=== PATIENT | female | born 1940 | race Caucasian/White ===

== ENCOUNTER 2020-08-07 14:30 | Emergency (ER) | payer MEDICARE, SELFPAY ==
[2020-08-07 15:12] VITALS: BP 194/73; PULSE 105; RESP 18; TEMP 36.6; O2SAT 95; BMI 21.6
[2020-08-07 16:31] LABS: Basophils Absolute Auto 0.1 X10*3/uL (0.0-0.2); Basophils Percent Auto 0.4 % (0-2); Eosinophils Percent Auto 0.1 % (0-4); Hematocrit 49.6 % (37-47); Hemoglobin 15.8 g/dl (12.0-16.0); Imm Gran Abs Auto 0.07 X10*3/uL (0.00-0.03); Imm Gran Pct Auto 0.5 % (0.0-0.4); Lymphocytes Absolute Auto 0.9 X10*3/uL (1.2-4.9); MANUAL DIFF FLAG NO; Mean Corpuscular HGB Conc 31.9 g/dl (31.0-35.0); Mean Corpuscular Hemoglobin 30.5 pg (27.0-33.0); Mean Corpuscular Volume 95.8 fL (80-98); Mean Platelet Volume 9.6 fL (9.4-12.3); Monocytes Absolute Auto 0.6 X10*3/uL (0.1-1.2); Monocytes Percent Auto 4.3 % (2-11); Neutrophils Absolute Auto 11.9 X10*3/uL (2.0-8.3); Neutrophils Percent Auto 87.7 % (45-73); OBS Int Ctl Valid YES; OBS1 NEG (NEG); Platelet Count 797 X10*3/uL (160-400); Red Blood Count 5.18 X10*6/uL (4.20-5.50); Red Cell Distribution Width 15.7 % (11.0-16.0); White Blood Count 13.5 X10*3/uL (4.8-10.8)
[2020-08-07] MEDS: 0.9 % Sodium Chloride 1,000 ML 999 ML IVCONT (16:33)
--- NOTE | 2020-08-07 16:41 | ED.GIBLEED ---
HPI - GI Bleed General Chief complaint: GI Bleed Stated complaint: Vaginal bleeding Time Seen by Provider: 08/07/20 15:59 Source: patient Mode of arrival: ambulatory History of Present Illness HPI Narrative: 79-year-old female with a past medical history of GI bleed, bleeding hemorrhoids, presenting to ED complaining of abdominal cramping, diarrhea and bright red blood per rectum x4 days. Also reports nausea and vomiting on Thursday which is resolved at present. Admits to similar symptoms in the past with her hemorrhoids. Denies taking anticoagulation. Denies fever, chills, dysuria, hematuria, lightheadedness/dizziness, rectal pain. Denies suspicious food intake or recent travel Related Data Previous Rx's Medication Instructions Recorded lisinopril 5 mg tablet 5 mg PO DAILY #30 tab 06/06/20 Allergies Allergy/AdvReac Type Severity Reaction Status Date / Time No Known Allergies Allergy Unknown Unverified 05/17/20 16:21 tetanus and diphtheria Allergy Unknown severe rash Verified 08/07/20 12:52 toxoids pineapple Allergy Unknown rash Uncoded 08/07/20 12:52 Review of Systems Review of Systems: Constitutional: No Weight loss, No Fever, No Chills, No Night Sweats, No Fatigue, No Malaise Cardiovascular: No Chest Pain, No SOB, No Edema Respiratory: No Cough, No Sputum, No Wheezing, No Smoke Exposure, No Dyspnea Gastrointestinal: + Nausea (resolved), + Vomiting (resolved), +Diarrhea, No Constipation, +Abdominal cramping, No Hematochezia, No Melena, +brbpr Genitourinary:No Dysuria, No Urinary Frequency, No Hematuria,No Flank Pain Musculoskeletal: No joint pain, No Myalgias, No Joint Swelling Skin: No Skin Lesions, No rash Neuro: No Weakness, No Numbness, No Paresthesias, No Loss of Consciousness, No Dizziness, No Headache Yes all other systems are reviewed and are negative PMFSH Past Medical History Attestation statement: The following information was validated with the patient. Medical History (Updated 08/07/20 @ 17:12 by AD Calderon) Bleeding hemorrhoids Social History Social History Alcohol intake: never Smoking Status: Never smoker Use of substances other than those prescribed or required for medical reasons: No Advance Directives: No Advance Directives Information Provided: No Physical Exam Vital Signs: Vital Signs: Last Vital Signs Temp 97.9 F 08/07/20 15:12 Pulse 105 H 08/07/20 15:12 Resp 18 08/07/20 15:12 BP 194/73 H 08/07/20 15:12 Pulse Ox 95 08/07/20 15:12 Body Mass Index 21.6 Const: General: cooperative and healthy appearing Orientation/consciousness: patient oriented x3 Limitations: no limitations HENMT: Head: Yes normal to inspection Ears: hearing grossly normal bilaterally General nose exam: Normal external nose present Face and sinus: Yes normal facial exam Eyes: General: appearance normal, both eyes and all related structures EOM: EOMs intact bilaterally Neck: Neck: Yes normal visual inspection and Yes no meningeal signs Resp: Effort & Inspection: normal respiratory effort Cardio: Rate: regular rate GI: Inspection: Yes normal to inspection Palpation (GI): Soft to palpation, nontender, no guarding and not rigid : Other: Non thrombosed or inflamed hemorrhoid noted on rectal General: Yes no CVA tenderness Back/Spine/Pelvis: Back: no CVA tenderness Skin: Rashes: no rashes Wounds: no wounds Neuro: General: patient oriented x3 and no meningeal signs Extrem: General: Yes normal to inspection Course Course Course Narrative: -1647--mild leukocytosis of 13.5, occult stool negative > likely hemorrhoidal bleeding --1700-potassium slightly elevated 5.2, BUN at baseline, AST slightly elevated, labs otherwise unremarkable Lab results discussed with patient including worrisome signs and symptoms and strict return precautions. Patient is to follow up with GI outpatient. She verbalized understanding and feels safe for discharge home MDM - GI Bleed MDM Narrative Medical decision making narrative: 79-year-old female with a past medical history of GI bleed, bleeding hemorrhoids, presenting to ED complaining of abdominal cramping, diarrhea and bright red blood per rectum x4 days. On exam mildly tachycardic, NAD/nontoxic appearing, abdomen soft and nontender, no rebound or guarding, no CVAT. Hemorrhoids noted on rectal. Concern for hemorrhoidal bleeding vs rectal bleed/occult bleed vs anemia vs gastroenteritis. Plan: Labs, UA, occult stool, reassess Differential Diagnosis Differential diagnosis: Likely hemorrhoids, infectious diarrhea, gastritis, Lower gastrointestinal hemorrhage, hematochezia and melena Lab Data Result diagrams: 08/07/20 16:20 08/07/20 16:20 Labs: Lab Results 08/07/20 08/07/20 08/07/20 Range/Units 16:20 16:20 16:20 WBC 13.5 H (4.8-10.8) X10*3/uL RBC 5.18 (4.20-5.50) X10*6/uL Hgb 15.8 (12.0-16.0) g/dl Hct 49.6 H (37-47) % MCV 95.8 (80-98) fL MCH 30.5 (27.0-33.0) pg MCHC 31.9 (31.0-35.0) g/dl RDW 15.7 (11.0-16.0) % Plt Count 797 H (160-400) X10*3/uL MPV 9.6 (9.4-12.3) fL Immature Gran % (Auto) 0.5 H (0.0-0.4) % Neut % (Auto) 87.7 H (45-73) % Lymph % (Auto) 7.0 L (20-40) % [place] % (Auto) 4.3 (2-11) % Eos % (Auto) 0.1 (0-4) % Baso % (Auto) 0.4 (0-2) % Lymph # (Auto) 0.9 L (1.2-4.9) X10*3/uL [place] # (Auto) 0.6 (0.1-1.2) X10*3/uL Eos # (Auto) 0.0 (0.0-0.4) X10*3/uL Baso # (Auto) 0.1 (0.0-0.2) X10*3/uL Abs Immat Gran (auto) 0.07 H (0.00-0.03) X10*3/uL Absolute Neuts (auto) 11.9 H (2.0-8.3) X10*3/uL Absolute Nucleated RBC 0.000 (0.0-0.012) X10*3/uL Nucleated RBC % (auto) 0.0 (0.0-0.2) /100WBC PT 11.8 (10.8-13.0) SEC INR 1.0 (0.9-1.1) APTT 37.7 (24.1-38.0) SEC Sodium 139 (135-145) mmol/L Potassium 5.2 H (3.3-5.1) mmol/l Chloride 102 (96-108) mmol/L Carbon Dioxide 24 (22-29) mmol/L Anion Gap 18 (12-20) BUN 18 H (9-16) mg/dL Creatinine 0.86 (0.5-1.4) mg/dL Estim Creat Clear Calc 45.3 Estimated GFR > 60 Random Glucose 100 (60-115) mg/dL Calcium 9.7 (8.4-10.2) mg/dL Magnesium 2.3 (1.6-2.6) mg/dL Total Bilirubin 0.5 (0.0-1.0) mg/dL Direct Bilirubin 0.2 (0.0-0.5) mg/dL AST 34 H (5-31) U/L ALT 24 (0-31) U/L Alkaline Phosphatase 64 (39-117) U/L Total Protein 7.6 (6.5-8.0) g/dL Albumin 5.0 (3.5-5.0) g/dL Lipase 37 (8-78) U/L Stool Occult Blood (NEG) 08/07/20 Range/Units 16:20 WBC (4.8-10.8) X10*3/uL RBC (4.20-5.50) X10*6/uL Hgb (12.0-16.0) g/dl Hct (37-47) % MCV (80-98) fL MCH (27.0-33.0) pg MCHC (31.0-35.0) g/dl RDW (11.0-16.0) % Plt Count (160-400) X10*3/uL MPV (9.4-12.3) fL Immature Gran % (Auto) (0.0-0.4) % Neut % (Auto) (45-73) % Lymph % (Auto) (20-40) % [place] % (Auto) (2-11) % Eos % (Auto) (0-4) % Baso % (Auto) (0-2) % Lymph # (Auto) (1.2-4.9) X10*3/uL [place] # (Auto) (0.1-1.2) X10*3/uL Eos # (Auto) (0.0-0.4) X10*3/uL Baso # (Auto) (0.0-0.2) X10*3/uL Abs Immat Gran (auto) (0.00-0.03) X10*3/uL Absolute Neuts (auto) (2.0-8.3) X10*3/uL Absolute Nucleated RBC (0.0-0.012) X10*3/uL Nucleated RBC % (auto) (0.0-0.2) /100WBC PT (10.8-13.0) SEC INR (0.9-1.1) APTT (24.1-38.0) SEC Sodium (135-145) mmol/L Potassium (3.3-5.1) mmol/l Chloride (96-108) mmol/L Carbon Dioxide (22-29) mmol/L Anion Gap (12-20) BUN (9-16) mg/dL Creatinine (0.5-1.4) mg/dL Estim Creat Clear Calc Estimated GFR Random Glucose (60-115) mg/dL Calcium (8.4-10.2) mg/dL Magnesium (1.6-2.6) mg/dL Total Bilirubin (0.0-1.0) mg/dL Direct Bilirubin (0.0-0.5) mg/dL AST (5-31) U/L ALT (0-31) U/L Alkaline Phosphatase (39-117) U/L Total Protein (6.5-8.0) g/dL Albumin (3.5-5.0) g/dL Lipase (8-78) U/L Stool Occult Blood NEG (NEG) Discharge Plan Discharge Clinical Impression: Bleeding hemorrhoid Patient Disposition: Home, Self-Care Instructions: Hemorrhoids (ED) Additional Instructions: Your blood work was reassuring/unremarkable today in the ED Your stool was negative for blood You bleeding is likely from hemorrhoids You need to follow-up with GI If bleeding persists or worsens, you develop constant worsening abdominal pain, nausea/vomiting, or unable to eat or drink, have fever, or lightheadedness/dizziness return to the ED immediately Prescriptions: No Action lisinopril 5 mg tablet 5 mg PO DAILY Qty: 30 RF: 3 Referrals: Andrea Doran MD [Physician] - 5 days
[2020-08-07 16:43] LABS: Prothrombin Time 11.8 SEC (10.8-13.0)
[2020-08-07 16:45] LABS: Partial Thromboplastin Time 37.7 SEC (24.1-38.0)
[2020-08-07 17:08] LABS: Alanine Aminotransferase 24 U/L (0-31); Alkaline Phosphatase 64 U/L (39-117); Anion Gap 18 (12-20); Aspartate Amino Transferase 34 U/L (5-31); Bilirubin Direct 0.2 mg/dL (0.0-0.5); Bilirubin Total 0.5 mg/dL (0.0-1.0); Blood Urea Nitrogen 18 mg/dL (9-16); Calcium 9.7 mg/dL (8.4-10.2); Carbon Dioxide 24 mmol/L (22-29); Chloride 102 mmol/L (96-108); Creatinine Clr Calc Pharmacy 45.3; Estimated Glomerular Filt Rate > 60; Glucose Random 100 mg/dL (60-115); Lipase 37 U/L (8-78); Magnesium 2.3 mg/dL (1.6-2.6); Potassium 5.2 mmol/l (3.3-5.1); Sodium 139 mmol/L (135-145); Total Protein 7.6 g/dL (6.5-8.0)
[2020-08-07 17:23] VITALS: BP 165/57; PULSE 93; TEMP 36.7; O2SAT 98
[2020-08-07 17:25] LABS: Glucose Urine UA NEG (NEG); Leukocyte Esterase Urine NEG (NEG); Nitrite Urine NEG (NEG); PH 5.5 (5.0-8.0); Specific Gravity - Urine >= 1.030 (1.005-1.025); Urine Blood 1+ (NEG); Urine Ketones 40 MG/DL (NEG); Urine Protein NEG (NEG-TRACE)
[2020-08-07 17:31] LABS: Appearance Urine CLEAR; Color Urine YELLOW
[2020-08-07 17:35] LABS: Bacteria Urine 1+ /LPF; Squamous Epithelial Cell Urine 1+ /LPF
== END 2020-08-07 19:11 | disposition home or self-care (01) ==
PROVIDERS: Physician Assistant; Emergency Provider Emergency Medicine; PCP Internal Medicine
DX: K64.9 Unspecified hemorrhoids (principal); K62.5 Hemorrhage of anus and rectum; R11.2 Nausea with vomiting, unspecified
CPT/HCPCS: 36415; 80048; 80076; 81001; 82272; 83690; 83735; 85025; 85610; 85730; 96360; 99284

== ENCOUNTER 2020-09-04 08:51 | Outpatient (REF) | payer MEDICARE, SELFPAY ==
[2020-09-04 11:15] LABS: MANUAL DIFF FLAG NO
[2020-09-04 11:33] LABS: Basophils Absolute Auto 0.1 X10*3/uL (0.0-0.2); Eosinophils Absolute Auto 0.2 X10*3/uL (0.0-0.4); Eosinophils Percent Auto 2.1 % (0-4); Hematocrit 47.8 % (37-47); Hemoglobin 15.1 g/dl (12.0-16.0); Imm Gran Abs Auto 0.02 X10*3/uL (0.00-0.03); Imm Gran Pct Auto 0.2 % (0.0-0.4); Lymphocytes Absolute Auto 1.8 X10*3/uL (1.2-4.9); Lymphocytes Percent Auto 20.8 % (20-40); Mean Corpuscular HGB Conc 31.6 g/dl (31.0-35.0); Mean Corpuscular Hemoglobin 30.9 pg (27.0-33.0); Monocytes Absolute Auto 0.5 X10*3/uL (0.1-1.2); Monocytes Percent Auto 6.4 % (2-11); Neutrophils Absolute Auto 5.8 X10*3/uL (2.0-8.3); Neutrophils Percent Auto 69.5 % (45-73); Platelet Count 793 X10*3/uL (160-400); Red Blood Count 4.88 X10*6/uL (4.20-5.50); Red Cell Distribution Width 15.8 % (11.0-16.0); White Blood Count 8.4 X10*3/uL (4.8-10.8)
[2020-09-04 11:52] LABS: Alanine Aminotransferase 21 U/L (0-31); Albumin Level 4.7 g/dL (3.5-5.0); Alkaline Phosphatase 55 U/L (39-117); Anion Gap 15 (12-20); Aspartate Amino Transferase 25 U/L (5-31); Bilirubin Total 0.4 mg/dL (0.0-1.0); Blood Urea Nitrogen 20 mg/dL (9-16); Calcium 9.4 mg/dL (8.4-10.2); Carbon Dioxide 27 mmol/L (22-29); Chloride 102 mmol/L (96-108); Estimated Glomerular Filt Rate > 60; Glucose Random 90 mg/dL (60-115); Potassium 5.2 mmol/l (3.3-5.1); Sodium 139 mmol/L (135-145); Total Protein 7.1 g/dL (6.5-8.0)
[2020-09-04 12:00] LABS: TSH reflex Free T4 2.39 mIU/mL (0.32-4.0)
== END 2020-09-04 08:52 | disposition home or self-care (01) ==
LOC: HO.HMGCLDS 08:51
PROVIDERS: PCP Internal Medicine; Visit Provider Internal Medicine
DX: I10 Essential (primary) hypertension (principal); E03.9 Hypothyroidism, unspecified; D47.3 Essential (hemorrhagic) thrombocythemia
CPT/HCPCS: 36415; 80053; 84443; 85025

== ENCOUNTER 2020-10-03 | Outpatient (REF) | payer MEDICARE, SELFPAY | END 2020-10-03 00:01 | disposition home or self-care (01) | LOC: HO.VC | PROVIDERS: Visit Provider Internal Medicine | DX: Z23 Encounter for immunization (principal) | CPT/HCPCS: 0011A ==

== ENCOUNTER 2020-10-30 | Outpatient (REF) | payer MEDICARE, SELFPAY | END 2020-10-30 00:01 | disposition home or self-care (01) | LOC: HO.VC | PROVIDERS: Visit Provider Internal Medicine | DX: Z23 Encounter for immunization (principal) | CPT/HCPCS: 0012A ==

== ENCOUNTER → 2020-11-29 12:59 | Outpatient (BNV) | payer MEDICARE, SELFPAY | PROVIDERS: PCP Internal Medicine; Visit Provider Internal Medicine Medical Oncology | DX: D47.3 Essential (hemorrhagic) thrombocythemia (principal) | CPT/HCPCS: 99213; 99214 ==

== ENCOUNTER 2021-03-26 13:05 | Outpatient (REF) | payer MEDICARE, SELFPAY ==
[2021-03-26 13:56] LABS: MANUAL DIFF FLAG NO
[2021-03-26 14:03] LABS: Basophils Absolute Auto 0.1 X10*3/uL (0.0-0.2); Basophils Percent Auto 0.8 % (0-2); Eosinophils Absolute Auto 0.1 X10*3/uL (0.0-0.4); Eosinophils Percent Auto 0.6 % (0-4); Hematocrit 48.6 % (37-47); Hemoglobin 15.5 g/dl (12.0-16.0); Imm Gran Abs Auto 0.04 X10*3/uL (0.00-0.03); Imm Gran Pct Auto 0.4 % (0.0-0.4); Lymphocytes Absolute Auto 1.5 X10*3/uL (1.2-4.9); Lymphocytes Percent Auto 15.3 % (20-40); Mean Corpuscular HGB Conc 31.9 g/dl (31.0-35.0); Mean Corpuscular Hemoglobin 30.7 pg (27.0-33.0); Mean Corpuscular Volume 96.2 fL (80-98); Mean Platelet Volume 9.7 fL (9.4-12.3); Monocytes Absolute Auto 0.6 X10*3/uL (0.1-1.2); Monocytes Percent Auto 5.9 % (2-11); Neutrophils Absolute Auto 7.6 X10*3/uL (2.0-8.3); Platelet Count 877 X10*3/uL (160-400); Red Blood Count 5.05 X10*6/uL (4.20-5.50); Red Cell Distribution Width 16.2 % (11.0-16.0); White Blood Count 9.9 X10*3/uL (4.8-10.8)
[2021-03-26 14:16] LABS: Anion Gap 14 (12-20); Blood Urea Nitrogen 14 mg/dL (9-16); Calcium 10.4 mg/dL (8.4-10.2); Carbon Dioxide 28 mmol/L (22-29); Chloride 103 mmol/L (96-108); Estimated Glomerular Filt Rate 60; Glucose Random 99 mg/dL (60-115); Potassium 5.4 mmol/L (3.3-5.1); Sodium 140 mmol/L (135-145)
[2021-03-26 14:40] LABS: TSH reflex Free T4 1.79 uIU/mL (0.32-4.0)
== END 2021-03-26 13:06 | disposition home or self-care (01) ==
LOC: HO.HMGCLDS 13:05
PROVIDERS: PCP Internal Medicine; Visit Provider Internal Medicine
DX: D47.3 Essential (hemorrhagic) thrombocythemia (principal); E03.8 Other specified hypothyroidism; I10 Essential (primary) hypertension; M81.0 Age-related osteoporosis without current pathological fracture
CPT/HCPCS: 36415; 80048; 84443; 85025

== ENCOUNTER 2021-05-20 14:10 | Outpatient (REF) | payer MEDICARE, SELFPAY ==
--- NOTE | ~2021-05-20 | XR_ITS ---
EXAMINATION: XR FOREARM, RIGHT CLINICAL INFORMATION: Hemorrhage COMPARISON: None TECHNIQUE: AP and lateral views of the right forearm were obtained. FINDINGS: The bones and soft tissues are normal. No fracture. Imaged portions of the elbow and wrist are unremarkable. XR/XR forearm RT 2V IMPRESSION: Normal right forearm.
== END 2021-05-20 14:11 | disposition home or self-care (01) ==
LOC: HO.HMGCX 14:10
PROVIDERS: PCP Internal Medicine; Visit Provider Internal Medicine
DX: Z13.89 Encounter for screening for other disorder (principal)
CPT/HCPCS: 73090

== ENCOUNTER 2021-05-30 09:09 | Outpatient (REF) | payer MEDICARE, SELFPAY ==
--- NOTE | ~2021-05-30 | XR_ITS ---
EXAMINATION: XR SACRUM AND COCCYX CLINICAL INFORMATION: Sacral pain. COMPARISON: None TECHNIQUE: 2 views of the sacrum and 2 views of the coccyx were obtained. FINDINGS: There are no fractures. No bone, joint or soft tissue abnormality is demonstrated. XR/XR sacrum coccyx min 2V IMPRESSION: Unremarkable SI joints and sacrum. The soft tissues are unremarkable.
== END 2021-05-30 09:10 | disposition home or self-care (01) ==
LOC: HO.HMGCX 09:09
PROVIDERS: PCP Internal Medicine; Visit Provider Internal Medicine
DX: Z13.89 Encounter for screening for other disorder (principal)
CPT/HCPCS: 72220

== ENCOUNTER 2021-07-24 15:05 | Outpatient (REF) | payer MEDICARE, SELFPAY ==
[2021-07-24 15:50] LABS: Influenza A PCR NEGATIVE (Negative); Influenza B PCR NEGATIVE (Negative); Resp Syncy Virus RNA Qual PCR NEGATIVE (Negative); SARS COV2 PCR INHOUSE NEGATIVE (Negative)
== END 2021-07-24 15:06 | disposition home or self-care (01) ==
LOC: HO.LNP 15:05
PROVIDERS: Visit Provider Physician Assistant Medical
DX: J06.9 Acute upper respiratory infection, unspecified (principal); B34.9 Viral infection, unspecified; Z20.822 Contact with and (suspected) exposure to COVID-19
CPT/HCPCS: 0241U; 87071

== ENCOUNTER 2021-09-24 12:01 | Outpatient (REF) | payer MEDICARE, SELFPAY ==
[2021-09-24 13:49] LABS: MANUAL DIFF FLAG NO
[2021-09-24 13:54] LABS: Basophils Absolute Auto 0.1 X10*3/uL (0.0-0.2); Basophils Percent Auto 0.8 % (0-2); Eosinophils Absolute Auto 0.2 X10*3/uL (0.0-0.4); Eosinophils Percent Auto 1.6 % (0-4); Hematocrit 48.2 % (37.0-47.0); Hemoglobin 15.4 g/dl (12.0-16.0); Imm Gran Abs Auto 0.03 X10*3/uL (0.00-0.03); Imm Gran Pct Auto 0.3 % (0.0-0.4); Lymphocytes Absolute Auto 1.8 X10*3/uL (1.2-4.9); Lymphocytes Percent Auto 18.7 % (20-40); Mean Corpuscular Volume 97.2 fL (80.0-98.0); Mean Platelet Volume 9.7 fL (9.4-12.3); Monocytes Absolute Auto 0.8 X10*3/uL (0.1-1.2); Monocytes Percent Auto 7.8 % (2-11); Neutrophils Absolute Auto 6.9 x10*3/uL (2.0-8.3); Neutrophils Percent Auto 70.8 % (45-73); Platelet Count 846 X10*3/uL (160-400); Red Blood Count 4.96 X10*6/uL (4.20-5.50); Red Cell Distribution Width 16.2 % (11.0-16.0); White Blood Count 9.8 X10*3/uL (4.8-10.8)
[2021-09-24 14:10] LABS: Alanine Aminotransferase 18 U/L (0-31); Albumin Level 4.5 g/dL (3.5-5.0); Alkaline Phosphatase 63 U/L (39-117); Anion Gap 13 (12-20); Aspartate Amino Transferase 25 U/L (5-31); Bilirubin Total 0.4 mg/dL (0.0-1.0); Blood Urea Nitrogen 19 mg/dL (9-16); Calcium 10.5 mg/dL (8.4-10.2); Carbon Dioxide 30 mmol/L (22-29); Chloride 102 mmol/L (96-108); Estimated Glomerular Filt Rate > 60; Glucose Random 95 mg/dL (60-115); Potassium 5.3 mmol/L (3.3-5.1); Sodium 140 mmol/L (135-145); Total Protein 7.1 g/dL (6.5-8.0)
[2021-09-24 14:31] LABS: TSH reflex Free T4 1.82 uIU/mL (0.32-4.0)
== END 2021-09-24 12:02 | disposition home or self-care (01) ==
LOC: HO.HMGCLDS 12:01
PROVIDERS: PCP Internal Medicine; Visit Provider Internal Medicine
DX: E03.8 Other specified hypothyroidism (principal); E87.5 Hyperkalemia; I10 Essential (primary) hypertension; D47.3 Essential (hemorrhagic) thrombocythemia
CPT/HCPCS: 36415; 80053; 84443; 85025

== ENCOUNTER 2022-03-25 11:46 | Outpatient (REF) | payer MEDICARE, SELFPAY ==
[2022-03-25 13:45] LABS: MANUAL DIFF FLAG NO
[2022-03-25 13:52] LABS: Basophils Absolute Auto 0.1 X10*3/uL (0.0-0.2); Basophils Percent Auto 0.9 % (0-2); Eosinophils Absolute Auto 0.1 X10*3/uL (0.0-0.4); Eosinophils Percent Auto 1.1 % (0-4); Hematocrit 48.8 % (37.0-47.0); Hemoglobin 15.8 g/dl (12.0-16.0); Imm Gran Abs Auto 0.02 X10*3/uL (0.00-0.03); Imm Gran Pct Auto 0.2 % (0.0-0.4); Lymphocytes Absolute Auto 1.5 X10*3/uL (1.2-4.9); Lymphocytes Percent Auto 17.2 % (20-40); Mean Corpuscular HGB Conc 32.4 g/dl (31.0-35.0); Mean Corpuscular Hemoglobin 31.5 pg (27.0-33.0); Mean Corpuscular Volume 97.4 fL (80.0-98.0); Mean Platelet Volume 9.5 fL (9.4-12.3); Monocytes Absolute Auto 0.5 X10*3/uL (0.1-1.2); Neutrophils Absolute Auto 6.5 x10*3/uL (2.0-8.3); Neutrophils Percent Auto 74.6 % (45-73); Platelet Count 816 X10*3/uL (160-400); Red Blood Count 5.01 X10*6/uL (4.20-5.50); Red Cell Distribution Width 16.4 % (11.0-16.0); White Blood Count 8.7 X10*3/uL (4.8-10.8)
[2022-03-25 16:20] LABS: Alanine Aminotransferase 21 U/L (0-31); Albumin Level 4.7 g/dL (3.5-5.0); Alkaline Phosphatase 63 U/L (39-117); Anion Gap 15 (12-20); Aspartate Amino Transferase 26 U/L (5-31); Bilirubin Total 0.5 mg/dL (0.0-1.0); Blood Urea Nitrogen 15 mg/dL (9-16); Calcium 9.9 mg/dL (8.4-10.2); Carbon Dioxide 28 mmol/L (22-29); Chloride 103 mmol/L (96-108); Cholesterol 238 mg/dL; Estimated Glomerular Filt Rate > 60; Glucose Random 76 mg/dL (60-115); HDL Cholesterol 86 mg/dL; LDL Cholesterol Calculated 126 mg/dl; Potassium 5.6 mmol/L (3.3-5.1); Sodium 140 mmol/L (135-145); Total Protein 7.1 g/dL (6.5-8.0); Triglycerides 130 mg/dL
[2022-03-25 16:33] LABS: TSH reflex Free T4 1.23 uIU/mL (0.32-4.0)
== END 2022-03-25 11:47 | disposition home or self-care (01) ==
LOC: HO.HMGCLDS 11:46
PROVIDERS: PCP Internal Medicine; Visit Provider Internal Medicine
DX: D47.3 Essential (hemorrhagic) thrombocythemia (principal); E03.8 Other specified hypothyroidism; I10 Essential (primary) hypertension; M81.0 Age-related osteoporosis without current pathological fracture
CPT/HCPCS: 36415; 80053; 80061; 84443; 85025

== ENCOUNTER 2022-07-30 10:22 | Outpatient (REF) | payer MEDICARE, SELFPAY ==
[2022-07-30 11:02] LABS: MANUAL DIFF FLAG NO
[2022-07-30 11:13] LABS: Basophils Absolute Auto 0.1 X10*3/uL (0.0-0.2); Basophils Percent Auto 1.2 % (0-2); Eosinophils Absolute Auto 0.1 X10*3/uL (0.0-0.4); Hematocrit 49.9 % (37.0-47.0); Hemoglobin 16.1 g/dl (12.0-16.0); Imm Gran Abs Auto 0.04 X10*3/uL (0.00-0.03); Imm Gran Pct Auto 0.4 % (0.0-0.4); Lymphocytes Absolute Auto 1.4 X10*3/uL (1.2-4.9); Lymphocytes Percent Auto 15.1 % (20-40); Mean Corpuscular HGB Conc 32.3 g/dl (31.0-35.0); Mean Corpuscular Volume 99.2 fL (80.0-98.0); Mean Platelet Volume 9.6 fL (9.4-12.3); Monocytes Absolute Auto 0.7 X10*3/uL (0.1-1.2); Monocytes Percent Auto 7.1 % (2-11); Neutrophils Absolute Auto 7.1 x10*3/uL (2.0-8.3); Neutrophils Percent Auto 75.2 % (45-73); Platelet Count 861 X10*3/uL (160-400); Red Blood Count 5.03 X10*6/uL (4.20-5.50); Red Cell Distribution Width 16.8 % (11.0-16.0); White Blood Count 9.4 X10*3/uL (4.8-10.8)
[2022-07-30 12:03] LABS: TSH reflex Free T4 1.79 uIU/mL (0.32-4.0)
[2022-07-30 12:11] LABS: Alanine Aminotransferase 24 U/L (0-31); Albumin Level 4.5 g/dL (3.5-5.0); Alkaline Phosphatase 65 U/L (39-117); Anion Gap 15 (12-20); Aspartate Amino Transferase 25 U/L (5-31); Bilirubin Total 0.3 mg/dL (0.0-1.0); Blood Urea Nitrogen 18 mg/dL (9-16); Calcium 10.2 mg/dL (8.4-10.2); Carbon Dioxide 29 mmol/L (22-29); Chloride 101 mmol/L (96-108); Estimated Glomerular Filt Rate > 60; Glucose Random 95 mg/dL (60-115); Potassium 5.7 mmol/L (3.3-5.1); Sodium 139 mmol/L (135-145); Total Protein 6.9 g/dL (6.5-8.0)
== END 2022-07-30 10:23 | disposition home or self-care (01) ==
LOC: HO.HMGCLDS 10:22
PROVIDERS: PCP Internal Medicine; Visit Provider Internal Medicine
DX: D47.3 Essential (hemorrhagic) thrombocythemia (principal); E03.8 Other specified hypothyroidism; I10 Essential (primary) hypertension; M81.0 Age-related osteoporosis without current pathological fracture; E87.5 Hyperkalemia; R00.0 Tachycardia, unspecified; F41.1 Generalized anxiety disorder
CPT/HCPCS: 36415; 80053; 84443; 85025

== ENCOUNTER 2022-08-04 08:07 | Outpatient (REF) | payer MEDICARE, SELFPAY ==
[2022-08-04 11:48] LABS: Anion Gap 13 (12-20); Blood Urea Nitrogen 18 mg/dL (9-16); Carbon Dioxide 29 mmol/L (22-29); Chloride 103 mmol/L (96-108); Estimated Glomerular Filt Rate > 60; Glucose Random 77 mg/dL (60-115); Potassium 5.5 mmol/L (3.3-5.1); Sodium 139 mmol/L (135-145)
== END 2022-08-04 08:08 | disposition home or self-care (01) ==
LOC: HO.HMGCLDS 08:07
PROVIDERS: PCP Internal Medicine; Visit Provider Internal Medicine
DX: E87.5 Hyperkalemia (principal)
CPT/HCPCS: 36415; 80048

== ENCOUNTER 2022-09-02 13:47 | Outpatient (REF) | payer MEDICARE, SELFPAY ==
--- NOTE | ~2022-09-02 | MM_ITS ---
EXAMINATION: MM SCREENING DIGITAL BREAST TOMOSYNTHESIS, BILATERAL CLINICAL INFORMATION: Screening. Asymptomatic. The lifetime risk of breast cancer based on the Tyrer-Cuzick Model is 2%. COMPARISON: Outside mammography: 06/13/2021, 04/05/2020, 12/27/2018 ([facility]) TECHNIQUE: Digital breast tomosynthesis is performed in both the craniocaudal and mediolateral oblique views along with computer-aided detection (CAD). Synthesized 2D images are generated from the tomosynthesis. Additional bilateral exaggerated CC views are provided. FINDINGS: The breasts are heterogeneously dense, which may obscure small masses (ACR BI-RADS breast composition Category c). There are no significant masses, abnormal calcifications, or other abnormalities. Parenchymal pattern is similar to prior outside studies. There is no developing density or architectural abnormality. Incidental low right axillary tail node is stable. The axilla and skin contours are unremarkable. No significant changes. MM/MM tomosynthesis screening BI IMPRESSION: No mammographic evidence of malignancy. ASSESSMENT: BI-RADS 2: Benign RECOMMENDATION: Routine annual mammography screening. This patient's information was entered into a reminder system with a target due date for their next mammogram.
--- NOTE | ~2022-09-02 | MM_ITS ---
EXAMINATION: BONE DENSITOMETRY CLINICAL INDICATION: Osteoporosis. COMPARISON: Previous BD dated 02/16/2018 and baseline BD dated 05/23/2008. TECHNIQUE: Using a [employer] DXA System (software version: 13.1) manufactured by [employer], dual-energy x-ray absorptiometry was performed of the lumbar spine and left hip. The images are of good technical quality. Summary results are attached. FINDINGS: AP SPINE L1-L4: Current: BMD 0.928 g/cm2, Z-score 0.1, T-score -2.1, osteopenia, 3.9% decrease from previous, 0.2% decrease from baseline (<5% change is not significant). Prior: BMD 0.966 g/cm2. Baseline: BMD 0.930 g/cm2. LEFT FEMUR, NECK: Current: BMD 0.756 g/cm2, Z-score 0.3, T-score -2.0, osteopenia. Prior: BMD 0.782 g/cm2. Baseline: BMD 0.784 g/cm2. LEFT FEMUR, TOTAL: Current: BMD 0.687 g/cm2, Z-score -0.3, T-score -2.5, osteoporosis, 3.8% decrease from previous, 7.2% decrease from baseline (<5% change is not significant). Prior: BMD 0.714 g/cm2. Baseline: BMD 0.740 g/cm2. IDENTIFIED RISK FACTORS: Early menopause, hysterectomy, alcohol (3 or more units per day), bilateral oophorectomy. HISTORY OF FRACTURE: None listed. MEDICATIONS: Calcium or multivitamin. Vitamin D, bisphosphonate. MM/XR DEXA axial skeleton IMPRESSION: 1. DIAGNOSIS: Osteoporosis based on the lowest T-score value of -2.5 in the total femur applying World Health Organization criteria. 2. 10-YEAR FRACTURE RISK PREDICTION, FRAX: According to the guidelines, FRAX calculation should only be performed on patients in the osteopenia bone density category. Therefore, FRAX was not performed on this patient. 3. Treatment Recommendations: NOF guidelines recommend consideration for treatment in postmenopausal women and men age 50 and older presenting with the following: -A hip or vertebral (clinical or morphometric) fracture. -T-score less than or equal to -2.5 at the femoral neck or spine after appropriate evaluation to exclude secondary causes. -Low bone mass at the hip or spine and a 10-year fracture probability by FRAX of greater than or equal to 3% for hip fracture or greater than or equal to 20% for major osteoporotic fracture based on the [place] adapted WHO algorithm. 4. Other Recommendations: All treatment decisions require clinical judgment and consideration of individual patient factors, including patient preferences, comorbidities, previous drug use, risk factors not captured in the FRAX model (e.g. frailty, falls, vitamin D deficiency, increased bone turnover, interval significant decline in bone density) and possible under or overestimation of fracture risk by FRAX. Additional medical evaluation for secondary cause of low bone mineral density may be appropriate. FUTURE SCAN RECOMMENDATION: People with diagnosed cases of osteoporosis or at high risk for fracture should have regular bone mineral density tests. For patients eligible for Medicare, routine testing is allowed once every 2 years. The testing frequency can be increased to one year for patients who have rapidly progressing disease, those who are receiving or discontinuing medical therapy to restore bone mass, or have additional risk factors.
== END 2022-09-02 13:48 | disposition home or self-care (01) ==
LOC: HO.MAMMO 13:47
PROVIDERS: PCP Internal Medicine; Visit Provider Internal Medicine
DX: Z12.31 Encounter for screening mammogram for malignant neoplasm of breast (principal); M81.0 Age-related osteoporosis without current pathological fracture
CPT/HCPCS: 77063; 77067; 77080

== ENCOUNTER 2022-11-04 15:22 | Outpatient (REF) | payer MEDICARE, SELFPAY ==
[2022-11-04 17:01] LABS: Anion Gap 16 (12-20); Blood Urea Nitrogen 18 mg/dL (9-16); Calcium 9.8 mg/dL (8.4-10.2); Carbon Dioxide 25 mmol/L (22-29); Chloride 103 mmol/L (96-108); Estimated Glomerular Filt Rate > 60; Potassium 5.2 mmol/L (3.3-5.1); Sodium 139 mmol/L (135-145)
[2022-11-04 19:08] LABS: Potassium Urine Random 73.8 mmol/L
[2022-11-04 19:36] LABS: Osmolality Urine 625 mosm/kg (373-1093)
== END 2022-11-04 15:23 | disposition home or self-care (01) ==
LOC: HO.LAB 15:22
PROVIDERS: PCP Internal Medicine; Visit Provider Internal Medicine Nephrology
DX: E87.5 Hyperkalemia (principal); I10 Essential (primary) hypertension
CPT/HCPCS: 36415; 80051; 82310; 82565; 83935; 84133; 84300; 84520

== ENCOUNTER 2023-01-10 09:30 | Emergency (ER) | payer MEDICARE, SELFPAY ==
[2023-01-10 09:35] VITALS: BP 157/72; BP 178/86; PULSE 69; PULSE 78; RESP 16; TEMP 36.9; O2SAT 98; O2SAT 99; BMI 21.0
[2023-01-10 09:43] VITALS: BP 157/72; PULSE 69; RESP 16; TEMP 36.9; O2SAT 99
--- NOTE | 2023-01-10 09:51 | ED_ITS ---
HPI - Extremity Injury (Lower) General Chief Complaint: Extremity Injury, Lower Stated Complaint: lower extremity pain per EMS Time Seen by Provider: 01/10/23 09:39 Source: patient Mode of arrival: ambulatory Limitations: no limitations History of Present Illness HPI Narrative: 82-year-old female came in for patient bilateral lower extremity weakness. Patient described her as a weakness from mid thigh to both knees, usually more in the morning than improved as the day wear on, with no trauma, no recent fall, patient confirmed the symptoms to her both lower extremities, no headache, no CP, no SOB, no fever, no chills. Related Data Home Medications Medication Instructions Recorded Confirmed aspirin 81 mg tablet,delayed 81 mg PO DAILY 09/25/20 01/06/23 release (Adult Low Dose Aspirin) Previous Rx's Medication Instructions Recorded levothyroxine 50 mcg tablet 50 mcg PO DAILY 90 days #90 tabs 05/22/22 atenolol 25 mg tablet 25 mg PO DAILY 90 days #90 tabs 08/27/22 alendronate 70 mg tablet (Fosamax) 70 mg PO QWEEK 90 days #13 tabs 09/15/22 Allergies Allergy/AdvReac Type Severity Reaction Status Date / Time No Known Allergies Allergy Unknown Verified 01/06/23 15:22 Review of Systems Review of Systems: All other systems are reviewed and are negative Constitutional: Reports as per HPI and Reports no additional constitutional complaints Eyes: Reports as per HPI and Reports no additional eye complaints Reports system reviewed and no additional complaints, except as documented Cardiovascular: Reports as per HPI and Reports no additional cardiovascular complaints Respiratory: Reports as per HPI and Reports no additional respiratory complaints Gastrointestinal: Reports as per HPI and Reports no additional gastrointestinal complaints Genitourinary: Reports no additional female genitourinary complaints Musculoskeletal: Reports no additional musculoskeletal complaints Skin/Breast: Reports system reviewed and no additional complaints, except as docu Psychiatric: Reports no additional psychiatric complaints Endocrine: Reports no additional endocrine complaints Hematologic/Lymphatic: Reports no additional hematologic/lymphatic complaints Allergic/Immunologic: Reports no additional allergic/immunologic complaints Reports system reviewed and no additional complaints, except as documented and Reports Abnormal speech present [facility] Past Medical History Medical History Bleeding hemorrhoids Family History Family History Father Family hx of colon cancer Social History Social History Household Members: Spouse Housing: [facility] Are you a primary health care / medical job titles to a significant other at home: No Do you presently have visiting nurse or other home services: No Alcohol intake: current Alcohol intake frequency: 0-2 drinks per day Alcohol type: hard liquor Patient Tobacco Use Status: Never used Tobacco Smoked in Last 30 Days: No e-Cigarette/Vaping Use: Never Used Second Hand Smoke Exposure: No Use of substances other than those prescribed or required for medical reasons: No Advance Directives: Yes Advance Directives Information Provided: No Advance Directives on File: No service: No Current occupational status: retired Cognitive needs: No Hearing needs: No Vision needs: Yes Physical Exam Vital Signs: Vital Signs: Last Vital Signs Temp 98.4 F 01/10/23 09:43 Pulse 69 01/10/23 09:43 Resp 16 01/10/23 09:43 BP 157/72 H 01/10/23 09:43 Pulse Ox 99 01/10/23 09:43 O2 Del Method Room Air 01/10/23 09:43 BMI result Body Mass Index 21.0 Vital signs have been reviewed as appeared to be correct. Blood pressure normal. Heart rate normal. Respiration rate normal. Temperature normal. Oxygen saturation normal. Appearance: Alert. Oriented X3. No acute distress. Head: Normal external exam. Normocephalic. Atraumatic. No Alexandra signs noted. No raccoon eyes noted Eyes: PERRLA. EOMI. Conjunctiva and sclera normal. Eyelids normal. ENT: TM's Normal. Pharynx normal. Uvula midline. Moist mucous membranes. No trismus noted. No drooling noted. No muffled voice noted. Neck: Normal inspection. Neck supple. FROM. No adenopathy. Thyroid Normal. No meningeal signs. No neck mass noted. CVS: Normal heart rate and rhythm. Heart sound normal. No murmurs noted. Pulses normal throughout. Respiratory: No respiratory distress. Painless inspiration. Breath sounds normal. No wheezes/rales/rhonchi noted. Chest nontender. No accessory muscle usage noted or decreased air movement noted. Abdomen: Soft and nontender. Bowel sounds normal in all 4 quadrants. No distention noted. No organomegaly noted. No visible injury noted. Back: No CVA tenderness. Full range of motion noted. Skin: Skin warm and dry. Normal skin color. Normal skin turgor. No rashes/lesions/lacerations noted. Extremities: No lower extremity edema. Extremities exhibit normal range of motion. Extremities nontender. Neuro: Oriented X 3. Cranial nerve exam: II-XII are grossly intact No motor deficit. No sensory deficit. Reflexes normal. Course Course Course Narrative: Nonspecific bilateral lower extremities weakness, unremarkable labs, patient is able to ambulate unsteady gait in the emergency department without concern. Medications Administered Discontinued Medications Generic Name Dose Route Start Last Admin Trade Name Freq PRN Reason Stop Dose Admin Sodium Chloride 1,000 mls @ 999 mls/hr 01/10/23 09:50 01/10/23 12:09 Ns IV 01/10/23 10:50 Infused .[id number] ONE Infusion Medical Decision Making Differential Diagnosis Differential Diagnoses: The differential diagnosis associated with the presentation includes (Rhabdomyolysis, electrolyte abnormalities, severe anemia.) Admission/Observation Consideration of admission/observation: Escalation of care including admission/observation considered Lab Data MDM Lab Attestation statement: I reviewed the patient's lab results. 01/10/23 10:14 01/10/23 10:14 Labs: Lab Results 01/10/23 01/10/23 01/10/23 Range/Units 10:14 10:14 10:14 WBC 8.8 (4.8-10.8) X10*3/uL RBC 5.12 (4.20-5.50) X10*6/uL Hgb 16.2 H (12.0-16.0) g/dl Hct 49.2 H (37.0-47.0) % MCV 96.1 (80.0-98.0) fL MCH 31.6 (27.0-33.0) pg MCHC 32.9 (31.0-35.0) g/dl RDW 17.6 H (11.0-16.0) % Plt Count 776 H (160-400) X10*3/uL MPV 9.2 L (9.4-12.3) fL Immature Gran % (Auto) 0.3 (0.0-0.4) % Neut % (Auto) 79.9 H (45-73) % Lymph % (Auto) 13.7 L (20-40) % [place] % (Auto) 4.0 (2-11) % Eos % (Auto) 1.0 (0-4) % Baso % (Auto) 1.1 (0-2) % Lymph # (Auto) 1.2 (1.2-4.9) X10*3/uL [place] # (Auto) 0.4 (0.1-1.2) X10*3/uL Eos # (Auto) 0.1 (0.0-0.4) X10*3/uL Baso # (Auto) 0.1 (0.0-0.2) X10*3/uL Abs Immat Gran (auto) 0.03 (0.00-0.03) X10*3/uL Absolute Neuts (auto) 7.0 (2.0-8.3) x10*3/uL Absolute Nucleated RBC 0.000 (0.0-0.012) X10*3/uL Nucleated RBC % (auto) 0.0 (0.0-0.2) /100WBC Sodium 143 (135-145) mmol/L Potassium 4.5 (3.3-5.1) mmol/L Chloride 107 (96-108) mmol/L Carbon Dioxide 27 (22-29) mmol/L Anion Gap 14 (12-20) BUN 13 (9-16) mg/dL Creatinine 0.84 (0.5-1.4) mg/dL Estim Creat Clear Calc 44.1 Estimated GFR > 60 Random Glucose 90 (60-115) mg/dL Calcium 9.7 (8.4-10.2) mg/dL Total Bilirubin 0.4 (0.0-1.0) mg/dL Direct Bilirubin 0.1 (0.0-0.5) mg/dL AST 21 (5-31) U/L ALT 18 (0-31) U/L Alkaline Phosphatase 59 (39-117) U/L Total Creatine Kinase 37 (26-140) U/L Troponin I High Sens < 2.7 (<3.5-17.0) ng/L Total Protein 6.6 (6.5-8.0) g/dL Albumin 4.3 (3.5-5.0) g/dL Lipase 57 (8-78) U/L Urine Color Urine Appearance Urine pH (5.0-9.0) Ur Specific [place] (1.005-1.025) Urine Protein (Neg-Trace) mg/dL Urine Glucose (UA) (Negative) mg/dL Urine Ketones (Negative) mg/dL Urine Blood (Negative) Urine Nitrite (Negative) Ur Leukocyte Esterase (Negative) 01/10/23 Range/Units 12:00 WBC (4.8-10.8) X10*3/uL RBC (4.20-5.50) X10*6/uL Hgb (12.0-16.0) g/dl Hct (37.0-47.0) % MCV (80.0-98.0) fL MCH (27.0-33.0) pg MCHC (31.0-35.0) g/dl RDW (11.0-16.0) % Plt Count (160-400) X10*3/uL MPV (9.4-12.3) fL Immature Gran % (Auto) (0.0-0.4) % Neut % (Auto) (45-73) % Lymph % (Auto) (20-40) % [place] % (Auto) (2-11) % Eos % (Auto) (0-4) % Baso % (Auto) (0-2) % Lymph # (Auto) (1.2-4.9) X10*3/uL [place] # (Auto) (0.1-1.2) X10*3/uL Eos # (Auto) (0.0-0.4) X10*3/uL Baso # (Auto) (0.0-0.2) X10*3/uL Abs Immat Gran (auto) (0.00-0.03) X10*3/uL Absolute Neuts (auto) (2.0-8.3) x10*3/uL Absolute Nucleated RBC (0.0-0.012) X10*3/uL Nucleated RBC % (auto) (0.0-0.2) /100WBC Sodium (135-145) mmol/L Potassium (3.3-5.1) mmol/L Chloride (96-108) mmol/L Carbon Dioxide (22-29) mmol/L Anion Gap (12-20) BUN (9-16) mg/dL Creatinine (0.5-1.4) mg/dL Estim Creat Clear Calc Estimated GFR Random Glucose (60-115) mg/dL Calcium (8.4-10.2) mg/dL Total Bilirubin (0.0-1.0) mg/dL Direct Bilirubin (0.0-0.5) mg/dL AST (5-31) U/L ALT (0-31) U/L Alkaline Phosphatase (39-117) U/L Total Creatine Kinase (26-140) U/L Troponin I High Sens (<3.5-17.0) ng/L Total Protein (6.5-8.0) g/dL Albumin (3.5-5.0) g/dL Lipase (8-78) U/L Urine Color Yellow Urine Appearance Clear Urine pH 6.0 (5.0-9.0) Ur Specific [place] <= 1.005 (1.005-1.025) Urine Protein Negative (Neg-Trace) mg/dL Urine Glucose (UA) Negative (Negative) mg/dL Urine Ketones Negative (Negative) mg/dL Urine Blood Negative (Negative) Urine Nitrite Negative (Negative) Ur Leukocyte Esterase Negative (Negative) Discharge Plan Discharge Clinical Impression: Weakness of both legs Patient Disposition: Home, Self-Care Instructions: Weakness (ED) Prescriptions: No Action levothyroxine 50 mcg tablet 50 mcg PO DAILY 90 Days Qty: 90 3RF atenolol 25 mg tablet 25 mg PO DAILY 90 Days Qty: 90 1RF alendronate [Fosamax] 70 mg tablet 70 mg PO QWEEK 90 Days Qty: 13 1RF aspirin [Adult Low Dose Aspirin] 81 mg tablet,delayed release (DR/EC) 81 mg PO DAILY Referrals: Chuck Morris MD [Primary Care Provider] -
[2023-01-10] MEDS: 0.9 % Sodium Chloride 1,000 ML 999 ML IV (10:18)
[2023-01-10 10:19] LABS: MANUAL DIFF FLAG NO
[2023-01-10 10:20] LABS: Basophils Absolute Auto 0.1 X10*3/uL (0.0-0.2); Basophils Percent Auto 1.1 % (0-2); Eosinophils Absolute Auto 0.1 X10*3/uL (0.0-0.4); Hematocrit 49.2 % (37.0-47.0); Hemoglobin 16.2 g/dl (12.0-16.0); Imm Gran Abs Auto 0.03 X10*3/uL (0.00-0.03); Imm Gran Pct Auto 0.3 % (0.0-0.4); Lymphocytes Absolute Auto 1.2 X10*3/uL (1.2-4.9); Lymphocytes Percent Auto 13.7 % (20-40); Mean Corpuscular HGB Conc 32.9 g/dl (31.0-35.0); Mean Corpuscular Hemoglobin 31.6 pg (27.0-33.0); Mean Corpuscular Volume 96.1 fL (80.0-98.0); Mean Platelet Volume 9.2 fL (9.4-12.3); Monocytes Absolute Auto 0.4 X10*3/uL (0.1-1.2); Neutrophils Percent Auto 79.9 % (45-73); Platelet Count 776 X10*3/uL (160-400); Red Blood Count 5.12 X10*6/uL (4.20-5.50); Red Cell Distribution Width 17.6 % (11.0-16.0); White Blood Count 8.8 X10*3/uL (4.8-10.8)
[2023-01-10 10:38] LABS: Alanine Aminotransferase 18 U/L (0-31); Albumin Level 4.3 g/dL (3.5-5.0); Alkaline Phosphatase 59 U/L (39-117); Anion Gap 14 (12-20); Aspartate Amino Transferase 21 U/L (5-31); Bilirubin Direct 0.1 mg/dL (0.0-0.5); Bilirubin Total 0.4 mg/dL (0.0-1.0); Blood Urea Nitrogen 13 mg/dL (9-16); Calcium 9.7 mg/dL (8.4-10.2); Carbon Dioxide 27 mmol/L (22-29); Chloride 107 mmol/L (96-108); Creatinine Clr Calc Pharmacy 44.1; Estimated Glomerular Filt Rate > 60; Glucose Random 90 mg/dL (60-115); Lipase 57 U/L (8-78); Potassium 4.5 mmol/L (3.3-5.1); Sodium 143 mmol/L (135-145); Total Protein 6.6 g/dL (6.5-8.0)
[2023-01-10 10:45] LABS: Troponin-I High Sensitivity < 2.7 ng/L (<3.5-17.0)
[2023-01-10 12:22] LABS: Appearance Urine Clear; Color Urine Yellow; Glucose Urine UA Negative (Negative); Leukocyte Esterase Urine Negative (Negative); Nitrite Urine Negative (Negative); Specific Gravity - Urine <= 1.005 (1.005-1.025); Urine Blood Negative (Negative); Urine Ketones Negative (Negative); Urine Protein Negative (Neg-Trace)
--- NOTE | 2023-01-10 14:38 | PC.NURSE ---
PT UP AND AMBULATORY IN ED, SHE WAS PROVIDED A SANDWICH AND KD JUICE, STILL ATTEMPTING TO OBTAIN TRANSPORTATION HOME.
== END 2023-01-10 15:12 | disposition home or self-care (01) ==
PROVIDERS: Emergency Provider Emergency Medicine; PCP Internal Medicine
DX: R53.1 Weakness (principal)
CPT/HCPCS: 36415; 80048; 80076; 81003; 82550; 83690; 84484; 85025; 96360; 99284

== ENCOUNTER 2023-01-14 07:01 | Outpatient (REF) | payer MEDICARE, SELFPAY ==
[2023-01-14 11:47] LABS: MANUAL DIFF FLAG NO
[2023-01-14 11:54] LABS: Basophils Absolute Auto 0.1 X10*3/uL (0.0-0.2); Basophils Percent Auto 1.1 % (0-2); Eosinophils Absolute Auto 0.2 X10*3/uL (0.0-0.4); Eosinophils Percent Auto 2.3 % (0-4); Hemoglobin 15.8 g/dl (12.0-16.0); Imm Gran Abs Auto 0.06 X10*3/uL (0.00-0.03); Imm Gran Pct Auto 0.6 % (0.0-0.4); Lymphocytes Absolute Auto 1.7 X10*3/uL (1.2-4.9); Lymphocytes Percent Auto 16.6 % (20-40); Mean Corpuscular HGB Conc 32.2 g/dl (31.0-35.0); Mean Corpuscular Hemoglobin 31.8 pg (27.0-33.0); Mean Corpuscular Volume 98.6 fL (80.0-98.0); Mean Platelet Volume 9.5 fL (9.4-12.3); Monocytes Absolute Auto 0.7 X10*3/uL (0.1-1.2); Monocytes Percent Auto 6.6 % (2-11); Neutrophils Absolute Auto 7.6 x10*3/uL (2.0-8.3); Neutrophils Percent Auto 72.8 % (45-73); Platelet Count 806 X10*3/uL (160-400); Red Blood Count 4.97 X10*6/uL (4.20-5.50); Red Cell Distribution Width 17.6 % (11.0-16.0); White Blood Count 10.5 X10*3/uL (4.8-10.8)
[2023-01-14 12:51] LABS: Alanine Aminotransferase 14 U/L (0-31); Albumin Level 4.2 g/dL (3.5-5.0); Alkaline Phosphatase 59 U/L (39-117); Anion Gap 11 (12-20); Aspartate Amino Transferase 18 U/L (5-31); Bilirubin Total 0.4 mg/dL (0.0-1.0); Blood Urea Nitrogen 16 mg/dL (9-16); Carbon Dioxide 28 mmol/L (22-29); Chloride 105 mmol/L (96-108); Estimated Glomerular Filt Rate > 60; Glucose Random 77 mg/dL (60-115); Potassium 5.3 mmol/L (3.3-5.1); Sodium 139 mmol/L (135-145); Total Protein 6.5 g/dL (6.5-8.0)
[2023-01-14 13:20] LABS: TSH reflex Free T4 2.32 uIU/mL (0.32-4.0)
== END 2023-01-14 07:02 | disposition home or self-care (01) ==
LOC: HO.HMGCLDS 07:01
PROVIDERS: PCP Internal Medicine; Visit Provider Internal Medicine
DX: E03.8 Other specified hypothyroidism (principal); D47.3 Essential (hemorrhagic) thrombocythemia; I10 Essential (primary) hypertension
CPT/HCPCS: 36415; 80053; 84443; 85025

== ENCOUNTER 2023-03-09 11:56 | Outpatient (REF) | payer MEDICARE, SELFPAY | END 2023-03-09 11:57 | disposition home or self-care (01) | LOC: HO.LAB 11:56 | PROVIDERS: PCP Internal Medicine; Visit Provider Internal Medicine | DX: R29.898 Other symptoms and signs involving the musculoskeletal system (principal) | CPT/HCPCS: 36415; 82085; 82550; 85652 ==

== ENCOUNTER 2023-04-07 09:42 | Outpatient (AMB) | payer MEDICARE, SELFPAY ==
[2023-04-07 09:44] VITALS: BP 138/72; PULSE 84; O2SAT 95; BMI 21.5
--- NOTE | 2023-04-07 09:44 | A.OFFPC_ITS ---
Vital Signs 04/07/23 09:44 Height 5 ft 3 in Weight 121 lb 2 oz BMI 21.5 BP 138/72 Blood Pressure Location Rt brachial Position Sitting Pulse 84 Pulse Source Pulse Oximeter Pulse Oximetry (%) 95 Oxygen Delivery Method Room Air Intake Visit Reasons: Knee Pain Allergies No Known Allergies Allergy (Unknown, Verified 04/07/23 09:45) Medication List - Last Reconciled 04/07/23 by Chuck Morris MD alendronate (Fosamax) 70 mg PO QWEEK 90 days aspirin (Adult Low Dose Aspirin) 81 mg PO DAILY atenolol 25 mg PO DAILY 90 days levothyroxine 50 mcg PO DAILY 90 days Tobacco use date assessed: 04/07/23 Fall risk assessment: No Falls in past year Last assessed Fall Risk: 04/07/23 Dental Screening Dental Screen Date: 04/07/23 Did you have a dental visit in the last 12 months?: No Did you have a dental problem in the last 6 months where you did not have access to dental care?: No Was dental information given to patient?: No HPI Knee Pain HPI Details Patient is 82-year-old female came in today with a chief complaint of knee stiffness and soreness mostly in the morning but also during the day Patient has not taken any medication except aspirin. On examination there is no swelling of knee range of motion is intact I am ordering x-rays of her knee Patient is to start taking Aleve [id number] b.i.d. with food as needed. [facility] Medical History Bleeding hemorrhoids Family History Father Family hx of colon cancer Social History Household Members: Spouse Housing: Condominium Are you a primary memory care program resident to a significant other at home: No Do you presently have visiting nurse or other home services: No Alcohol intake: current Alcohol intake frequency: 0-2 drinks per day Alcohol type: hard liquor Patient Tobacco Use Status: Never used Tobacco e-Cigarette/Vaping Use: Never Used Second Hand Smoke Exposure: No service: No Current occupational status: retired Cognitive needs: No Hearing needs: No Vision needs: Yes Questionnaire PHQ-9 Over the last 2 weeks, how often have you been bothered by any of the following problems? 1. Little interest or pleasure in doing things: not at all 2. Feeling down, depressed, or hopeless: not at all 3. Trouble falling or staying asleep, or sleeping too much: several days 4. Feeling tired or having little energy: not at all 5. Poor appetite or overeating: not at all 6. Feeling bad about yourself - or that you are a failure or have let yourself or your family down: not at all 7. Trouble concentrating on things, such as reading the newspaper or watching television: not at all 8. Moving or speaking so slowly that other people could have noticed. Or the opposite - being so fidgety or restless that you have been moving around a lot more than usual: not at all 9. Thoughts that you would be better off or of hurting yourself in some way: not at all Total score: 1 Depression Screening Interpretation: Negative 41593 - PHQ-9 Billing: Yes Source: Developed by Drs. Saleem Stein, Paola Pool, Meek Bocanegra and colleagues, with an educational madhavi from [employer]. Thrive Questionnaire Date Thrive assessed: 04/07/23 I am a: Patient What is your living situation today?: I have a steady place to live Within the past 12 months, did the food you bought not last and you didn't have the money to get more?: Never true Within the past 12 months, did you worry whether your food would run out before you got money to buy more?: Never true Do you have trouble paying for medicines?: No Do you have trouble getting transportation to medical appointments?: No Do you have trouble paying your heating and electricity bill?: No Do you have trouble taking care of your child, family member or friend?: No Do you have trouble with day-to-day activities such as bathing, preparing meals, shopping, managing finances, etc.?: No Are you currently unemployed and looking for a job?: No Are you interested in more education?: No AUDIT C Alcohol Use Questionnaire (AUDIT-C) 1. How often do you have a drink containing alcohol?: Never 3. How often do you have six or more drinks on one occasion?: Never Total Score: 0 Score Reviewed/Action Taken: Yes OMI-7 AMB Questionnaire OMI-7 Date OMI - 7 assessed: 04/07/23 Feeling nervous, anxious, or on edge: 1 = Several days Not being able to stop or control worryin = Several days Worrying too much about different things: 1 = Several days Trouble relaxin = Not at all Being so restless that it is hard to sit still: 0 = Not at all Becoming easily annoyed or irritable: 0 = Not at all Feeling afraid as if something awful might happen: 0 = Not at all Total OMI-7 score (0-4 normal; 5-9 mild; 10-14 moderate; 15-21 severe): 3 Source: Developed by Drs. Saleem Stein, Paola Pool, Meek Bocanegra and colleagues, with an educational madhavi from [employer]. OMI-7 Assessment Billing OMI-7 Assessment Tool: OMI-7 Assessment 33583 Review of Systems Const All systems reviewed & are unremarkable except as noted in HPI and below Physical exam (Primary Care) Vital Signs: Last Vital Signs Pulse 84 04/07/23 09:44 BP 138/72 04/07/23 09:44 Pulse Ox 95 04/07/23 09:44 Oxygen Delivery Method Room Air 04/07/23 09:44 BMI result Body Mass Index 21.5 Tobacco/Smoking Status: Tobacco use Status Tobacco use date assessed 04/07/23 04/07/23 09:45 Patient Tobacco Use Status Never used Tobacco 04/07/23 09:45 e-Cigarette/Vaping Use Never Used 04/07/23 09:45 PHQ-9: PHQ-9 Score PHQ-9: Total score 1 04/07/23 10:04 Depression Screening Interpretation: Negative Thrive Assessment: Date of Thrive Assessment Date Thrive assessed 04/07/23 04/07/23 10:04 Const General: no acute distress Orientation/consciousness: patient oriented x3 Eyes General: appearance normal, both eyes and all related structures Resp Effort & Inspection: normal respiratory effort and able to speak in complete sentences Auscultation: clear to auscultation bilaterally Neuro General: patient oriented x3 Extrem Other: Range of motion knee intact no swelling no pain with examination Psych Mental Status: mental status grossly normal Assessment and Plan Assessment & Plan (1) Knee joint stiffness, bilateral: Code(s): M25.661 - Stiffness of right knee, not elsewhere classified; M25.662 - Stiffness of left knee, not elsewhere classified (2) Bilateral knee pain: Code(s): M25.561 - Pain in right knee; M25.562 - Pain in left knee Plan Patient is 82-year-old female came in today with a chief complaint of knee stiffness and soreness mostly in the morning but also during the day Patient has not taken any medication except aspirin. Having difficulty climbing stairs now On examination there is no swelling of knee range of motion is intact I am ordering x-rays of her knee Patient is to start taking Aleve qojo-itt-zawgzwy b.i.d. with food as needed. Does not want to see orthopedic at this time Orders: Orders XR knee LT 2V Today M25.561 - Pain in right knee, M25.562 - Pain in left knee, M25.661 - Stiffness of right knee, not elsewhere classified, M25.662 - Stiffness of left knee, not elsewhere classified XR knee RT 2V Today M25.561 - Pain in right knee, M25.562 - Pain in left knee, M25.661 - Stiffness of right knee, not elsewhere classified, M25.662 - Stiffness of left knee, not elsewhere classified Coding Level of Care Code Est Pt Level 3 (17848) Diagnoses Knee joint stiffness, bilateral M25.661; M25.662 Bilateral knee pain M25.561; M25.562 Additional Codes OMI-7 Assessment Billing - OMI-7 Assessment Tool: OMI-7 Assessment [id number] ([id number])
== END 2023-04-07 11:03 | disposition home or self-care (01) ==
PROVIDERS: PCP Internal Medicine; Visit Provider Internal Medicine
DX: M25.661 Stiffness of right knee, not elsewhere classified (principal); M25.662 Stiffness of left knee, not elsewhere classified; M25.561 Pain in right knee; M25.562 Pain in left knee
CPT/HCPCS: 99213

== ENCOUNTER 2023-04-07 10:04 | Outpatient (REF) | payer MEDICARE, SELFPAY ==
--- NOTE | ~2023-04-07 | XR_ITS ---
EXAMINATION: XR KNEE, RIGHT CLINICAL INFORMATION: Pain. COMPARISON: None TECHNIQUE: AP and lateral views of the right knee. FINDINGS: Bones and soft tissues are normal. No fracture or joint effusion. Alignment is anatomic. Joint spaces are well maintained. No abnormal soft tissue calcification. XR/XR knee RT 2V IMPRESSION: Normal knee. EXAMINATION: XR KNEE, LEFT CLINICAL INFORMATION: Pain. COMPARISON: None TECHNIQUE: AP and lateral views of the left knee. FINDINGS: Bones and soft tissues are normal. No fracture or joint effusion. Alignment is anatomic. Joint spaces are well maintained. No abnormal soft tissue calcification. IMPRESSION: Normal knee.
--- NOTE | ~2023-04-07 | XR_ITS ---
EXAMINATION: XR KNEE, RIGHT CLINICAL INFORMATION: Pain. COMPARISON: None TECHNIQUE: AP and lateral views of the right knee. FINDINGS: Bones and soft tissues are normal. No fracture or joint effusion. Alignment is anatomic. Joint spaces are well maintained. No abnormal soft tissue calcification. XR/XR knee LT 2V IMPRESSION: Normal knee. EXAMINATION: XR KNEE, LEFT CLINICAL INFORMATION: Pain. COMPARISON: None TECHNIQUE: AP and lateral views of the left knee. FINDINGS: Bones and soft tissues are normal. No fracture or joint effusion. Alignment is anatomic. Joint spaces are well maintained. No abnormal soft tissue calcification. IMPRESSION: Normal knee.
== END 2023-04-07 10:05 | disposition home or self-care (01) ==
LOC: HO.HMGCX 10:04
PROVIDERS: PCP Internal Medicine; Visit Provider Internal Medicine
DX: M25.561 Pain in right knee (principal); M25.562 Pain in left knee; M25.661 Stiffness of right knee, not elsewhere classified; M25.662 Stiffness of left knee, not elsewhere classified
CPT/HCPCS: 73560

== ENCOUNTER 2023-05-19 09:56 | Outpatient (REF) | payer MEDICARE, SELFPAY ==
[2023-05-19 10:17] LABS: MANUAL DIFF FLAG NO
[2023-05-19 10:18] LABS: Basophils Absolute Auto 0.1 X10*3/uL (0.0-0.2); Eosinophils Absolute Auto 0.2 X10*3/uL (0.0-0.4); Eosinophils Percent Auto 1.7 % (0-4); Hematocrit 50.3 % (37.0-47.0); Hemoglobin 16.4 g/dl (12.0-16.0); Imm Gran Abs Auto 0.04 X10*3/uL (0.00-0.03); Imm Gran Pct Auto 0.4 % (0.0-0.4); Lymphocytes Absolute Auto 1.5 X10*3/uL (1.2-4.9); Lymphocytes Percent Auto 15.4 % (20-40); Mean Corpuscular HGB Conc 32.6 g/dl (31.0-35.0); Mean Corpuscular Hemoglobin 32.7 pg (27.0-33.0); Mean Corpuscular Volume 100.4 fL (80.0-98.0); Mean Platelet Volume 9.3 fL (9.4-12.3); Monocytes Absolute Auto 0.5 X10*3/uL (0.1-1.2); Monocytes Percent Auto 5.4 % (2-11); Neutrophils Absolute Auto 7.3 x10*3/uL (2.0-8.3); Neutrophils Percent Auto 76.1 % (45-73); Platelet Count 747 X10*3/uL (160-400); Red Blood Count 5.01 X10*6/uL (4.20-5.50); White Blood Count 9.6 X10*3/uL (4.8-10.8)
[2023-05-19 10:37] LABS: Alanine Aminotransferase 21 U/L (0-31); Albumin Level 4.4 g/dL (3.5-5.0); Alkaline Phosphatase 60 U/L (39-117); Anion Gap 13 (12-20); Aspartate Amino Transferase 27 U/L (5-31); Bilirubin Total 0.4 mg/dL (0.0-1.0); Blood Urea Nitrogen 11 mg/dL (9-16); Calcium 9.9 mg/dL (8.4-10.2); Carbon Dioxide 26 mmol/L (22-29); Chloride 106 mmol/L (96-108); Estimated Glomerular Filt Rate > 60; Glucose Random 96 mg/dL (60-115); Potassium 4.5 mmol/L (3.3-5.1); Sodium 140 mmol/L (135-145)
== END 2023-05-19 09:57 | disposition home or self-care (01) ==
LOC: HO.BBR 09:56
PROVIDERS: PCP Internal Medicine; Visit Provider Internal Medicine Medical Oncology
DX: D47.3 Essential (hemorrhagic) thrombocythemia (principal)
CPT/HCPCS: 36415; 80053; 85025

== ENCOUNTER 2023-08-05 13:17 | Outpatient (AMB) | payer MEDICARE, SELFPAY ==
--- NOTE | 2023-08-05 13:19 | MHC.PC.OV ---
Vital Signs 08/05/23 13:20 Height 5 ft 3 in Weight 120 lb BMI 21.3 BP 132/70 Blood Pressure Location Rt brachial Position Sitting Pulse 81 Pulse Source Pulse Oximeter Pulse Oximetry (%) 97 Oxygen Delivery Method Room Air Intake Visit Reasons: Follow up BP Allergies No Known Allergies Allergy (Unknown, Verified 08/05/23 13:19) Medication List - Last Reconciled 08/05/23 by Chuck Morris MD alendronate (Fosamax) 70 mg PO QWEEK 90 days aspirin (Adult Low Dose Aspirin) 81 mg PO DAILY atenolol 25 mg PO DAILY 90 days levothyroxine 50 mcg PO DAILY 90 days Tobacco use date assessed: 08/05/23 Fall risk assessment: No Falls in past year Last assessed Fall Risk: 08/05/23 HPI Follow up BP HPI Details Patient is a 82-year-old female came in today for blood pressure follow-up She is taking atenolol 50 mg patient is tolerating medication Osteoporosis: Patient is on Fosamax 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 Patient says that he is 89 years old and she does not want him to suffer anymore, by taking so many medications. She will return in 4 months for follow-up [facility] Medical History Bleeding hemorrhoids Family History Father Family hx of colon cancer Social History Household Members: Spouse Housing: Condominium Are you a primary customer care team coach to a significant other at home: No Do you presently have visiting nurse or other home services: No Alcohol intake: current Alcohol intake frequency: 0-2 drinks per day Alcohol type: hard liquor Patient Tobacco Use Status: Never used Tobacco e-Cigarette/Vaping Use: Never Used Second Hand Smoke Exposure: No service: No Current occupational status: retired Cognitive needs: No Hearing needs: No Vision needs: Yes Questionnaire Thrive Questionnaire Date Thrive assessed: 04/07/23 AUDIT C Alcohol Use Questionnaire (AUDIT-C) 1. How often do you have a drink containing alcohol?: 2-4 times a month 2. How many drinks containing alcohol do you have on a typical day when you are drinking?: 1 or 2 3. How often do you have six or more drinks on one occasion?: Never Total Score: 2 OMI-7 AMB Questionnaire OMI-7 Date OMI - 7 assessed: 04/07/23 Source: Developed by Drs. Saleem Stein, Paola Pool, Meek Bocanegra and colleagues, with an educational madhavi from [employer]. Review of Systems Const Denies chills and Denies fever(s) ENT Denies epistaxis and Denies nasal discharge Card Denies chest pain Resp Denies chest congestion, Denies cough and Denies hemoptysis GI Denies diarrhea and Denies nausea Skin/Breast Denies rash Neuro Reports no additional complaints Psych Reports no additional complaints Endo Reports no additional complaints Physical exam (Primary Care) Vital Signs: Last Vital Signs Pulse 81 08/05/23 13:20 BP 132/70 08/05/23 13:20 Pulse Ox 97 08/05/23 13:20 Oxygen Delivery Method Room Air 08/05/23 13:20 BMI result Body Mass Index 21.3 Tobacco/Smoking Status: Tobacco use Status Tobacco use date assessed 08/05/23 08/05/23 13:21 Patient Tobacco Use Status Never used Tobacco 08/05/23 13:21 e-Cigarette/Vaping Use Never Used 08/05/23 13:21 Thrive Assessment: Date of Thrive Assessment Date Thrive assessed 04/07/23 08/05/23 13:21 Const General: cooperative, comfortable and no acute distress Orientation/consciousness: patient oriented x3 HENMT Head: Yes normocephalic Eyes General: appearance normal, both eyes and all related structures Neck Neck: Yes supple Resp Effort & Inspection: normal respiratory effort, no cough and no stridor Cardio Rhythm: regular rhythm Heart sounds: S1 normal heart sound present and S2 normal heart sound present Skin General skin exam: turgor normal Neuro General: patient oriented x3, tone normal and moves all extremities Extrem Right lower extremity: no edema Left lower extremity: no edema Assessment and Plan Assessment & Plan (1) Hypertension, essential: Code(s): I10 - Essential (primary) hypertension (2) Other specified hypothyroidism: Code(s): E03.8 - Other specified hypothyroidism (3) Essential thrombocytosis: Code(s): D47.3 - Essential (hemorrhagic) thrombocythemia (4) Osteoporosis: Code(s): M81.0 - Age-related osteoporosis without current pathological fracture Qualifiers: Osteoporosis type: age-related Presence of current pathological fracture: without current pathological fracture Qualified Code(s): M81.0 - Age-related osteoporosis without current pathological fracture (5) Knee joint stiffness, bilateral: Code(s): M25.661 - Stiffness of right knee, not elsewhere classified; M25.662 - Stiffness of left knee, not elsewhere classified (6) Peripheral neuropathy: Code(s): G62.9 - Polyneuropathy, unspecified Qualifiers: Peripheral neuropathy type: idiopathic neuropathy, unspecified Qualified Code(s): G60.9 - Hereditary and idiopathic neuropathy, unspecified Plan Patient is a 82-year-old female came in today for blood pressure follow-up She is taking atenolol 50 mg patient is tolerating medication Osteoporosis: Patient is on Fosamax 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 Patient says that he is 89 years old and she does not want him to suffer anymore, by taking so many medications. She will return in 4 months for follow-up Orders: Orders Comprehensive Met. Panel Today D47.3 - Essential (hemorrhagic) thrombocythemia, E03.8 - Other specified hypothyroidism, I10 - Essential (primary) hypertension, M25.661 - Stiffness of right knee, not elsewhere classified, M25.662 - Stiffness of left knee, not elsewhere classified, M81.0 - Age-related osteoporosis without current pathological fracture TSH reflex Free T4 Today D47.3 - Essential (hemorrhagic) thrombocythemia, E03.8 - Other specified hypothyroidism, I10 - Essential (primary) hypertension, M25.661 - Stiffness of right knee, not elsewhere classified, M25.662 - Stiffness of left knee, not elsewhere classified, M81.0 - Age-related osteoporosis without current pathological fracture Complete Blood Count Auto Diff Today D47.3 - Essential (hemorrhagic) thrombocythemia, E03.8 - Other specified hypothyroidism, I10 - Essential (primary) hypertension, M25.661 - Stiffness of right knee, not elsewhere classified, M25.662 - Stiffness of left knee, not elsewhere classified, M81.0 - Age-related osteoporosis without current pathological fracture Coding Level of Care Code Est Pt Level 4 (52066) Diagnoses Hypertension, essential I10 Other specified hypothyroidism E03.8 Essential thrombocytosis D47.3 Age-related osteoporosis without current pathological fracture M81.0 Osteoporosis type: age-related Presence of current pathological fracture: without current pathological fracture Knee joint stiffness, bilateral M25.661; M25.662 Idiopathic peripheral neuropathy G60.9 Peripheral neuropathy type: idiopathic neuropathy, unspecified
[2023-08-05 13:20] VITALS: BP 132/70; PULSE 81; O2SAT 97; BMI 21.3
== END 2023-08-05 13:45 | disposition home or self-care (01) ==
PROVIDERS: PCP Internal Medicine; Visit Provider Internal Medicine
DX: I10 Essential (primary) hypertension (principal); E03.8 Other specified hypothyroidism; D47.3 Essential (hemorrhagic) thrombocythemia; M81.0 Age-related osteoporosis without current pathological fracture; M25.661 Stiffness of right knee, not elsewhere classified; M25.662 Stiffness of left knee, not elsewhere classified; G60.9 Hereditary and idiopathic neuropathy, unspecified
CPT/HCPCS: 99214

== ENCOUNTER 2023-08-05 13:45 | Outpatient (REF) | payer MEDICARE, SELFPAY ==
[2023-08-05 16:05] LABS: MANUAL DIFF FLAG NO
[2023-08-05 16:24] LABS: Basophils Absolute Auto 0.1 X10*3/uL (0.0-0.2); Basophils Percent Auto 1.4 % (0-2); Eosinophils Absolute Auto 0.2 X10*3/uL (0.0-0.4); Eosinophils Percent Auto 1.9 % (0-4); Hematocrit 50.3 % (37.0-47.0); Imm Gran Abs Auto 0.04 X10*3/uL (0.00-0.03); Imm Gran Pct Auto 0.4 % (0.0-0.4); Lymphocytes Absolute Auto 1.6 X10*3/uL (1.2-4.9); Lymphocytes Percent Auto 17.1 % (20-40); Mean Corpuscular HGB Conc 31.8 g/dl (31.0-35.0); Mean Corpuscular Hemoglobin 32.1 pg (27.0-33.0); Mean Corpuscular Volume 100.8 fL (80.0-98.0); Mean Platelet Volume 9.8 fL (9.4-12.3); Monocytes Absolute Auto 0.6 X10*3/uL (0.1-1.2); Monocytes Percent Auto 6.4 % (2-11); Neutrophils Absolute Auto 6.8 x10*3/uL (2.0-8.3); Neutrophils Percent Auto 72.8 % (45-73); Platelet Count 813 X10*3/uL (160-400); Red Blood Count 4.99 X10*6/uL (4.20-5.50); Red Cell Distribution Width 16.4 % (11.0-16.0); White Blood Count 9.4 X10*3/uL (4.8-10.8)
[2023-08-05 16:41] LABS: Alanine Aminotransferase 21 U/L (0-31); Albumin Level 4.3 g/dL (3.5-5.0); Alkaline Phosphatase 55 U/L (39-117); Anion Gap 12 (12-20); Aspartate Amino Transferase 28 U/L (5-31); Bilirubin Total 0.3 mg/dL (0.0-1.0); Blood Urea Nitrogen 19 mg/dL (9-16); Calcium 9.9 mg/dL (8.4-10.2); Carbon Dioxide 29 mmol/L (22-29); Chloride 103 mmol/L (96-108); Estimated Glomerular Filt Rate > 60; Glucose Random 103 mg/dL (60-115); Potassium 4.1 mmol/L (3.3-5.1); Sodium 140 mmol/L (135-145); Total Protein 6.8 g/dL (6.5-8.0)
== END 2023-08-05 13:46 | disposition home or self-care (01) ==
LOC: HO.HMGCLDS 13:45
PROVIDERS: PCP Internal Medicine; Visit Provider Internal Medicine
DX: I10 Essential (primary) hypertension (principal); E03.8 Other specified hypothyroidism; D47.3 Essential (hemorrhagic) thrombocythemia; M81.0 Age-related osteoporosis without current pathological fracture; M25.661 Stiffness of right knee, not elsewhere classified; M25.662 Stiffness of left knee, not elsewhere classified
CPT/HCPCS: 36415; 80053; 84443; 85025

== ENCOUNTER 2023-08-13 09:19 | Outpatient (AMB) | payer MEDICARE, SELFPAY ==
--- NOTE | 2023-08-13 09:24 | A.OFFPC_ITS ---
Intake Visit Reasons: Discuss Labs ~ Allergies No Known Allergies Allergy (Unknown, Verified 08/13/23 09:24) Medication List - Last Reconciled 08/13/23 by Chuck Morris MD alendronate (Fosamax) 70 mg PO QWEEK 90 days aspirin (Adult Low Dose Aspirin) 81 mg PO DAILY atenolol 25 mg PO DAILY 90 days levothyroxine 50 mcg PO DAILY 90 days Tobacco use date assessed: 08/13/23 Fall risk assessment: No Falls in past year Last assessed Fall Risk: 08/13/23 Dental Screening Dental Screen Date: 08/13/23 Did you have a dental visit in the last 12 months?: Yes Did you have a dental problem in the last 6 months where you did not have access to dental care?: No Was dental information given to patient?: Patient has dentist HPI Discuss Labs ~ HPI Details Patient is 82-year-old female this is a telemedicine conference Patient wanted to go over her lab reports Patient have a history of thrombocytosis, she is seeing him a tolerating as well Her platelets range between 700-800. She is taking baby aspirin daily Rest of her labs are stable, kidney function liver functions are within normal limit, sugar is within normal limit An TSH is within normal limit, patient is on levothyroxine 50 mcg PFSH Medical History Bleeding hemorrhoids Family History Father Family hx of colon cancer Social History Household Members: Spouse [facility] Are you a primary customer care manager to a significant other at home: No Do you presently have visiting nurse or other home services: No Alcohol intake: current Alcohol intake frequency: 0-2 drinks per day Alcohol ty pe: hard liquor Patient Tobacco Use Status: Never used Tobacco e-Cigarette/Vaping Use: Never Used Second Hand Smoke Exposure: No service: No Current occupational status: retired Cognitive needs: No Hearing needs: No Vision needs: Yes Questionnaire Thrive Questionnaire Date Thrive assessed: 04/07/23 AUDIT C Alcohol Use Questionnaire (AUDIT-C) 1. How often do you have a drink containing alcohol?: 2-4 times a month 2. How many drinks containing alcohol do you have on a typical day when you are drinking?: 1 or 2 3. How often do you have six or more drinks on one occasion?: Never Total Score: 2 Score Reviewed/Action Taken: Yes OMI-7 AMB Questionnaire OMI-7 Date OMI - 7 assessed: 04/07/23 Source: Developed by Drs. Saleem Stein, Paola Pool, Meek Bocanegra and colleagues, with an educational madhavi from [employer]. Review of Systems Const Denies chills and Denies fever(s) ENT Denies epistaxis and Denies nasal discharge Card Denies chest pain Resp Denies chest congestion, Denies cough and Denies hemoptysis GI Denies diarrhea and Denies nausea Skin/Breast Denies rash Neuro Reports no additional complaints Psych Reports no additional complaints Endo Reports no additional complaints Physical exam (Primary Care) Tobacco/Smoking Status: Tobacco use Status Tobacco use date assessed 08/13/23 08/13/23 09:25 Patient Tobacco Use Status Never used Tobacco 08/13/23 09:25 e-Cigarette/Vaping Use Never Used 08/13/23 09:25 Thrive Assessment: Date of Thrive Assessment Date Thrive assessed 04/07/23 08/13/23 09:25 Telehealth Telehealth Location of provider rendering services: practice address Location of patient: address on file Patient Identification confirmed using: Name, : Yes Telehealth method: voice only Patient verbally consented to treatment: Yes Patient verbally consented to billing insurance company: Yes Patient informed of any privacy concerns related to visit: Yes Assessment and Plan Assessment & Plan (1) Other specified hypothyroidism: Code(s): E03.8 - Other specified hypothyroidism (2) Essential thrombocytosis: Code(s): D47.3 - Essential (hemorrhagic) thrombocythemia Plan Patient is 82-year-old female this is a telemedicine conference Patient wanted to go over her lab reports Patient have a history of thrombocytosis, she is seeing him a tolerating as well Her platelets range between 700-800. She is taking baby aspirin daily Rest of her labs are stable, kidney function liver functions are within normal limit, sugar is within normal limit An TSH is within normal limit, patient is on levothyroxine 50 mcg Coding Level of Care Code Tele Est Pt Level 3 (60441) Diagnoses Other specified hypothyroidism E03.8 Essential thrombocytosis D47.3 Time Spent (min) 14 Comment 9 with patient and 5 charting
== END 2023-08-13 10:11 | disposition home or self-care (01) ==
LOC: HO.HMGC 09:19
PROVIDERS: PCP Internal Medicine; Visit Provider Internal Medicine
DX: E03.8 Other specified hypothyroidism (principal); D47.3 Essential (hemorrhagic) thrombocythemia
CPT/HCPCS: 99442

== ENCOUNTER 2023-09-08 10:56 | Outpatient (AMB) | payer MEDICARE, SELFPAY ==
[2023-09-08 11:05] VITALS: BP 146/92; PULSE 87; O2SAT 97; BMI 21.3
--- NOTE | 2023-09-08 11:05 | A.OFFPC_ITS ---
Vital Signs 3 09/08/23 11:05 Height 5 ft 3 in Weight 120 lb 2 oz BMI 21.3 BP 146/92 H Blood Pressure Location Lt brachial Position Sitting Pulse 87 Pulse Source Pulse Oximeter Pulse Oximetry (%) 97 Oxygen Delivery Method Room Air Intake Visit Reasons: Left breast rash Allergies No Known Allergies Allergy (Unknown, Verified 09/08/23 11:06) Medication List - Last Reconciled 09/08/23 by Chuck Morris MD alendronate (Fosamax) 70 mg PO QWEEK 90 days aspirin (Adult Low Dose Aspirin) 81 mg PO DAILY atenolol 25 mg PO DAILY 90 days levothyroxine 50 mcg PO DAILY 90 days Tobacco use date assessed: 09/08/23 Fall risk assessment: No Falls in past year Last assessed Fall Risk: 09/08/23 Dental Screening Dental Screen Date: 09/08/23 Did you have a dental visit in the last 12 months?: No Did you have a dental problem in the last 6 months where you did not have access to dental care?: No Was dental information given to patient?: Patient declined HPI Left breast rash 2 HPI0 Details Patient is 82-year-old female came in today to be evaluated for development of rash left breast nipple Patient says that she noticed it couple of days ago she used hydrocortisone cream last night and it seems to be getting better Patient got worried and booked mammogram for her which is coming up in October On examination she does not have any lumps there is no nipple discharge there is no pain She has small scab at the tip of nipple, there is no axillary l large lymph nodes Recommendations: Continue with hydrocortisone cream 2 times a day for a week or 10 days If it does not get better patient is to get back to me. [facility] Medical History Bleeding hemorrhoids Family History Father Family hx of colon cancer Social History Household Members: Spouse Housing: Condominium Are you a primary adult care manager to a significant other at home: No Do you presently have visiting nurse or other home services: No Alcohol intake: current Alcohol intake frequency: 0-2 drinks per day Alcohol type: hard liquor Patient Tobacco Use Status: Never used Tobacco e-Cigarette/Vaping Use: Never Used Second Hand Smoke Exposure: No service: No Current occupational status: retired Cognitive needs: No Hearing needs: No Vision needs: Yes Questionnaire PHQ-9 Over the last 2 weeks, how often have you been bothered by any of the following problems? 1. Little interest or pleasure in doing things: not at all 2. Feeling down, depressed, or hopeless: not at all 3. Trouble falling or staying asleep, or sleeping too much: several days 4. Feeling tired or having little energy: not at all 5. Poor appetite or overeating: not at all 6. Feeling bad about yourself - or that you are a failure or have let yourself or your family down: not at all 7. Trouble concentrating on things, such as reading the newspaper or watching television: not at all 8. Moving or speaking so slowly that other people could have noticed. Or the opposite - being so fidgety or restless that you have been moving around a lot more than usual: not at all 9. Thoughts that you would be better off or of hurting yourself in some way: not at all Total score: 1 Depression Screening Interpretation: Negative Depression Screening Done: Yes 11153 - PHQ-9 Billing: Yes Source: Developed by Drs. Saleem Stein, Paola Pool, Meek Bocanegra and colleagues, with an educational madhavi from [employer]. Thrive Questionnaire Date Thrive assessed: 09/08/23 I am a: Patient What is your living situation today?: I have a steady place to live Within the past 12 months, did the food you bought not last and you didn't have the money to get more?: Never true Within the past 12 months, did you worry whether your food would run out before you got money to buy more?: Never true Do you have trouble paying for medicines?: No Do you have trouble getting transportation to medical appointments?: No Do you have trouble paying your heating and electricity bill?: No Do you have trouble taking care of your child, family member or friend?: No Do you have trouble with day-to-day activities such as bathing, preparing meals, shopping, managing finances, etc.?: No Are you currently unemployed and looking for a job?: No Are you interested in more education?: No Please select the resources that you would like help with: None Currently or been in a relationship where the following occur: no concerns reported AUDIT C Alcohol Use Questionnaire (AUDIT-C) 1. How often do you have a drink containing alcohol?: 2-4 times a month 2. How many drinks containing alcohol do you have on a typical day when you are drinking?: 1 or 2 3. How often do you have six or more drinks on one occasion?: Never Total Score: 2 Score Reviewed/Action Taken: Yes OMI-7 AMB Questionnaire OMI-7 Date OMI - 7 assessed: 09/08/23 Feeling nervous, anxious, or on edge: 0 = Not at all Not being able to stop or control worryin = Not at all Worrying too much about different things: 0 = Not at all Trouble relaxin = Not at all Being so restless that it is hard to sit still: 0 = Not at all Becoming easily annoyed or irritable: 0 = Not at all Feeling afraid as if something awful might happen: 0 = Not at all Total OMI-7 score (0-4 normal; 5-9 mild; 10-14 moderate; 15-21 severe): 0 Source: Developed by Drs. Saleem Stein, Paola Pool, Meek Bocanegra and colleagues, with an educational madhavi from [employer]. OMI-7 Assessment Billing OMI-7 Assessment Tool: OMI-7 Assessment 96999 Review of Systems Const All systems reviewed & are unremarkable except as noted in HPI and below Physical exam (Primary Care) Vital Signs: Last Vital Signs Pulse 87 09/08/23 11:05 BP 146/92 H 09/08/23 11:05 Pulse Ox 97 09/08/23 11:05 Oxygen Delivery Method Room Air 09/08/23 11:05 BMI result Body Mass Index 21.3 Tobacco/Smoking Status: Tobacco use Status Tobacco use date assessed 09/08/23 09/08/23 11:09 Patient Tobacco Use Status Never used Tobacco 09/08/23 11:09 e-Cigarette/Vaping Use Never Used 09/08/23 11:09 PHQ-9: PHQ-9 Score PHQ-9: Total score 1 09/08/23 11:09 Depression Screening Interpretation: Negative Thrive Assessment: Date of Thrive Assessment Date Thrive assessed 09/08/23 09/08/23 11:09 Currently or been in a relationship where the following occur: no concerns reported Const General: no acute distress Orientation/consciousness: patient oriented x3 Eyes General: appearance normal, both eyes and all related structures Chest Chest/axillae images: 2 1. Small amount of scab at the tip of the nipple without any pain nipple discharge, there is no lymph nodes in axilla, no lumps on breast examination Resp Effort & Inspection: normal respiratory effort and able to speak in complete sentences Auscultation: clear to auscultation bilaterally Neuro General: patient oriented x3 Psych Mental Status: mental status grossly normal Assessment and Plan Assessment & Plan (1) Disorder of nipple of breast: Code(s): N64.9 - Disorder of breast, unspecified Plan Patient is 82-year-old female came in today to be evaluated for development of rash left breast nipple Patient says that she noticed it couple of days ago she used hydrocortisone cream last night and it seems to be getting better Patient got worried and booked mammogram for her which is coming up in October On examination she does not have any lumps there is no nipple discharge there is no pain She has small scab at the tip of nipple, there is no axillary l large lymph nodes Recommendations: Continue with hydrocortisone cream 2 times a day for a week or 10 days If it does not get better patient is to get back to me. Coding Level of Care Code Est Pt Level 3 (45351) Diagnoses Disorder of nipple of breast N64.9 Additional Codes OMI-7 Assessment Billing - OMI-7 Assessment Tool: OMI-7 Assessment 31323 ([id number])
== END 2023-09-08 12:50 | disposition home or self-care (01) ==
PROVIDERS: PCP Internal Medicine; Visit Provider Internal Medicine
DX: N64.9 Disorder of breast, unspecified (principal)
CPT/HCPCS: 99213

== ENCOUNTER 2023-09-22 13:38 | Outpatient (REF) | payer MEDICARE, SELFPAY | END 2023-09-22 13:39 | disposition home or self-care (01) | LOC: HO.BBR 13:38 | PROVIDERS: Visit Provider Internal Medicine Medical Oncology | DX: D75.1 Secondary polycythemia (principal) | CPT/HCPCS: 99195 ==

== ENCOUNTER 2023-12-09 10:52 | Outpatient (AMB) | payer MEDICARE, SELFPAY ==
[2023-12-09 10:54] VITALS: BP 136/80; PULSE 77; O2SAT 96; BMI 21.2
--- NOTE | 2023-12-09 10:54 | A.OFFVIS_ITS ---
Intake Vital Signs 12/09/23 10:54 Height 5 ft 3 in Weight 119 lb 8 oz BMI 21.2 BP 136/80 Blood Pressure Location Rt brachial Position Sitting Pulse 77 Pulse Source Pulse Oximeter Pulse Oximetry (%) 96 Oxygen Delivery Method Room Air Intake Visit Reasons: SWV [id number] Allergies No Known Allergies Allergy (Unknown, Verified 12/09/23 10:59) Medication List - Last Reconciled 12/09/23 by Chuck Morris MD alendronate (Fosamax) 70 mg PO QWEEK 90 days aspirin (Adult Low Dose Aspirin) 81 mg PO DAILY atenolol 25 mg PO DAILY 90 days levothyroxine 50 mcg PO DAILY 90 days HPI SWV G0439 HPI Details Patient is 83-year-old female who 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 It feels like burning She is requesting a script for gabapentin, I have sent 100 mg capsule patient is to start taking 1 at night She also have a thrombocytosis and is currently under treatment of Hematology Patient 22 did blood in August and is due to 28 it again I have ordered labs to follow-up on that She is also on thyroid medication and is due for TSH Blood pressure is stable patient is to continue atenolol 25 mg daily HPI Comments History of Present Illness Details AWV Medical/social history reviewed Past medical history reviewed [place]uma of care / care team list updated Surgical/ hospitalization history reviewed Current medications including OTC and supplements reviewed Family history reviewed Tobacco controlled form updated Alcohol use form updated Illicit drug use in social history reviewed Current diagnosis of depression ?screening updated Appropriate PHQ 2/PHQ-9 completed . Vital signs reviewed Alcohol tobacco drug use reviewed and discussed . MMSE completed . ? Fall risk: ?Assessed Fall history: ?None Have you had any falls with injury in the past year?? No Have you had 2 or more falls in the past year?? No Fall risk assessment completed Home safety discussed with the patient Functional ability assessed and discussed and documented Activities of daily living reviewed and appropriate actions taken . HRA filled out by the patient and reviewed by provider and scanned . Appropriate written screening schedule established . Any health advise needed provided . Advance care planning discussed with the patient , necessary paperwork filled Examination IPPE/AWE: Balance off Romberg failed Tandem walk failed walk-in turn intact rise from sit to stand intact . ?Hearing ?whisper test pass . Medication list reviewed, patient is stable on medications All other providers patient is seeing discussed and noted . [facility] Medical History Bleeding hemorrhoids Family History Father Family hx of colon cancer Social History Household Members: Spouse Housing: Condominium Are you a primary care transition coordinator to a significant other at home: No Do you presently have visiting nurse or other home services: No Alcohol intake: current Alcohol intake frequency: 0-2 drinks per day Alcohol type: hard liquor Patient Tobacco Use Status: Never used Tobacco e-Cigarette/Vaping Use: Never Used Second Hand Smoke Exposure: No service: No Current occupational status: retired Cognitive needs: No Hearing needs: No Vision needs: Yes Questionnaire Medicare Wellness Checkup What is your age?: 82 or older What gender do you identify with?: female During the past 4 weeks, how much have you been bothered by emotional problems such as feeling anxious, depressed, irritable, sad or downhearted, and blue?: moderately During the past 4 weeks, has your physical & emotional health limited your social activities with family, friends, neighbors, or groups?: slightly During the past 4 weeks, how much bodily pain have you generally had?: moderate pain During the past 4 weeks, was someone available to help you if you needed & wanted help?: yes, a little During the past 4 weeks, what was the hardest physical activity you could do for at least 2 minutes?: light Can you get to places out of walking distance without help? (For eg., can you travel alone on buses, taxis or drive your car?): Yes Can you go shopping for groceries or clothes without someone's help?: Yes Can you prepare your own meals?: Yes Can you do your housework without help?: Yes Because of any health problems, do you need the help of another person with your personal care needs such as eating, bathing, dressing or getting around the house?: Yes Can you handle your own money without help?: Yes During the past 4 weeks, how would you rate your health in general?: good During the past 4 weeks how have things been going for you?: pretty well Do you always fasten your seat belt when you are in a car?: yes, usually During past 4 weeks, have you been bothered by the following: never: Falling or dizzy when standing up, Sexual problems?, Trouble eating well?, Teeth or denture problems?, Problems using the telephone? and Tiredness or fatigue? Have you fallen 2 or more times in the past year?: No Are you afraid of falling?: No Are you a smoker?: no During the past 4 weeks, how many drinks of wine, beer, or other alcoholic beverages did you have?: no alcohol at all Do you exercise for about 20 minutes 3 or more times a week?: no, I usually do not exercise this much Have you been given information to help with the following?: yes: Keeping track of your medications? and no: Hazards in your house that might hurt you? How often do you have trouble taking medicines the way you have been told to take them?: I always take medicine as prescribed How confident are you that you can control & manage most of your health problems?: somewhat confident What is your race?: White Mini Mental State Exam (MMSE) Orientation What is the (year) (season) (date) (day) (month)?: year, season, date, day and month Where are we (state) (county) (town or city) (hospital) (floor)?: state, county, town or city, hospital/clinic and floor Score Score: 10 Activity of Daily Living Bathing - sponge bath, tub bath or shower: receives no assistance (gets in/out by self, if usual bathing means Dressing - getting clothes from closets & drawers, including inner/outer garments & fasteners.: gets clothes & gets completely dressed without help Toileting - going to the 'toilet room' for urine/bowel elimination & cleaning self/arranging clothes: goes to toilet room, cleans self, arranges clothes without help Transfer: moves in & out of bed and chair without help (may use support object) Continence: controls urination/bowel movements completely by self Feeding: feeds self without help Total Score: 0 Information obtained from: patient Using telephone: independent Traveling: independent Shopping: independent Preparing meals: independent Housework: independent Taking medicine: independent Managing money: independent PHQ-9 Over the last 2 weeks, how often have you been bothered by any of the following problems? 1. Little interest or pleasure in doing things: several days 2. Feeling down, depressed, or hopeless: not at all 3. Trouble falling or staying asleep, or sleeping too much: not at all 4. Feeling tired or having little energy: several days 5. Poor appetite or overeating: several days 6. Feeling bad about yourself - or that you are a failure or have let yourself or your family down: not at all 7. Trouble concentrating on things, such as reading the newspaper or watching television: not at all 8. Moving or speaking so slowly that other people could have noticed. Or the opposite - being so fidgety or restless that you have been moving around a lot more than usual: several days 9. Thoughts that you would be better off or of hurting yourself in some way: not at all Total score: 4 Depression Screening Interpretation: Negative Depression Screening Done: Yes 76461 - PHQ-9 Billing: Yes Source: Developed by Drs. Saleem Stein, Paola Pool, Meek Bocanegra and colleagues, with an educational madhavi from [employer]. Review of Systems Const Denies chills and Denies fever(s) ENT Denies epistaxis and Denies nasal discharge Card Denies chest pain Resp Denies chest congestion, Denies cough and Denies hemoptysis GI Denies diarrhea and Denies nausea Skin/Breast Denies rash Neuro Reports no additional complaints Psych Reports no additional complaints Endo Reports no additional complaints Physical Exam Vital Signs: Last Vital Signs Pulse 77 12/09/23 10:54 BP 136/80 12/09/23 10:54 Pulse Ox 96 12/09/23 10:54 Oxygen Delivery Method Room Air 12/09/23 10:54 BMI result Body Mass Index 21.2 Const General: cooperative, comfortable and no acute distress Orientation/consciousness: patient oriented x3 HEENT Head: Yes normocephalic Eyes General: appearance normal, both eyes and all related structures Neck Other: Supple Neck: Yes supple Resp Effort & Inspection: normal respiratory effort, no cough and no stridor Cardio Rhythm: regular rhythm Heart sounds: S1 normal heart sound present and S2 normal heart sound present Skin General skin exam: turgor normal Neuro Other: Motor sensory intact General: patient oriented x3, tone normal and moves all extremities Extrem Other: No lower extremity swelling. Right lower extremity: no edema Left lower extremity: no edema Psych Other: Normal effect, speech clear Assessment & Plan Assessment & Plan (1) Medicare annual wellness visit, subsequent: Code(s): Z00.00 - Encounter for general adult medical examination without abnormal findings (2) Hypertension, essential: Code(s): I10 - Essential (primary) hypertension (3) Other specified hypothyroidism: Code(s): E03.8 - Other specified hypothyroidism (4) Osteoporosis: Code(s): M81.0 - Age-related osteoporosis without current pathological fracture Qualifiers: Osteoporosis type: age-related Presence of current pathological fracture: without current pathological fracture Qualified Code(s): M81.0 - Age- related osteoporosis without current pathological fracture (5) Essential thrombocytosis: Code(s): D47.3 - Essential (hemorrhagic) thrombocythemia (6) Anxiety, generalized: Code(s): F41.1 - Generalized anxiety disorder (7) Neuropathy: Code(s): G62.9 - Polyneuropathy, unspecified Plan Patient is 83-year-old female who 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 It feels like burning She is requesting a script for gabapentin, I have sent 100 mg capsule patient is to start taking 1 at night She also have a thrombocytosis and is currently under treatment of Hematology Patient 22 did blood in August and is due to 28 it again I have ordered labs to follow-up on that She is also on thyroid medication and is due for TSH Suffers from osteoporosis and is taking Fosamax Anxiety stable Blood pressure is stable patient is to continue atenolol 25 mg daily Orders: Orders Complete Blood Count Auto Diff Today D47.3 - Essential (hemorrhagic) thrombocythemia, E03.8 - Other specified hypothyroidism, F41.1 - Generalized anxiety disorder, G62.9 - Polyneuropathy, unspecified, I10 - Essential (primary) hypertension, M81.0 - Age-related osteoporosis without current pathological fracture TSH reflex Free T4 Today D47.3 - Essential (hemorrhagic) thrombocythemia, E03.8 - Other specified hypothyroidism, F41.1 - Generalized anxiety disorder, G62.9 - Polyneuropathy, unspecified, I10 - Essential (primary) hypertension, M81.0 - Age-related osteoporosis without current pathological fracture Medications: New gabapentin 100 mg PO BEDTIME 30 caps 0RF Neuropathy Quality Reporting (2019) Depression/Bipolar (159/160/161/177) PHQ-9: Total score: 4 Coding Level of Care Code Medicare Subsequent (G0439) Est Pt Level 3 (65736) Diagnoses Medicare annual wellness visit, subsequent Z00.00 Hypertension, essential I10 Other specified hypothyroidism E03.8 Age-related osteoporosis without current pathological fracture M81.0 Osteoporosis type: age-related Presence of current pathological fracture: without current pathological fracture Essential thrombocytosis D47.3 Anxiety, generalized F41.1 Neuropathy G62.9 CPT Codes Advance Care Planning - Time spent: 1-15 minutes, not on file ([id number]) Advance Care Planning Forms completed: Health Care Proxy and MOLST Time spent: 1-15 minutes, not on file
== END 2023-12-09 11:25 | disposition home or self-care (01) ==
PROVIDERS: PCP Internal Medicine; Visit Provider Internal Medicine
DX: Z00.00 Encounter for general adult medical examination without abnormal findings (principal); D47.3 Essential (hemorrhagic) thrombocythemia; I10 Essential (primary) hypertension; M81.0 Age-related osteoporosis without current pathological fracture; E03.8 Other specified hypothyroidism; F41.1 Generalized anxiety disorder; G62.9 Polyneuropathy, unspecified
CPT/HCPCS: 1124F; 99213; G0439

== ENCOUNTER 2023-12-09 11:26 | Outpatient (REF) | payer MEDICARE, SELFPAY ==
[2023-12-09 13:36] LABS: MANUAL DIFF FLAG NO
[2023-12-09 13:53] LABS: Basophils Absolute Auto 0.2 X10*3/uL (0.0-0.2); Basophils Percent Auto 1.4 % (0-2); Eosinophils Absolute Auto 0.1 X10*3/uL (0.0-0.4); Eosinophils Percent Auto 1.2 % (0-4); Hematocrit 52.1 % (37.0-47.0); Hemoglobin 17.2 g/dl (12.0-16.0); Imm Gran Abs Auto 0.05 X10*3/uL (0.00-0.03); Imm Gran Pct Auto 0.5 % (0.0-0.4); Lymphocytes Absolute Auto 1.5 X10*3/uL (1.2-4.9); Mean Corpuscular Hemoglobin 32.8 pg (27.0-33.0); Mean Corpuscular Volume 99.2 fL (80.0-98.0); Mean Platelet Volume 9.7 fL (9.4-12.3); Monocytes Absolute Auto 0.6 X10*3/uL (0.1-1.2); Monocytes Percent Auto 5.7 % (2-11); Neutrophils Absolute Auto 8.4 x10*3/uL (2.0-8.3); Neutrophils Percent Auto 77.2 % (45-73); Platelet Count 868 X10*3/uL (160-400); Red Blood Count 5.25 X10*6/uL (4.20-5.50); Red Cell Distribution Width 15.9 % (11.0-16.0); White Blood Count 10.9 X10*3/uL (4.8-10.8)
[2023-12-09 14:36] LABS: TSH reflex Free T4 1.34 uIU/mL (0.32-4.0)
== END 2023-12-09 11:27 | disposition home or self-care (01) ==
LOC: HO.HMGCLDS 11:26
PROVIDERS: PCP Internal Medicine; Visit Provider Internal Medicine
DX: D47.3 Essential (hemorrhagic) thrombocythemia (principal); M81.0 Age-related osteoporosis without current pathological fracture; E03.8 Other specified hypothyroidism; I10 Essential (primary) hypertension; F41.1 Generalized anxiety disorder; G62.9 Polyneuropathy, unspecified
CPT/HCPCS: 36415; 84443; 85025

== ENCOUNTER 2024-01-29 14:30 | Outpatient (AMB) | payer MEDICARE, SELFPAY ==
[2024-01-29 14:32] VITALS: BP 162/94; PULSE 86; O2SAT 92; BMI 21.3
--- NOTE | 2024-01-29 14:32 | MHC.PC.OV ---
Vital Signs 01/29/24 14:32 Height 5 ft 3 in Weight 120 lb 6 oz BMI 21.3 BP 162/94 H Blood Pressure Location Lt brachial Position Sitting Pulse 86 Pulse Source Pulse Oximeter Pulse Oximetry (%) 92 Oxygen Delivery Method Room Air Intake Visit Reasons: ?Gabapentin issues Allergies No Known Allergies Allergy (Unknown, Verified 01/29/24 14:32) Medication List - Last Reconciled 01/29/24 by Chuck Morris MD alendronate (Fosamax) 70 mg PO QWEEK 90 days aspirin (Adult Low Dose Aspirin) 81 mg PO DAILY atenolol 25 mg PO DAILY 90 days gabapentin 100 mg PO BEDTIME levothyroxine 50 mcg PO DAILY 90 days Tobacco use date assessed: 01/29/24 Fall risk assessment: 1 Fall in past year Last assessed Fall Risk: 01/29/24 Dental Screening Dental Screen Date: 01/29/24 Did you have a dental visit in the last 12 months?: No Did you have a dental problem in the last 6 months where you did not have access to dental care?: No Was dental information given to patient?: Patient has dentist HPI ?Gabapentin issues HPI Details Patient is 83-year-old female with peripheral neuropathy Taking gabapentin 100 mg in the morning which has helped her with her burning sensations in her feet Patient also has thrombocytosis last labs done in November showed platelet count of 868 She is established with Hematology [facility] She will have labs done today. Last night she tried to get up from bed in the middle of the night and had to sit down she does not remember for how long. But she deny loss of consciousness She is taking aspirin regularly. There is questionable history of TIA I have sent message to Hematology Department to book a follow-up appointment for the patient She does not have any neurological deficit at this time. [facility] Medical History Bleeding hemorrhoids Family History Father Family hx of colon cancer Social History Household Members: Spouse Housing: Condominium Are you a primary manager wound care to a significant other at home: No Do you presently have visiting nurse or other home services: No Alcohol intake: current Alcohol intake frequency: 0-2 drinks per day Alcohol type: hard liquor Patient Tobacco Use Status: Never used Tobacco e-Cigarette/Vaping Use: Never Used Second Hand Smoke Exposure: No service: No Current occupational status: retired Cognitive needs: No Hearing needs: No Vision needs: Yes Questionnaire Thrive Questionnaire Date Thrive assessed: 09/08/23 AUDIT C Alcohol Use Questionnaire (AUDIT-C) 1. How often do you have a drink containing alcohol?: 2-4 times a month 2. How many drinks containing alcohol do you have on a typical day when you are drinking?: 1 or 2 3. How often do you have six or more drinks on one occasion?: Never Total Score: 2 Score Reviewed/Action Taken: Yes OMI-7 AMB Questionnaire OMI-7 Date OMI - 7 assessed: 09/08/23 Source: Developed by Drs. Saleem Stein, Paola Pool, Meek Bocanegra and colleagues, with an educational madhavi from [employer]. Review of Systems Const Denies chills and Denies fever(s) ENT Denies epistaxis and Denies nasal discharge Card Denies chest pain Resp Denies chest congestion, Denies cough and Denies hemoptysis GI Denies diarrhea and Denies nausea Skin/Breast Denies rash Neuro Reports no additional complaints Psych Reports no additional complaints Endo Reports no additional complaints Physical exam (Primary Care) Vital Signs: Last Vital Signs Pulse 86 01/29/24 14:32 BP 162/94 H 01/29/24 14:32 Pulse Ox 92 01/29/24 14:32 Oxygen Delivery Method Room Air 01/29/24 14:32 BMI result Body Mass Index 21.3 Tobacco/Smoking Status: Tobacco use Status Tobacco use date assessed 01/29/24 01/29/24 14:39 Patient Tobacco Use Status Never used Tobacco 01/29/24 14:34 e-Cigarette/Vaping Use Never Used 01/29/24 14:34 Thrive Assessment: Date of Thrive Assessment Date Thrive assessed 09/08/23 01/29/24 14:34 Const General: cooperative, comfortable and no acute distress Orientation/consciousness: patient oriented x3 HENMT Head: Yes normocephalic Eyes General: appearance normal, both eyes and all related structures Neck Neck: Yes supple Resp Effort & Inspection: normal respiratory effort, no cough and no stridor Cardio Rhythm: regular rhythm Heart sounds: S1 normal heart sound present and S2 normal heart sound present Skin General skin exam: turgor normal Neuro General: patient oriented x3, tone normal and moves all extremities Extrem Right lower extremity: no edema Left lower extremity: no edema Assessment and Plan Assessment & Plan (1) Essential thrombocytosis: Code(s): D47.3 - Essential (hemorrhagic) thrombocythemia (2) Hypertension, essential: Code(s): I10 - Essential (primary) hypertension Plan Patient is 83-year-old female with peripheral neuropathy Taking gabapentin 100 mg in the morning which has helped her with her burning sensations in her feet Patient also has thrombocytosis last labs done in November showed platelet count of 868 She is established with Hematology [facility] She will have labs done today. Last night she tried to get up from bed in the middle of the night and had to sit down she does not remember for how long. But she deny loss of consciousness She is taking aspirin regularly. There is questionable history of TIA I have sent message to Hematology Department to book a follow-up appointment for the patient She does not have any neurological deficit at this time. Her blood pressure is elevated today, patient says that she is nervous Usually it is within reasonable range with atenolol 25 mg. Coding Level of Care Code Est Pt Level 3 (76727) Diagnoses Essential thrombocytosis D47.3 Hypertension, essential I10
== END 2024-01-29 15:01 | disposition home or self-care (01) ==
PROVIDERS: PCP Internal Medicine; Visit Provider Internal Medicine
DX: D47.3 Essential (hemorrhagic) thrombocythemia (principal); I10 Essential (primary) hypertension
CPT/HCPCS: 99213

== ENCOUNTER 2024-01-30 16:03 | Emergency (ER) | payer MEDICARE, SELFPAY ==
[2024-01-30 16:10] VITALS: BP 199/85; PULSE 84; RESP 18; TEMP 37; O2SAT 98; BMI 23.2
--- NOTE | 2024-01-30 16:12 | ED_ITS ---
HPI - General Adult General Chief complaint: General Medical Stated complaint: ?Allergic reaction to new meds Time Seen by Provider: 01/30/24 16:17 Source: patient Mode of arrival: ambulatory Limitations: no limitations History of Present Illness ED Provider: Shauna Moreno PA-C HPI narrative: 83-year-old female with a history of neuropathy, recently started on gabapentin, history of thrombocytosis who follows with meredith Chapa who presents to the ER for evaluation of bilateral foot redness that started 2 days ago, and has been getting worse. She is worried it may be an allergic reaction to her gabapentin which she started 15 days ago. She reports the medication has been working well for her neuropathy. She denies any swelling, warmth, pain in her feet she just noticed that they have been getting more red lately. She reports the bottom of her feet are purple in color at times. Patient also reports falling 2 days ago, hitting her right side on furniture. She was seen in Urgent Care for this. She reports some ongoing soreness in her right lower ribs but no exquisite pain. no sob or chest pain. not on blood thinners, no head strike. MD complaint: painless red feet Onset (ago): day(s) (2) Location: left, right and lower extremity Radiation: non-radiation Pain Consistency: constant Relieving factors: none Exacerbating factors: none Associated symptoms: denies other symptoms Treatments prior to arrival: none Related Data Home Medications ?Medication ?Instructions ?Recorded ?Confirmed aspirin 81 mg tablet,delayed 81 mg PO DAILY 09/25/20 01/29/24 release (Adult Low Dose Aspirin) Previous Rx's ?Medication ?Instructions ?Recorded levothyroxine 50 mcg tablet 50 mcg PO DAILY 90 days #90 tabs 05/18/23 atenolol 25 mg tablet 25 mg PO DAILY 90 days #90 tabs 12/08/23 gabapentin 100 mg capsule 100 mg PO BEDTIME Neuropathy #30 12/09/23 caps alendronate 70 mg tablet (Fosamax) 70 mg PO QWEEK 90 days #13 tabs 12/18/23 Allergies Allergy/AdvReac Type Severity Reaction Status Date / Time No Known Allergies Allergy Unknown Verified 01/30/24 16:14 Review of Systems Review of Systems: Yes all other systems are reviewed and are negative PMFSH Past Medical History Medical History Bleeding hemorrhoids Family History Family History Father Family hx of colon cancer Social History Social History Household Members: Spouse Housing: [facility] Are you a primary child care team lead to a significant other at home: No Do you presently have visiting nurse or other home services: No Alcohol intake: current Alcohol intake frequency: 0-2 drinks per day Alcohol type: hard liquor Patient Tobacco Use Status: Never used Tobacco e-Cigarette/Vaping Use: Never Used Second Hand Smoke Exposure: No Advance Directives: No Advance Directives Information Provided: No Do you have a plan to hurt others: No Plan service: No Current occupational status: retired Cognitive needs: No Hearing needs: No Vision needs: Yes Physical Exam ED Vital Signs: Vital Signs - 24 hr 01/30/24 16:10 01/30/24 16:39 Temperature 98.6 F 98.6 F Pulse Rate 84 84 Respiratory Rate 18 18 Blood Pressure 199/85 H 199/85 H Pulse Oximetry 98 98 Oxygen Delivery Method Room Air Room Air BMI result Body Mass Index 23.2 Appearance: Alert. Oriented X3. No acute distress. HEENT: normal inspection CVS: Normal heart rate and rhythm. Pulses normal. Respiratory: No respiratory distress. Skin: Skin warm and dry. Normal skin color. Normal skin turgor. No rashes. Extremities: erythema of the tops of the feet bilaterally, nontender without any swelling or warmth. Feet are cool but well perfused with 2+ DP and PT pulses. No lower extremity swelling, no calf tenderness. Erythema is blanchable but with slow cap refill. Neuro: Oriented X 3. No motor deficit. No sensory deficit. Steady gait. Medical Decision Making Medical Decision Making MDM Narrative: 83-year-old female with history of hypertension, neuropathy, thrombocytosis on aspirin who presents to the ER for evaluation of redness to both of her feet for the last 2 days. Concerned that this may be a gabapentin allergy although this medication was started 15 days ago. No evidence of hives on examination. No evidence of infection, no warmth or swelling. Unclear etiology however does not appear to be acutely related to gabapentin or infectious process. Could be due to her thrombocytosis. She is on aspirin. She has strong pulses in her feet. At this time no emergent workup is needed, she will follow-up with her primary care doctor. She is seeing Dr. Cardona soon for her thrombocytosis. Return precautions were discussed and patient is stable for discharge home Blood pressure markedly elevated that she states frequently happens when she is anxious and nervous. She denies any chest pain, headache, vision change. Differential Diagnosis Differential Diagnoses: The differential diagnosis associated with the presentation includes Cellulitis, vasculitis, PVD, sunburn, less likely allergic reaction to gabapentin External Record Review External record reviewed: Outpatient record and Prior outpatient labs Tests considered The following testing was considered but not selected: Lab workup considered however not indicated today Chronic Conditions Patient?s care impacted by: Hypertension Critical Care Time Critical Care Time Critical Care Time: No Discharge Plan Discharge Clinical Impression: Foot erythema Patient Disposition: Home, Self-Care Additional Instructions: Your examination today was not consistent with an allergic reaction. There is no evidence of infection or swelling. It is safe to continue your gabapentin. Follow-up with your primary care doctor. Monitor for signs of infection including warmth, increased redness, pain, swelling, fever. If you develop new or worsening symptoms call 911 or come back to the ER for further evaluation. Prescriptions: No Action levothyroxine 50 mcg tablet 50 mcg PO DAILY 90 Days Qty: 90 3RF atenolol 25 mg tablet 25 mg PO DAILY 90 Days Qty: 90 0RF alendronate [Fosamax] 70 mg tablet 70 mg PO QWEEK 90 Days Qty: 13 1RF aspirin [Adult Low Dose Aspirin] 81 mg tablet,delayed release (DR/EC) 81 mg PO DAILY gabapentin 100 mg capsule 100 mg PO BEDTIME Qty: 30 0RF Interventions: ED Discharge Assessment Last Done: 01/30/24 16:39 Discharge Date/Time: 01/30/24 16:40 Print Language: Hungarian
[2024-01-30 16:39] VITALS: BP 199/85; PULSE 84; RESP 18; TEMP 37; O2SAT 98
== END 2024-01-30 16:40 | disposition home or self-care (01) ==
PROVIDERS: Emergency Provider Emergency Medicine; PCP Internal Medicine
DX: L53.9 Erythematous condition, unspecified (principal)
CPT/HCPCS: 99282

== ENCOUNTER 2024-02-15 08:46 | Outpatient (REF) | payer MEDICARE, SELFPAY ==
[2024-02-15 09:05] LABS: MANUAL DIFF FLAG NO
[2024-02-15 09:09] LABS: Basophils Absolute Auto 0.2 X10*3/uL (0.0-0.2); Basophils Percent Auto 1.6 % (0-2); Eosinophils Absolute Auto 0.2 X10*3/uL (0.0-0.4); Eosinophils Percent Auto 1.6 % (0-4); Hematocrit 53.6 % (37.0-47.0); Hemoglobin 17.9 g/dl (12.0-16.0); Imm Gran Abs Auto 0.04 X10*3/uL (0.00-0.03); Imm Gran Pct Auto 0.4 % (0.0-0.4); Lymphocytes Absolute Auto 1.4 X10*3/uL (1.2-4.9); Lymphocytes Percent Auto 13.1 % (20-40); Mean Corpuscular HGB Conc 33.4 g/dl (31.0-35.0); Mean Corpuscular Hemoglobin 32.6 pg (27.0-33.0); Mean Corpuscular Volume 97.6 fL (80.0-98.0); Mean Platelet Volume 9.3 fL (9.4-12.3); Monocytes Absolute Auto 0.6 X10*3/uL (0.1-1.2); Monocytes Percent Auto 5.5 % (2-11); Neutrophils Percent Auto 77.8 % (45-73); Platelet Count 727 X10*3/uL (160-400); Red Blood Count 5.49 X10*6/uL (4.20-5.50); Red Cell Distribution Width 17.7 % (11.0-16.0); White Blood Count 10.3 X10*3/uL (4.8-10.8)
[2024-02-15 09:27] LABS: Alanine Aminotransferase 23 U/L (0-31); Albumin Level 4.5 g/dL (3.5-5.0); Alkaline Phosphatase 77 U/L (39-117); Anion Gap 15 (12-20); Aspartate Amino Transferase 26 U/L (5-31); Bilirubin Total 0.4 mg/dL (0.0-1.0); Blood Urea Nitrogen 13 mg/dL (9-16); Carbon Dioxide 26 mmol/L (22-29); Chloride 106 mmol/L (96-108); Estimated Glomerular Filt Rate > 60; Glucose Random 99 mg/dL (60-115); Potassium 4.6 mmol/L (3.3-5.1); Sodium 142 mmol/L (135-145); Total Protein 7.2 g/dL (6.5-8.0)
== END 2024-02-15 08:47 | disposition home or self-care (01) ==
LOC: HO.BBR 08:46
PROVIDERS: PCP Internal Medicine; Visit Provider Internal Medicine Medical Oncology
DX: D75.1 Secondary polycythemia (principal); D47.3 Essential (hemorrhagic) thrombocythemia
CPT/HCPCS: 36415; 80053; 85014; 85018; 85025; 99195

== ENCOUNTER 2024-02-19 10:29 | Outpatient (AMB) | payer MEDICARE, SELFPAY ==
[2024-02-19 10:35] VITALS: BP 156/102; PULSE 86; O2SAT 97; BMI 21.3
--- NOTE | 2024-02-19 10:35 | A.OFFPC_ITS ---
Vital Signs 02/19/24 10:35 Height 5 ft 3 in Weight 120 lb BMI 21.3 BP 156/102 H Blood Pressure Location Rt brachial Position Sitting Pulse 86 Pulse Source Pulse Oximeter Pulse Oximetry (%) 97 Oxygen Delivery Method Room Air Intake Visit Reasons: requesting anxiety medication Allergies No Known Allergies Allergy (Unknown, Verified 02/19/24 10:35) Medication List - Last Reconciled 02/19/24 by Chuck Morris MD alendronate (Fosamax) 70 mg PO QWEEK 90 days aspirin (Adult Low Dose Aspirin) 81 mg PO DAILY atenolol 25 mg PO DAILY 90 days gabapentin 100 mg PO BEDTIME levothyroxine 50 mcg PO DAILY 90 days Tobacco use date assessed: 02/19/24 Fall risk assessment: No Falls in past year Last assessed Fall Risk: 02/19/24 Dental Screening Dental Screen Date: 02/19/24 Did you have a dental visit in the last 12 months?: Yes Did you have a dental problem in the last 6 months where you did not have access to dental care?: No Was dental information given to patient?: Patient has dentist HPI requesting anxiety medication HPI Details Patient is 83-year-old female with a history of anxiety but taking no medications Patient says that her blood pressure goes up when she is feeling anxious offer it She would like to take medication only to be taken as needed She is fine at home it is only during office visits she feels anxious Patient have thrombocytosis, and was in Hematology office recently and blood pressure was 200 systolic She is on atenolol 25 mg which keeps her blood pressure controlled at home I have sent lorazepam 0.5 mg tablet, patient was instructed to take only half a tablet at 1st and see if she feels better If not then she can take full tablet. Patient was also advised not to drive while taking this medication Side effect of medication reviewed with the patient This medication is Habit forming and may cause Psychological dependence, It can cause drowsiness, dizziness, cognitive impairment , slowing of reflexes along with some other side effect I have sent 14 tablets of lorazepam 0.5 mg HPI Comments 2 History of Present Illness Details This is a longitudinal relationship between me and the patient. Ongoing care provided, patient was provided time to ask questions [facility] Medical History Bleeding hemorrhoids Family History Father Family hx of colon cancer Social History Household Members: Spouse [facility] Are you a primary primary care nurse to a significant other at home: No Do you presently have visiting nurse or other home services: No Alcohol intake: current Alcohol intake frequency: 0-2 drinks per day Alcohol type: hard liquor Patient Tobacco Use Status: Never used Tobacco e-Cigarette/Vaping Use: Never Used Second Hand Smoke Exposure: No service: No Current occupational status: retired Cognitive needs: No Hearing needs: No Vision needs: Yes Questionnaire Thrive Questionnaire Date Thrive assessed: 09/08/23 OMI-7 AMB Questionnaire OMI-7 Date OMI - 7 assessed: 02/19/24 Feeling nervous, anxious, or on edge: 0 = Not at all Not being able to stop or control worryin = Not at all Worrying too much about different things: 0 = Not at all Trouble relaxin = Not at all Being so restless that it is hard to sit still: 0 = Not at all Becoming easily annoyed or irritable: 0 = Not at all Feeling afraid as if something awful might happen: 0 = Not at all Total OMI-7 score (0-4 normal; 5-9 mild; 10-14 moderate; 15-21 severe): 0 Source: Developed by Drs. Saleem Stein, Paola Pool, Meek Bocanegra and colleagues, with an educational madhavi from [employer]. OMI-7 Assessment Billing OMI-7 Assessment Tool: OMI-7 Assessment 78596 Review of Systems Const Denies chills and Denies fever(s) ENT Denies epistaxis and Denies nasal discharge Card Denies chest pain Resp Denies chest congestion, Denies cough and Denies hemoptysis GI Denies diarrhea and Denies nausea Skin/Breast Denies rash Neuro Reports no additional complaints Psych Reports no additional complaints Endo Reports no additional complaints Physical exam (Primary Care) Vital Signs: Last Vital Signs Pulse 86 02/19/24 10:35 BP 156/102 H 02/19/24 10:35 Pulse Ox 97 02/19/24 10:35 Oxygen Delivery Method Room Air 02/19/24 10:35 BMI result Body Mass Index 21.3 Tobacco/Smoking Status: Tobacco use Status Tobacco use date assessed 02/19/24 02/19/24 10:36 Patient Tobacco Use Status Never used Tobacco 02/19/24 10:36 e-Cigarette/Vaping Use Never Used 02/19/24 10:36 Thrive Assessment: Date of Thrive Assessment Date Thrive assessed 09/08/23 02/19/24 10:36 Const General: cooperative, comfortable and no acute distress Orientation/consciousness: patient oriented x3 HENMT Head: Yes normocephalic Eyes General: appearance normal, both eyes and all related structures Neck Neck: Yes supple Resp Effort & Inspection: normal respiratory effort, no cough and no stridor Cardio Rhythm: regular rhythm Heart sounds: S1 normal heart sound present and S2 normal heart sound present Skin General skin exam: turgor normal Neuro General: patient oriented x3, tone normal and moves all extremities Extrem Right lower extremity: no edema Left lower extremity: no edema Assessment and Plan Assessment & Plan (1) Anxiety, generalized: Code(s): F41.1 - Generalized anxiety disorder (2) Hypertension, essential: Code(s): I10 - Essential (primary) hypertension (3) Elevated blood pressure reading: Code(s): R03.0 - Elevated blood-pressure reading, without diagnosis of hypertension Plan Patient is 83-year-old female with a history of anxiety but taking no medications Patient says that her blood pressure goes up when she is feeling anxious offer it She would like to take medication only to be taken as needed She is fine at home it is only during office visits she feels anxious Patient have thrombocytosis, and was in Hematology office recently and blood pressure was 200 systolic She is on atenolol 25 mg which keeps her blood pressure controlled at home I have sent lorazepam 0.5 mg tablet, patient was instructed to take only half a tablet at 1st and see if she feels better If not then she can take full tablet. Patient was also advised not to drive while taking this medication Side effect of medication reviewed with the patient This medication is Habit forming and may cause Psychological dependence, It can cause drowsiness, dizziness, cognitive impairment , slowing of reflexes along with some other side effect I have sent 14 tablets of lorazepam 0.5 mg Medications: New lorazepam 0.5 mg PO DAILY PRN 14 tabs 0RF anxiety Coding Level of Care Code Est Pt Level 3 (17192) Complex EM visit Add On G2211 Diagnoses Anxiety, generalized F41.1 Hypertension, essential I10 Elevated blood pressure reading R03.0 Additional Codes OMI-7 Assessment Billing - OMI-7 Assessment Tool: OMI-7 Assessment 87660 ([id number])
== END 2024-02-19 15:42 | disposition home or self-care (01) ==
PROVIDERS: PCP Internal Medicine; Visit Provider Internal Medicine
DX: I10 Essential (primary) hypertension (principal); F41.1 Generalized anxiety disorder; R03.0 Elevated blood-pressure reading, without diagnosis of hypertension
CPT/HCPCS: 99213; G2211

== ENCOUNTER 2024-02-22 09:52 | Outpatient (REF) | payer MEDICARE, SELFPAY | END 2024-02-22 09:53 | disposition home or self-care (01) | LOC: HO.BBR 09:52 | PROVIDERS: PCP Internal Medicine; Visit Provider Internal Medicine Medical Oncology | DX: D75.1 Secondary polycythemia (principal) | CPT/HCPCS: 85014; 85018; 99195 ==

== ENCOUNTER 2024-03-02 08:52 | Emergency (ER) | payer MEDICARE, SELFPAY ==
[2024-03-02 08:58] VITALS: BP 116/70; PULSE 82; O2SAT 97
[2024-03-02 09:02] VITALS: BP 147/69; PULSE 83; RESP 18; TEMP 36.9; O2SAT 97; BMI 22.7
--- NOTE | 2024-03-02 09:04 | ECG_ITS ---
Test Reason : WEAKNESS Blood Pressure : / mmHG Vent. Rate : 072 BPM Atrial Rate : 072 BPM P-R Int : 166 ms QRS Dur : 080 ms QT Int : 380 ms P-R-T Axes : 072 017 063 degrees QTc Int : 416 ms Normal sinus rhythm Normal ECG When compared with ECG of 13-MAR-2007 20:38, No significant change was found Referred By: Ernie Wilkes Electronically Signed By:ARDEN SOLER
[2024-03-02 09:29] LABS: MANUAL DIFF FLAG NO
[2024-03-02 09:31] LABS: Basophils Absolute Auto 0.1 X10*3/uL (0.0-0.2); Basophils Percent Auto 1.4 % (0-2); Eosinophils Absolute Auto 0.2 X10*3/uL (0.0-0.4); Eosinophils Percent Auto 2.1 % (0-4); Hematocrit 52.8 % (37.0-47.0); Hemoglobin 17.3 g/dl (12.0-16.0); Imm Gran Abs Auto 0.05 X10*3/uL (0.00-0.03); Imm Gran Pct Auto 0.5 % (0.0-0.4); Lymphocytes Absolute Auto 1.3 X10*3/uL (1.2-4.9); Lymphocytes Percent Auto 14.5 % (20-40); Mean Corpuscular HGB Conc 32.8 g/dl (31.0-35.0); Mean Corpuscular Hemoglobin 32.6 pg (27.0-33.0); Mean Corpuscular Volume 99.4 fL (80.0-98.0); Mean Platelet Volume 9.3 fL (9.4-12.3); Monocytes Absolute Auto 0.4 X10*3/uL (0.1-1.2); Monocytes Percent Auto 4.1 % (2-11); Neutrophils Absolute Auto 7.2 x10*3/uL (2.0-8.3); Neutrophils Percent Auto 77.4 % (45-73); Platelet Count 646 X10*3/uL (160-400); Red Blood Count 5.31 X10*6/uL (4.20-5.50); Red Cell Distribution Width 17.1 % (11.0-16.0); White Blood Count 9.2 X10*3/uL (4.8-10.8)
--- NOTE | 2024-03-02 09:39 | ED_ITS ---
HPI - General Adult General Chief complaint: Fall Stated complaint: WEAKNESS PER EMS Time Seen by Provider: 03/02/24 08:52 Source: patient and EMS Mode of arrival: EMS Limitations: no limitations History of Present Illness ED Provider: Dr. Wilkes HPI narrative: Neighbor called EMS because the patient is weak and slid out of bed and had a hard time getting up. Patient recently started on Buspirone. patient states she just doesn't feel right Onset (ago): day(s) Related Data Home Medications ?Medication ?Instructions ?Recorded ?Confirmed aspirin 81 mg tablet,delayed 81 mg PO DAILY 09/25/20 02/19/24 release (Adult Low Dose Aspirin) Previous Rx's ?Medication ?Instructions ?Recorded levothyroxine 50 mcg tablet 50 mcg PO DAILY 90 days #90 tabs 05/18/23 gabapentin 100 mg capsule 100 mg PO BEDTIME Neuropathy #30 12/09/23 caps alendronate 70 mg tablet (Fosamax) 70 mg PO QWEEK 90 days #13 tabs 12/18/23 buspirone 5 mg tablet 5 mg PO .q am PRN anxiety 15 days 02/23/24 #15 tabs atenolol 25 mg tablet 25 mg PO DAILY 90 days #90 tabs 02/29/24 Allergies Allergy/AdvReac Type Severity Reaction Status Date / Time No Known Allergies Allergy Unknown Verified 03/02/24 09:06 Review of Systems 2 Review of Systems: Yes all other systems are reviewed and are negative Neurologic: Denies Sensory deficit (Neuro) PMFSH Past Medical History Medical History Bleeding hemorrhoids Family History Family History Father Family hx of colon cancer Social History Social History Household Members: Spouse Housing: Condominium Are you a primary respiratory care assistant to a significant other at home: No Do you presently have visiting nurse or other home services: No Alcohol intake: current Alcohol intake frequency: 0-2 drinks per day Alcohol type: hard liquor Patient Tobacco Use Status: Never used Tobacco e-Cigarette/Vaping Use: Never Used Second Hand Smoke Exposure: No Advance Directives: No Advance Directives Information Provided: Yes Do you have a plan to hurt others: No Plan service: No Current occupational status: retired Cognitive needs: No Hearing needs: No Vision needs: Yes Physical Exam ED Vital Signs: Vital Signs - 24 hr 03/02/24 09:02 03/02/24 10:16 03/02/24 11:08 Temperature 98.4 F Pulse Rate 83 74 74 Respiratory Rate 18 17 Blood Pressure 147/69 H 152/54 H 152/54 H Pulse Oximetry 97 99 99 Oxygen Delivery Method Room Air Room Air 03/02/24 12:13 03/02/24 13:13 Temperature 97.2 F Pulse Rate 78 95 Respiratory Rate 18 20 Blood Pressure 164/73 H 159/67 H Pulse Oximetry 95 97 Oxygen Delivery Method Room Air Room Air BMI result Body Mass Index 22.7 Const Other: elderly frail Nutritional Appearance: average body habitus Orientation/consciousness: oriented to person and patient oriented x3 Limitations: no limitations HENMT Head: Yes normal to inspection Ears: external ears normal General nose exam: Normal external nose present Mouth: Normal oral and palatal mucosa present and oropharynx normal Throat: Yes posterior oropharynx normal Eyes General: appearance normal, both eyes and all related structures Neck Neck: Yes normal visual inspection Chest Chest palpation & inspection: normal inspection of the chest Resp Auscultation: clear to auscultation bilaterally Cardio Jugular venous distension: no JVD Rate: regular rate Rhythm: regular rhythm Heart sounds: S1 normal heart sound present and S2 normal heart sound present GI Inspection: Yes normal to inspection Palpation (GI): Soft to palpation, nontender and No hepatosplenomegaly present Auscultation: normal bowel sounds General: Yes no CVA tenderness Back/Spine/Pelvis Back: no CVA tenderness Skin General skin exam: no rashes or lesions noted Neuro General: oriented to person and patient oriented x3 Cranial nerves: Yes CN's II-XII intact bilaterally Motor exam (neuro): 5/5 motor strength present throughout Sensory Exam: No Sensory deficit (Neuro) Extrem General: Yes normal to inspection Psych Appearance: grossly normal Course Reevaluation(s) Reevaluation #1: Patient looking well will dc home Time: 12:29 Medical Decision Making Differential Diagnosis Differential Diagnoses: The differential diagnosis associated with the presentation includes (anemia, electrolyte abnormality, UTI, weakness) Admission/Observation Consideration of admission/observation: Escalation of care including admission/observation considered (upon arrival patient considered for admission) Lab Data 07/03/24 09:23 03/02/24 09:23 Labs: Lab Results 03/02/24 03/02/24 Range/Units 09:23 09:44 WBC 9.2 (4.8-10.8) X10*3/uL RBC 5.31 (4.20-5.50) X10*6/uL Hgb 17.3 H (12.0-16.0) g/dl Hct 52.8 H (37.0-47.0) % MCV 99.4 H (80.0-98.0) fL MCH 32.6 (27.0-33.0) pg MCHC 32.8 (31.0-35.0) g/dl RDW 17.1 H (11.0-16.0) % Plt Count 646 H (160-400) X10*3/uL MPV 9.3 L (9.4-12.3) fL Immature Gran % (Auto) 0.5 H (0.0-0.4) % Neut % (Auto) 77.4 H (45-73) % Lymph % (Auto) 14.5 L (20-40) % [place] % (Auto) 4.1 (2-11) % Eos % (Auto) 2.1 (0-4) % Baso % (Auto) 1.4 (0-2) % Lymph # (Auto) 1.3 (1.2-4.9) X10*3/uL [place] # (Auto) 0.4 (0.1-1.2) X10*3/uL Eos # (Auto) 0.2 (0.0-0.4) X10*3/uL Baso # (Auto) 0.1 (0.0-0.2) X10*3/uL Abs Immat Gran (auto) 0.05 H (0.00-0.03) X10*3/uL Absolute Neuts (auto) 7.2 (2.0-8.3) x10*3/uL Absolute Nucleated RBC 0.000 (0.0-0.012) X10*3/uL Nucleated RBC % (auto) 0.0 (0.0-0.2) /100WBC Sodium 143 (135-145) mmol/L Potassium 4.3 (3.3-5.1) mmol/L Chloride 107 (96-108) mmol/L Carbon Dioxide 29 (22-29) mmol/L Anion Gap 11 L (12-20) BUN 11 (9-16) mg/dL Creatinine 0.87 (0.5-1.4) mg/dL Estim Creat Clear Calc 41.9 Estimated GFR > 60 Random Glucose 92 (60-115) mg/dL Calcium 9.7 (8.4-10.2) mg/dL Total Bilirubin 0.4 (0.0-1.0) mg/dL AST 25 (5-31) U/L ALT 21 (0-31) U/L Alkaline Phosphatase 63 (39-117) U/L Troponin I High Sens < 2.7 (<3.5-17.0) ng/L Total Protein 6.5 (6.5-8.0) g/dL Albumin 4.1 (3.5-5.0) g/dL Urine Color Yellow Urine Appearance Clear Urine pH 5.5 (5.0-9.0) Ur Specific Nathalie 1.010 (1.005-1.025) Urine Protein Negative (Neg-Trace) mg/dL Urine Glucose (UA) Negative (Negative) mg/dL Urine Ketones Negative (Negative) mg/dL Urine Blood Negative (Negative) Urine Nitrite Negative (Negative) Ur Leukocyte Esterase Negative (Negative) COVID-19 (ADENIKE) Negative (Negative) COVID-19 Clin Com See Note Independent Interpretation I performed an independent interpretation of an: EKG (sinus [address] or twave changes) Tests considered The following testing was considered but not selected: CT of brain considered but patient is non focal Prescription Management I considered prescription management with: Antibiotic (no evidence of UTI) Discharge Plan Discharge Clinical Impression: Weakness Patient Disposition: Home, Self-Care Instructions: Weakness (ED) Prescriptions: No Action levothyroxine 50 mcg tablet 50 mcg PO DAILY 90 Days Qty: 90 3RF alendronate [Fosamax] 70 mg tablet 70 mg PO QWEEK 90 Days Qty: 13 1RF buspirone 5 mg tablet 5 mg PO .q am PRN (Reason: anxiety) 15 Days Qty: 15 0RF atenolol 25 mg tablet 25 mg PO DAILY 90 Days Qty: 90 0RF aspirin [Adult Low Dose Aspirin] 81 mg tablet,delayed release (DR/EC) 81 mg PO DAILY gabapentin 100 mg capsule 100 mg PO BEDTIME Qty: 30 0RF Referrals: Chuck Morris MD [Primary Care Provider] - 1 week Discharge Date/Time: 03/02/24 13:24 Print Language: Trinidadian
[2024-03-02 09:45] LABS: Alanine Aminotransferase 21 U/L (0-31); Albumin Level 4.1 g/dL (3.5-5.0); Alkaline Phosphatase 63 U/L (39-117); Anion Gap 11 (12-20); Aspartate Amino Transferase 25 U/L (5-31); Bilirubin Total 0.4 mg/dL (0.0-1.0); Blood Urea Nitrogen 11 mg/dL (9-16); Calcium 9.7 mg/dL (8.4-10.2); Carbon Dioxide 29 mmol/L (22-29); Chloride 107 mmol/L (96-108); Creatinine Clr Calc Pharmacy 41.9; Estimated Glomerular Filt Rate > 60; Glucose Random 92 mg/dL (60-115); Potassium 4.3 mmol/L (3.3-5.1); Sodium 143 mmol/L (135-145); Total Protein 6.5 g/dL (6.5-8.0)
[2024-03-02 09:55] LABS: Troponin-I High Sensitivity < 2.7 ng/L (<3.5-17.0)
[2024-03-02 09:56] LABS: IDNOW Serial# 152EDE1D
[2024-03-02 09:56] LABS: Appearance Urine Clear; Color Urine Yellow; Glucose Urine UA Negative (Negative); Leukocyte Esterase Urine Negative (Negative); Nitrite Urine Negative (Negative); PH 5.5 (5.0-9.0); Urine Blood Negative (Negative); Urine Ketones Negative (Negative); Urine Protein Negative (Neg-Trace)
[2024-03-02 09:57] LABS: COVID-19 Test Negative (Negative)
[2024-03-02 10:16] VITALS: BP 152/54; PULSE 74; RESP 17; O2SAT 99
[2024-03-02 11:08] VITALS: BP 152/54; PULSE 74; O2SAT 99
--- NOTE | 2024-03-02 11:30 | PC.NURSE ---
patient ambulated with steady gait to and from the bathroom.
--- NOTE | 2024-03-02 12:07 | MHC.CM.ED ---
Addendum entered by Lucita Blevins 03/02/24 12:45: Patient ready for d/c. [facility] shuttle booked for 145pm. Patient can go to d/c lounge in the main lobby. Lisa PAVON aware. Original Note: Received case management consult from Dr Wilkes. Patient came to the ER after a fall. Work up essentially negative. Physical therapy eval completed. No services indicated. Met with patient in regards to discharge planning. Patient lives alone, ambulates independently and had no services prior to coming to the ER. No services anticipated to be needed because patient is not homebound and still drives. Patient will need [facility] shuttle when she is ready for d/c. Dr Wilkes aware. Continue to monitor for d/c needs.
[2024-03-02 12:13] VITALS: BP 164/73; PULSE 78; RESP 18; O2SAT 95
[2024-03-02 13:13] VITALS: BP 159/67; PULSE 95; RESP 20; TEMP 36.2; O2SAT 97
== END 2024-03-02 13:24 | disposition home or self-care (01) ==
PROVIDERS: Emergency Provider Emergency Medicine; PCP Internal Medicine
DX: R53.1 Weakness (principal); I10 Essential (primary) hypertension; Z79.899 Other long term (current) drug therapy
CPT/HCPCS: 36415; 80053; 81003; 84484; 85025; 87635; 93005; 97161; 99284

== ENCOUNTER → 2024-03-02 09:04 | Outpatient (BNV) | payer MEDICARE, SELFPAY | PROVIDERS: Emergency Provider Emergency Medicine; PCP Internal Medicine; Visit Provider Internal Medicine | DX: R53.1 Weakness (principal) | CPT/HCPCS: 93010 ==

== ENCOUNTER 2024-03-25 13:32 | Outpatient (REF) | payer MEDICARE, SELFPAY | END 2024-03-25 13:33 | disposition home or self-care (01) | LOC: HO.BBR 13:32 | PROVIDERS: PCP Internal Medicine; Visit Provider Internal Medicine Medical Oncology | DX: E83.110 Hereditary hemochromatosis (principal) | CPT/HCPCS: 85014; 85018; 99195 ==

== ENCOUNTER 2024-04-02 14:17 | Emergency (ER) | payer MEDICARE, SELFPAY ==
[2024-04-02] VITALS (11 sets, daily range): BP systolic 169–238; BP diastolic 66–97; PULSE 77–95; RESP 16–20; TEMP 36.9–37.2; O2SAT 95–98; BMI 21.2
--- NOTE | ~2024-04-02 | CT_ITS ---
EXAMINATION: CT HEAD WITHOUT CONTRAST CLINICAL INFORMATION: Headache, hypertension COMPARISON: MRI brain 07/23/2019 TECHNIQUE: Contiguous axial imaging was performed from the skull base to vertex without intravenous administration of contrast. This CT examination was performed using dose optimization techniques as appropriate, variously including the following: *Automated exposure control *Adjustment of mA and/or kV according to patient size (this includes techniques or standardized protocols for targeted exams where dose is matched to indication/reason for exam; i.e. extremities or head) *Use of iterative reconstruction technique DLP: 525 mGy-cm FINDINGS: There is no evidence of acute intracranial hemorrhage or edematous territorial infarction. The oliver-white matter differentiation appears preserved. Proportional prominence of the ventricles and cortical sulci with diffuse volume loss. Patchy hypodensities in the periventricular and deep white matter likely representing mild chronic microangiopathic changes. There is no mass effect or midline shift. No acute extra-axial collection. No acute osseous or soft tissue abnormality. Mild mucosal thickening involving the posterior ethmoid air cells bilaterally, left greater than right left compartment of sphenoid sinus. Otherwise the visualized paranasal sinuses and mastoids are well-aerated. CT/CT head/brain wo IV con IMPRESSION: 1. No acute intracranial pathology. 2. Diffuse cerebral volume loss and mild chronic microangiopathic changes.
--- NOTE | ~2024-04-02 | XR_ITS ---
EXAMINATION: XR CHEST CLINICAL INFORMATION: Dizziness COMPARISON: None available. TECHNIQUE: Frontal view of the chest was obtained. FINDINGS: No significant abnormality is noted involving the heart, lungs, mediastinum, bony thorax or soft tissues. XR/XR chest 1V IMPRESSION: Unremarkable examination.
--- NOTE | 2024-04-02 14:48 | ECG_ITS ---
Test Reason : DIZZINESS Blood Pressure : / mmHG Vent. Rate : 089 BPM Atrial Rate : 089 BPM P-R Int : 146 ms QRS Dur : 074 ms QT Int : 352 ms P-R-T Axes : 073 007 056 degrees QTc Int : 428 ms Normal sinus rhythm Normal ECG When compared with ECG of 02-MAR-2024 09:07, No significant change was found Referred By: Enma Mora Electronically Signed By:Fan Escalera
[2024-04-02 15:06] LABS: MANUAL DIFF FLAG NO
[2024-04-02] MEDS: 0.9 % Sodium Chloride 500 ML 999 ML IV (15:07)
[2024-04-02] MEDS: Labetalol HCL 100 MG/20 ML VIAL IVPUSH (15:07)
[2024-04-02 15:11] LABS: Basophils Absolute Auto 0.1 X10*3/uL (0.0-0.2); Basophils Percent Auto 1.5 % (0-2); Eosinophils Absolute Auto 0.1 X10*3/uL (0.0-0.4); Eosinophils Percent Auto 1.3 % (0-4); Hematocrit 50.9 % (37.0-47.0); Hemoglobin 17.1 g/dl (12.0-16.0); Imm Gran Abs Auto 0.03 X10*3/uL (0.00-0.03); Imm Gran Pct Auto 0.3 % (0.0-0.4); Lymphocytes Absolute Auto 1.1 X10*3/uL (1.2-4.9); Lymphocytes Percent Auto 11.8 % (20-40); Mean Corpuscular HGB Conc 33.6 g/dl (31.0-35.0); Mean Corpuscular Hemoglobin 32.8 pg (27.0-33.0); Mean Corpuscular Volume 97.5 fL (80.0-98.0); Mean Platelet Volume 9.5 fL (9.4-12.3); Monocytes Absolute Auto 0.6 X10*3/uL (0.1-1.2); Monocytes Percent Auto 6.6 % (2-11); Neutrophils Absolute Auto 7.6 x10*3/uL (2.0-8.3); Neutrophils Percent Auto 78.5 % (45-73); Platelet Count 624 X10*3/uL (160-400); Red Blood Count 5.22 X10*6/uL (4.20-5.50); Red Cell Distribution Width 17.2 % (11.0-16.0); White Blood Count 9.6 X10*3/uL (4.8-10.8)
[2024-04-02 15:17] LABS: INTERNATIONAL NORM RATIO 0.9 (0.9-1.1); Prothrombin Time 11.5 SEC (11.1-13.3)
--- NOTE | 2024-04-02 15:17 | PC.NURSE ---
Presents to ED via EMS from home, reports dizziness X1 week intermittent along with pressure in sinuses and hypertension. Denies LOC, falls, N/V, fevers, cough, CP, SOB or ABD pain. Reports she has had similar episodes in the past. Alert and oriented, breathing even and unlabored, NSR on bedside electronic device monitor. Significantly hypertensive.
--- NOTE | 2024-04-02 15:26 | ED_ITS ---
HPI - General Adult General Chief complaint: Dizziness Stated complaint: DIZZINESS Time Seen by Provider: 04/02/24 14:20 Source: patient, EMS, RN notes reviewed and old records reviewed Mode of arrival: EMS History of Present Illness ED Provider: Enma Mora PA-C HPI narrative: 83-year-old female with a past medical history of hypertension, thrombocytosis, hypothyroid, anxiety, neuropathy, presenting to the ED via EMS complaining of room spinning dizziness worse with head movement [employer]AM [employer] while sitting on a couch, resolved at present. Also reports sinus pressure x a few days and hypertension. Admits to mild headache earlier today, resolved now. Reports compliance with antihypertensives. Denies vision change/loss, CP, SOB, numbness/tingling, abdominal pain, nausea/vomiting. Related Data Home Medications ?Medication ?Instructions ?Recorded ?Confirmed aspirin 81 mg tablet,delayed 81 mg PO DAILY 09/25/20 02/19/24 release (Adult Low Dose Aspirin) Previous Rx's ?Medication ?Instructions ?Recorded levothyroxine 50 mcg tablet 50 mcg PO DAILY 90 days #90 tabs 05/18/23 gabapentin 100 mg capsule 100 mg PO BEDTIME Neuropathy #30 12/09/23 caps alendronate 70 mg tablet (Fosamax) 70 mg PO QWEEK 90 days #13 tabs 12/18/23 buspirone 5 mg tablet 5 mg PO .q am PRN anxiety 15 days 02/23/24 #15 tabs atenolol 25 mg tablet 25 mg PO DAILY 90 days #90 tabs 02/29/24 Allergies Allergy/AdvReac Type Severity Reaction Status Date / Time No Known Allergies Allergy Unknown Verified 04/02/24 14:28 Review of Systems 2 Review of Systems: Constitutional: No Fever, No Chills ENT/Mouth: No Ear Pain, No Nasal Congestion, No sore throat, No Rhinorrhea, No Swallowing Difficulty Cardiovascular: No Chest Pain, No SOB Respiratory: No Cough, No Sputum Gastrointestinal: No Nausea, No Vomiting, No Abdominal pain Genitourinary: No Dysuria, No Urinary Frequency, No Hematuria, No Flank Pain Musculoskeletal: No joint pain, No Myalgias, No Joint Swelling Skin: No Skin Lesions, No rash Neuro: No Weakness, No Numbness, No Paresthesias, + dizziness (resolved), + headache (resolved) Yes all other systems are reviewed and are negative Constitutional: Constitutional: Reports as per HPI Neurologic: Denies Abnormal speech present [facility] Past Medical History Attestation statement: The following information was validated with the patient. Source: old records reviewed Medical History Bleeding hemorrhoids Family History Family History Father Family hx of colon cancer Social History Social History Household Members: Spouse [facility] Are you a primary healthcare corporate account director to a significant other at home: No Do you presently have visiting nurse or other home services: No Alcohol intake: current Alcohol intake frequency: 0-2 drinks per day Alcohol type: hard liquor Patient Tobacco Use Status: Never used Tobacco Smoked in Last 30 Days: No e-Cigarette/Vaping Use: Never Used Second Hand Smoke Exposure: No Advance Directives: No Advance Directives Information Provided: No service: No Current occupational status: retired Cognitive needs: No Hearing needs: No Vision needs: Yes Physical Exam ED Vital Signs: Vital Signs - 24 hr 04/02/24 14:27 04/02/24 15:07 04/02/24 15:12 Temperature 98.4 F Pulse Rate 77 80 80 Respiratory Rate 16 20 Blood Pressure 238/84 H 207/89 H 169/69 H Pulse Oximetry 98 Oxygen Delivery Method Room Air BMI result Body Mass Index 21.2 Const General: cooperative, healthy appearing and no acute distress Orientation/consciousness: patient oriented x3 Limitations: no limitations [facility] Head: Yes normal to inspection and Yes atraumatic Ears: hearing grossly normal bilaterally and external ears normal General nose exam: Normal external nose present Face and sinus: Yes normal facial exam Mouth: Normal oral and palatal mucosa present Throat: Yes posterior oropharynx normal and Yes uvula midline Eyes General: appearance normal, both eyes and all related structures Pupils: Equal, round and reactive pupils present EOM: EOMs intact bilaterally Neck Neck: Yes normal visual inspection and Yes no meningeal signs Resp Effort & Inspection: normal respiratory effort and no respiratory distress Auscultation: clear to auscultation bilaterally, no crackles and no wheezes Cardio Rate: regular rate Heart sounds: S1 normal heart sound present and S2 normal heart sound present GI Inspection: Yes normal to inspection Palpation (GI): Soft to palpation, nontender, no guarding and not rigid Skin Rashes: no rashes Wounds: no wounds Neuro General: patient oriented x3, tone normal, moves all extremities, no meningeal signs, no focal motor deficits and CN's II-XI intact bilaterally Cranial nerves: Yes CN's II-XII intact bilaterally, Yes Equal, round and reactive pupils present and Yes Bilaterally intact EOM present Cognition (Neuro): normal cognition Speech: No Abnormal speech present Gait exam (Neuro): Normal gait present Motor exam (neuro): 5/5 motor strength present throughout, Pronator motor function not present and no tremor noted Coordination: [id number] test normal Romberg Test: Negative Extrem General: Yes normal to inspection and Yes no pedal edema Course Course Course Narrative: -1552--No leukocytosis. H/H at patients baseline. Labs otherwise reassuring. Troponin negative -COVID/flu/RSV negative CT head/brain wo IV con IMPRESSION: 1. No acute intracranial pathology. 2. Diffuse cerebral volume loss and mild chronic microangiopathic changes. > BP improved after IV labetalol to 169/69 -patient ambulated in the ED without ataxia or difficulty. -1630--ED care transferred to AD Yousif pending orthostatics, CXR, repeat troponin & UA Medications Administered Discontinued Medications Generic Name Dose Route Start Last Admin Trade Name Freq PRN Reason Stop Dose Admin Sodium Chloride 500 mls @ 999 mls/hr 04/02/24 15:00 04/02/24 15:07 Ns IV 04/02/24 15:30 999 mls/hr .Q31M BRIAN Administration Labetalol HCl 5 mg 04/02/24 14:52 04/02/24 15:07 Labetalol Hcl 100 Mg/20 Ml Vial IVPUSH 04/02/24 14:53 5 mg ONCE ONE Administration Medical Decision Making Medical Decision Making MDM Narrative: 83-year-old female with a past medical history of hypertension, thrombocytosis, hypothyroid, anxiety, neuropathy, presenting to the ED via EMS complaining of room spinning dizziness worse with head movement [employer] while sitting on a couch, resolved at present. Also reports sinus pressure x a few days and hypertension. On exam hypertensive 228/84 (patient reports chronic hypertension due to anxiety/medical providers), NAD, nontoxic appearing, asymptomatic at present, no focal neuro deficits. Concern for hypertensive urgency/emergency vs BPPV vs vertigo. Lower suspicion for CVA/TIA or ICH. Rule out metabolic/infectious etiology Plan: EKG, labs, UA, CXR, head CT, orthostatics, IV antihypertensive Please refer to course for remaining clinical decision making, interpretation of labs/imaging results, and discussions with consultants and/or family members. Differential Diagnosis Differential Diagnoses: The differential diagnosis associated with the presentation includes As above Admission/Observation Consideration of admission/observation: Escalation of care including admission/observation considered Lab Data MDM Lab Attestation statement: I reviewed the patient's lab results. 04/02/24 15:03 04/02/24 15:03 Labs: Lab Results 04/02/24 Range/Units 15:03 WBC 9.6 (4.8-10.8) X10*3/uL RBC 5.22 (4.20-5.50) X10*6/uL Hgb 17.1 H (12.0-16.0) g/dl Hct 50.9 H (37.0-47.0) % MCV 97.5 (80.0-98.0) fL MCH 32.8 (27.0-33.0) pg MCHC 33.6 (31.0-35.0) g/dl RDW 17.2 H (11.0-16.0) % Plt Count 624 H (160-400) X10*3/uL MPV 9.5 (9.4-12.3) fL Immature Gran % (Auto) 0.3 (0.0-0.4) % Neut % (Auto) 78.5 H (45-73) % Lymph % (Auto) 11.8 L (20-40) % [place] % (Auto) 6.6 (2-11) % Eos % (Auto) 1.3 (0-4) % Baso % (Auto) 1.5 (0-2) % Lymph # (Auto) 1.1 L (1.2-4.9) X10*3/uL [place] # (Auto) 0.6 (0.1-1.2) X10*3/uL Eos # (Auto) 0.1 (0.0-0.4) X10*3/uL Baso # (Auto) 0.1 (0.0-0.2) X10*3/uL Abs Immat Gran (auto) 0.03 (0.00-0.03) X10*3/uL Absolute Neuts (auto) 7.6 (2.0-8.3) x10*3/uL Absolute Nucleated RBC 0.000 (0.0-0.012) X10*3/uL Nucleated RBC % (auto) 0.0 (0.0-0.2) /100WBC PT 11.5 (11.1-13.3) SEC INR 0.9 (0.9-1.1) Sodium 141 (135-145) mmol/L Potassium 4.4 (3.3-5.1) mmol/L Chloride 105 (96-108) mmol/L Carbon Dioxide 25 (22-29) mmol/L Anion Gap 15 (12-20) BUN 13 (9-16) mg/dL Creatinine 0.87 (0.5-1.4) mg/dL Estim Creat Clear Calc 41.9 Estimated GFR > 60 Random Glucose 91 (60-115) mg/dL Calcium 10.0 (8.4-10.2) mg/dL Magnesium 2.3 (1.6-2.6) mg/dL Total Bilirubin 0.5 (0.0-1.0) mg/dL Direct Bilirubin 0.2 (0.0-0.5) mg/dL AST 26 (5-31) U/L ALT 20 (0-31) U/L Alkaline Phosphatase 61 (39-117) U/L Troponin I High Sens < 2.7 (<3.5-17.0) ng/L Total Protein 6.9 (6.5-8.0) g/dL Albumin 4.5 (3.5-5.0) g/dL Influenza Type A (PCR) NEGATIVE (Negative) Influenza Type B (PCR) NEGATIVE (Negative) RSV RNA Qual (PCR) NEGATIVE (Negative) SARS-CoV-2 RNA (RT-PCR) NEGATIVE (Negative) Independent Interpretation I performed an independent interpretation of an: EKG, Plain X-Ray and CT Scan Radiology Impression Discussion of test interpretation with radiology: I have reviewed the radiologist's reading. Independent Historian Clinical information obtained from an independent historian. History obtained from or confirmed by: EMS External Record Review External record reviewed: Inpatient record, Office record, Outpatient record, Prior outpatient labs, Prior outpatient radiology, Primary care record and Outside ED record Tests considered The following testing was considered but not selected: As above Prescription Management I considered prescription management with: Pain Medication, Antibiotic and Other Chronic Conditions Patient?s care impacted by: Hypertension Critical Care Time Critical Care Time Critical Care Time: Yes Total Critical Care Time: 40 Attestation: I have personally provided critical care time exclusive of time spent on separately billable procedures. Time includes review of lab data, radiology results, discussion with consultants, and monitoring for potential decompensation. Intervention performed as documented. Discharge Plan Discharge Clinical Impression: Hypertension, Dizziness Patient Disposition: Still a Patient Prescriptions: No Action levothyroxine 50 mcg tablet 50 mcg PO DAILY 90 Days Qty: 90 3RF alendronate [Fosamax] 70 mg tablet 70 mg PO QWEEK 90 Days Qty: 13 1RF buspirone 5 mg tablet 5 mg PO .q am PRN (Reason: anxiety) 15 Days Qty: 15 0RF atenolol 25 mg tablet 25 mg PO DAILY 90 Days Qty: 90 0RF aspirin [Adult Low Dose Aspirin] 81 mg tablet,delayed release (DR/EC) 81 mg PO DAILY gabapentin 100 mg capsule 100 mg PO BEDTIME Qty: 30 0RF Print Language: Mongolian
[2024-04-02 15:30] LABS: Alanine Aminotransferase 20 U/L (0-31); Albumin Level 4.5 g/dL (3.5-5.0); Alkaline Phosphatase 61 U/L (39-117); Anion Gap 15 (12-20); Aspartate Amino Transferase 26 U/L (5-31); Bilirubin Direct 0.2 mg/dL (0.0-0.5); Bilirubin Total 0.5 mg/dL (0.0-1.0); Blood Urea Nitrogen 13 mg/dL (9-16); Carbon Dioxide 25 mmol/L (22-29); Chloride 105 mmol/L (96-108); Creatinine Clr Calc Pharmacy 41.9; Estimated Glomerular Filt Rate > 60; Glucose Random 91 mg/dL (60-115); Magnesium 2.3 mg/dL (1.6-2.6); Potassium 4.4 mmol/L (3.3-5.1); Sodium 141 mmol/L (135-145); Total Protein 6.9 g/dL (6.5-8.0)
[2024-04-02 15:37] LABS: Troponin-I High Sensitivity < 2.7 ng/L (<3.5-17.0)
[2024-04-02 15:45] LABS: Influenza A PCR NEGATIVE (Negative); Influenza B PCR NEGATIVE (Negative); Resp Syncy Virus RNA Qual PCR NEGATIVE (Negative); SARS COV2 PCR INHOUSE NEGATIVE (Negative)
[2024-04-02 16:07] LABS: Appearance Urine Clear; Color Urine Dark Yellow; Glucose Urine UA Negative (Negative); Leukocyte Esterase Urine Negative (Negative); Nitrite Urine Negative (Negative); PH 5.5 (5.0-9.0); Urine Blood Negative (Negative); Urine Ketones Trace mg/dL (Negative); Urine Protein Negative (Neg-Trace)
[2024-04-02 18:46] LABS: Troponin-I High Sensitivity 8.8 ng/L (<3.5-17.0)
--- NOTE | 2024-04-02 19:17 | PC.NURSE ---
This RN assumed pt care @ 1900. Pt is ca&ox4, no signs of distress. Pt is sitting up in bed, resting comfortably. Pt denies pain at this time. Plan of care ongoing.
[2024-04-02] MEDS: Labetalol HCL 100 MG TABLET PO (20:45)
--- NOTE | 2024-04-02 20:46 | PC.NURSE ---
Pts B/P . Provider Nica notified and aware. awaiting new med orders. Pt medicated per oct. Pts neighbor at bedside. Plan of care ongoing.
--- NOTE | 2024-04-02 21:50 | PC.NURSE ---
Pts b/p lowered to 183/82 provider yoan castañeda. Pt to be d/c. Plan of care ongoing.
== END 2024-04-02 21:51 | disposition home or self-care (01) ==
PROVIDERS: Physician Assistant; Emergency Provider Emergency Medicine
DX: I10 Essential (primary) hypertension (principal); R42 Dizziness and giddiness; R51.9 Headache, unspecified; Z03.818 Encounter for observation for suspected exposure to other biological agents ruled out; F41.1 Generalized anxiety disorder; E03.9 Hypothyroidism, unspecified; G62.9 Polyneuropathy, unspecified; Z79.82 Long term (current) use of aspirin; Z79.899 Other long term (current) drug therapy
CPT/HCPCS: 0241U; 36415; 70450; 71045; 80048; 80076; 81003; 83735; 84484; 85025; 85610; 93005; 96361; 96374; 99285; J1920

== ENCOUNTER → 2024-04-02 14:48 | Outpatient (BNV) | payer MEDICARE, SELFPAY | PROVIDERS: Emergency Provider Emergency Medicine; Visit Provider Internal Medicine Cardiovascular Disease | DX: R42 Dizziness and giddiness (principal) | CPT/HCPCS: 93010 ==

== ENCOUNTER 2024-04-05 09:59 | Outpatient (AMB) | payer MEDICARE, SELFPAY ==
[2024-04-05 10:00] VITALS: BP 186/88; PULSE 79; O2SAT 97; BMI 21.3
--- NOTE | 2024-04-05 10:00 | A.OFFPC_ITS ---
Vital Signs 04/05/24 10:00 Height 5 ft 3 in Weight 120 lb 2 oz BMI 21.3 BP 186/88 H Blood Pressure Location Rt brachial Position Sitting Pulse 79 Pulse Source Pulse Oximeter Pulse Oximetry (%) 97 Oxygen Delivery Method Room Air Intake Visit Reasons: 4M F/U Allergies No Known Allergies Allergy (Unknown, Verified 04/05/24 10:01) Medication List - Last Reconciled 04/05/24 by Chuck Morris MD alendronate (Fosamax) 70 mg PO QWEEK 90 days aspirin (Adult Low Dose Aspirin) 81 mg PO DAILY atenolol 25 mg PO DAILY 90 days buspirone 5 mg PO .q am PRN 15 days gabapentin 100 mg PO BEDTIME levothyroxine 50 mcg PO DAILY 90 days Tobacco use date assessed: 04/05/24 Fall risk assessment: 2 + Falls in past year Last assessed Fall Risk: 04/05/24 Dental Screening Dental Screen Date: 04/05/24 Did you have a dental visit in the last 12 months?: Yes Did you have a dental problem in the last 6 months where you did not have access to dental care?: No Was dental information given to patient?: Patient has dentist HPI 4M F/U HPI Details Patient is 83-year-old female with a history of hypertension, thrombocytosis, hypothyroidism, anxiety disorder, peripheral neuropathy. Presented to emergency room 3rd of this month [facility] why EMS With a chief complaint of dizziness worse with head movement. Her blood pressure was 238/84 on arrival which gradually come down to 169/69 Neuro exam was negative Troponin negative COVID and RSV negative H&H at baseline No leukocytosis Patient does have a thrombocytosis history but they are stable and has come down slightly Her medication was increased to atenolol 25 mg b.i.d. Urinalysis chest x-ray unremarkable orthostatics were within normal limit UA does not appear to be infected After evaluation patient was discharged Patient says that it felt like vertigo, because she felt dizzy when she was moving She does not have any dizziness at this time However patient does agree today to take medication for anxiety She was given gabapentin in the past for neuropathy which did help with anxiety as well but then patient decided to stop that. I am starting her on Lexapro 10 mg tablets she is to take only half a tablet daily until seen again in 3 weeks Patient was also instructed to bring her blood pressure monitor along. She does not have any headache blurring of vision or chest pain at this time Blood pressure continued to be 186/88 However patient says that she was extremely worried about her platelets, reassured patient that her platelet has gone down to around 6 0s from 800s early this year She says that she is already feeling better. PFSH Medical History Bleeding hemorrhoids Family History Father Family hx of colon cancer Social History Household Members: [facility] Are you a primary ocular care technician to a significant other at home: No Do you presently have visiting nurse or other home services: No Alcohol intake: current Alcohol intake frequency: 0-2 drinks per day Alcohol type: hard liquor Patient Tobacco Use Status: Never used Tobacco e-Cigarette/Vaping Use: Never Used Second Hand Smoke Exposure: No service: No Current occupational status: retired Cognitive needs: No Hearing needs: No Vision needs: Yes Questionnaire PHQ-9 Over the last 2 weeks, how often have you been bothered by any of the following problems? 1. Little interest or pleasure in doing things: more than half the days 2. Feeling down, depressed, or hopeless: not at all 3. Trouble falling or staying asleep, or sleeping too much: not at all 4. Feeling tired or having little energy: several days 5. Poor appetite or overeating: not at all 6. Feeling bad about yourself - or that you are a failure or have let yourself or your family down: not at all 7. Trouble concentrating on things, such as reading the newspaper or watching television: not at all 8. Moving or speaking so slowly that other people could have noticed. Or the opposite - being so fidgety or restless that you have been moving around a lot more than usual: not at all 9. Thoughts that you would be better off or of hurting yourself in some way: not at all Total score: 3 Depression Screening Interpretation: Negative Depression Screening Done: Yes 39226 - PHQ-9 Billing: Yes Source: Developed by Drs. Saleem Stein, Paola Pool, Meek Bocanegra and colleagues, with an educational madhavi from [employer]. Thrive Questionnaire Date Thrive assessed: 04/05/24 I am a: Patient What is your living situation today?: I have a steady place to live Within the past 12 months, did the food you bought not last and you didn't have the money to get more?: Never true Within the past 12 months, did you worry whether your food would run out before you got money to buy more?: Never true Do you have trouble paying for medicines?: No Do you have trouble getting transportation to medical appointments?: No Do you have trouble paying your heating and electricity bill?: No Do you have trouble taking care of your child, family member or friend?: No Do you have trouble with day-to-day activities such as bathing, preparing meals, shopping, managing finances, etc.?: No Are you currently unemployed and looking for a job?: No Are you interested in more education?: No Please select the resources that you would like help with: Transportation Currently or been in a relationship where the following occur: No concerns reported THRIVE Score: 0 AUDIT C Alcohol Use Questionnaire (AUDIT-C) 1. How often do you have a drink containing alcohol?: 2-3 times a week 2. How many drinks containing alcohol do you have on a typical day when you are drinking?: 1 or 2 3. How often do you have six or more drinks on one occasion?: Never Total Score: 3 Score Reviewed/Action Taken: Yes OMI-7 AMB Questionnaire OMI-7 Date OMI - 7 assessed: 04/05/24 Feeling nervous, anxious, or on edge: 1 = Several days Not being able to stop or control worryin = Several days Worrying too much about different things: 1 = Several days Trouble relaxin = Several days Being so restless that it is hard to sit still: 0 = Not at all Becoming easily annoyed or irritable: 0 = Not at all Feeling afraid as if something awful might happen: 0 = Not at all Total OMI-7 score (0-4 normal; 5-9 mild; 10-14 moderate; 15-21 severe): 4 Source: Developed by Paola Polanco Kurt Kroenke and colleagues, with an educational madhavi from [employer]. OMI-7 Assessment Billing OMI-7 Assessment Tool: OMI-7 Assessment 24944 Review of Systems Const Denies chills and Denies fever(s) ENT Denies epistaxis and Denies nasal discharge Card Denies chest pain Resp Denies chest congestion, Denies cough and Denies hemoptysis GI Denies diarrhea and Denies nausea Skin/Breast Denies rash Neuro Reports no additional complaints Psych Reports no additional complaints Endo Reports no additional complaints Physical exam (Primary Care) Vital Signs: Last Vital Signs Pulse 79 04/05/24 10:00 BP 186/88 H 04/05/24 10:00 Pulse Ox 97 04/05/24 10:00 Oxygen Delivery Method Room Air 04/05/24 10:00 BMI result Body Mass Index 21.3 Tobacco/Smoking Status: Tobacco use Status Tobacco use date assessed 04/05/24 04/05/24 10:03 Patient Tobacco Use Status Never used Tobacco 04/05/24 10:00 e-Cigarette/Vaping Use Never Used 04/05/24 10:00 PHQ-9: PHQ-9 Score PHQ-9: Total score 3 04/05/24 10:54 Depression Screening Interpretation: Negative Thrive Assessment: Date of Thrive Assessment Date Thrive assessed 04/05/24 04/05/24 10:06 Currently or been in a relationship where the following occur: No concerns reported Const General: cooperative, comfortable and no acute distress Orientation/consciousness: patient oriented x3 HENMT Head: Yes normocephalic Eyes General: appearance normal, both eyes and all related structures Neck Neck: Yes supple Resp Effort & Inspection: normal respiratory effort, no cough and no stridor Cardio Rhythm: regular rhythm Heart sounds: S1 normal heart sound present and S2 normal heart sound present Skin General skin exam: turgor normal Neuro General: patient oriented x3, tone normal and moves all extremities Extrem Right lower extremity: no edema Left lower extremity: no edema Assessment and Plan Assessment & Plan (1) Hospital discharge follow-up: Code(s): Z09 - Encounter for follow-up examination after completed treatment for conditions other than malignant neoplasm (2) Dizziness: Code(s): R42 - Dizziness and giddiness (3) Elevated blood pressure reading: Code(s): R03.0 - Elevated blood-pressure reading, without diagnosis of hypertension (4) Peripheral neuropathy: Code(s): G62.9 - Polyneuropathy, unspecified Qualifiers: Peripheral neuropathy type: idiopathic neuropathy, unspecified Qualified Code(s): G60.9 - Hereditary and idiopathic neuropathy, unspecified (5) Essential thrombocytosis: Code(s): D47.3 - Essential (hemorrhagic) thrombocythemia (6) Other specified hypothyroidism: Code(s): E03.8 - Other specified hypothyroidism (7) Anxiety disorder: Code(s): F41.9 - Anxiety disorder, unspecified Qualifiers: Anxiety disorder type: generalized anxiety disorder Qualified Code(s): F41.1 - Generalized anxiety disorder Plan Patient is 83-year-old female with a history of hypertension, thrombocytosis, hypothyroidism, anxiety disorder, peripheral neuropathy. Presented to emergency room 3rd of this month [facility] why EMS With a chief complaint of dizziness worse with head movement. Her blood pressure was 238/84 on arrival which gradually come down to 169/69 Neuro exam was negative Troponin negative COVID and RSV negative H&H at baseline No leukocytosis Patient does have a thrombocytosis history but they are stable and has come down slightly Her medication was increased to atenolol 25 mg b.i.d. Urinalysis chest x-ray unremarkable orthostatics were within normal limit UA does not appear to be infected After evaluation patient was discharged Patient says that it felt like vertigo, because she felt dizzy when she was moving She does not have any dizziness at this time However patient does agree today to take medication for anxiety She was given gabapentin in the past for neuropathy which did help with anxiety as well but then patient decided to stop that. I am starting her on Lexapro 10 mg tablets she is to take only half a tablet daily until seen again in 3 weeks Patient was also instructed to bring her blood pressure monitor along. She does not have any headache blurring of vision or chest pain at this time Blood pressure continued to be 186/88 However patient says that she was extremely worried about her platelets, reassured patient that her platelet has gone down to around 6 0s from 800s early this year She says that she is already feeling better Medications: New escitalopram oxalate (Lexapro) 10 mg PO DAILY 30 tabs 0RF Discontinued buspirone Discontinued Reason: Doctor's Order 5 mg PO .q am 15 days PRN 15 tabs 0RF anxiety Coding Level of Care Code Est Pt Level 4 (85091) Diagnoses Hospital discharge follow-up Z09 Dizziness R42 Elevated blood pressure reading R03.0 Idiopathic peripheral neuropathy G60.9 Peripheral neuropathy type: idiopathic neuropathy, unspecified Essential thrombocytosis D47.3 Other specified hypothyroidism E03.8 Generalized anxiety disorder F41.1 Anxiety disorder type: generalized anxiety disorder Additional Codes OMI-7 Assessment Billing - OMI-7 Assessment Tool: OMI-7 Assessment 25544 ([id number])
== END 2024-04-05 10:35 | disposition home or self-care (01) ==
PROVIDERS: PCP Internal Medicine; Visit Provider Internal Medicine
DX: D47.3 Essential (hemorrhagic) thrombocythemia (principal); Z09 Encounter for follow-up examination after completed treatment for conditions other than malignant neoplasm; R42 Dizziness and giddiness; R03.0 Elevated blood-pressure reading, without diagnosis of hypertension; G60.9 Hereditary and idiopathic neuropathy, unspecified; E03.8 Other specified hypothyroidism; F41.1 Generalized anxiety disorder
CPT/HCPCS: 99214

== ENCOUNTER 2024-04-26 10:57 | Outpatient (AMB) | payer MEDICARE, SELFPAY ==
[2024-04-26 10:59] VITALS: BP 140/80; PULSE 80; O2SAT 96; BMI 21.4
--- NOTE | 2024-04-26 10:59 | MHC.PC.OV ---
Vital Signs 04/26/24 10:59 Height 5 ft 3 in Weight 121 lb BMI 21.4 BP 140/80 H Blood Pressure Location Rt brachial Position Sitting Pulse 80 Pulse Source Pulse Oximeter Pulse Oximetry (%) 96 Oxygen Delivery Method Room Air Intake Visit Reasons: 3 weeks Allergies No Known Allergies Allergy (Unknown, Verified 04/26/24 11:00) Medication List - Last Reconciled 04/26/24 by Chuck Morris MD alendronate (Fosamax) 70 mg PO QWEEK 90 days aspirin (Adult Low Dose Aspirin) 81 mg PO DAILY atenolol 25 mg PO DAILY 90 days escitalopram oxalate (Lexapro) 10 mg PO DAILY gabapentin 100 mg PO BEDTIME levothyroxine 50 mcg PO DAILY 90 days Tobacco use date assessed: 04/26/24 Fall risk assessment: No Falls in past year Last assessed Fall Risk: 04/26/24 Dental Screening Dental Screen Date: 04/26/24 Did you have a dental visit in the last 12 months?: No Did you have a dental problem in the last 6 months where you did not have access to dental care?: No Was dental information given to patient?: No HPI 3 weeks HPI Details Follow-up blood pressure and anxiety Blood pressure has improved by increasing atenolol 25 mg b.i.d. She is now also taking Lexapro 5 mg, patient says that she does not feel any different She is still very anxious and think a lot about her health and her who is in usp She tells me that she feels terrible about it I am increasing the Lexapro to 10 mg patient is in agreement with that She will continue both medications She is taking gabapentin only rarely for peripheral neuropathy Patient will return in 3 months for follow-up appointment [facility] Medical History Bleeding hemorrhoids Family History Father Family hx of colon cancer Social History Household Members: Spouse Housing: Condominium Are you a primary family day care worker to a significant other at home: No Do you presently have visiting nurse or other home services: No Alcohol intake: current Alcohol intake frequency: 0-2 drinks per day Alcohol type: hard liquor Patient Tobacco Use Status: Never used Tobacco e-Cigarette/Vaping Use: Never Used Second Hand Smoke Exposure: No service: No Current occupational status: retired Cognitive needs: No Hearing needs: No Vision needs: Yes Questionnaire PHQ-9 Over the last 2 weeks, how often have you been bothered by any of the following problems? 1. Little interest or pleasure in doing things: more than half the days 2. Feeling down, depressed, or hopeless: not at all 3. Trouble falling or staying asleep, or sleeping too much: not at all 4. Feeling tired or having little energy: several days 5. Poor appetite or overeating: not at all 6. Feeling bad about yourself - or that you are a failure or have let yourself or your family down: not at all 7. Trouble concentrating on things, such as reading the newspaper or watching television: not at all 8. Moving or speaking so slowly that other people could have noticed. Or the opposite - being so fidgety or restless that you have been moving around a lot more than usual: not at all 9. Thoughts that you would be better off or of hurting yourself in some way: not at all Total score: 3 Depression Screening Interpretation: Negative Depression Screening Done: Yes 18712 - PHQ-9 Billing: Yes Source: Developed by Drs. Saleem Stein, Paola Pool, Meek Bocanegra and colleagues, with an educational madhavi from [employer]. Thrive Questionnaire Date Thrive assessed: 04/26/24 I am a: Patient What is your living situation today?: I have a steady place to live Within the past 12 months, did the food you bought not last and you didn't have the money to get more?: Never true Within the past 12 months, did you worry whether your food would run out before you got money to buy more?: Never true Do you have trouble paying for medicines?: No Do you have trouble getting transportation to medical appointments?: No Do you have trouble paying your heating and electricity bill?: No Do you have trouble taking care of your child, family member or friend?: No Do you have trouble with day-to-day activities such as bathing, preparing meals, shopping, managing finances, etc.?: No Are you currently unemployed and looking for a job?: No Are you interested in more education?: No Please select the resources that you would like help with: Transportation Currently or been in a relationship where the following occur: No concerns reported THRIVE Score: 0 AUDIT C Alcohol Use Questionnaire (AUDIT-C) 1. How often do you have a drink containing alcohol?: 2-3 times a week 2. How many drinks containing alcohol do you have on a typical day when you are drinking?: 1 or 2 3. How often do you have six or more drinks on one occasion?: Never Total Score: 3 Score Reviewed/Action Taken: Yes OMI-7 AMB Questionnaire OMI-7 Date OMI - 7 assessed: 04/26/24 Feeling nervous, anxious, or on edge: 1 = Several days Not being able to stop or control worryin = Several days Worrying too much about different things: 1 = Several days Trouble relaxin = Several days Being so restless that it is hard to sit still: 0 = Not at all Becoming easily annoyed or irritable: 0 = Not at all Feeling afraid as if something awful might happen: 0 = Not at all Total OMI-7 score (0-4 normal; 5-9 mild; 10-14 moderate; 15-21 severe): 4 Source: Developed by Drs. Saleem Stein, Paloa Pool, Meek Bocanegra and colleagues, with an educational madhavi from [employer]. OMI-7 Assessment Billing OMI-7 Assessment Tool: OMI-7 Assessment 47079 Review of Systems Const Denies chills and Denies fever(s) ENT Denies epistaxis and Denies nasal discharge Card Denies chest pain Resp Denies chest congestion, Denies cough and Denies hemoptysis GI Denies diarrhea and Denies nausea Skin/Breast Denies rash Neuro Reports no additional complaints Psych Reports no additional complaints Endo Reports no additional complaints Physical exam (Primary Care) Vital Signs: Last Vital Signs Pulse 80 04/26/24 10:59 BP 140/80 H 04/26/24 10:59 Pulse Ox 96 04/26/24 10:59 Oxygen Delivery Method Room Air 04/26/24 10:59 BMI result Body Mass Index 21.4 Tobacco/Smoking Status: Tobacco use Status Tobacco use date assessed 04/26/24 04/26/24 11:01 Patient Tobacco Use Status Never used Tobacco 04/26/24 11:01 e-Cigarette/Vaping Use Never Used 04/26/24 11:01 PHQ-9: PHQ-9 Score PHQ-9: Total score 3 04/26/24 11:01 Depression Screening Interpretation: Negative Thrive Assessment: Date of Thrive Assessment Date Thrive assessed 04/26/24 04/26/24 11:01 Currently or been in a relationship where the following occur: No concerns reported Const General: cooperative, comfortable and no acute distress Orientation/consciousness: patient oriented x3 HENMT Head: Yes normocephalic Eyes General: appearance normal, both eyes and all related structures Neck Neck: Yes supple Resp Effort & Inspection: normal respiratory effort, no cough and no stridor Cardio Rhythm: regular rhythm Heart sounds: S1 normal heart sound present and S2 normal heart sound present Skin General skin exam: turgor normal Neuro General: patient oriented x3, tone normal and moves all extremities Extrem Right lower extremity: no edema Left lower extremity: no edema Assessment and Plan Assessment & Plan (1) Hypertension, essential: Code(s): I10 - Essential (primary) hypertension (2) Anxiety disorder: Code(s): F41.9 - Anxiety disorder, unspecified Qualifiers: Anxiety disorder type: generalized anxiety disorder Qualified Code(s): F41.1 - Generalized anxiety disorder (3) Peripheral neuropathy: Code(s): G62.9 - Polyneuropathy, unspecified Qualifiers: Peripheral neuropathy type: idiopathic neuropathy, unspecified Qualified Code(s): G60.9 - Hereditary and idiopathic neuropathy, unspecified (4) Essential thrombocytosis: Code(s): D47.3 - Essential (hemorrhagic) thrombocythemia (5) Other specified hypothyroidism: Code(s): E03.8 - Other specified hypothyroidism Plan Follow-up blood pressure and anxiety Blood pressure has improved by increasing atenolol 25 mg b.i.d. She is now also taking Lexapro 5 mg, patient says that she does not feel any different She is still very anxious and think a lot about her health and her who is in usp She tells me that she feels terrible about it I am increasing the Lexapro to 10 mg patient is in agreement with that She will continue both medications She is taking gabapentin only rarely for peripheral neuropathy Continue thyroid medication Platelets are stable Patient will return in 3 months for follow-up appointment Medications: Changed From atenolol 25 mg PO DAILY 90 days 90 tabs 3RF To atenolol 25 mg PO BID 180 tabs 3RF 90 days Refilled escitalopram oxalate (Lexapro) 10 mg PO DAILY 90 tabs 0RF Coding Level of Care Code Est Pt Level 3 (51788) Complex EM visit Add On G2211 Diagnoses Hypertension, essential I10 Generalized anxiety disorder F41.1 Anxiety disorder type: generalized anxiety disorder Idiopathic peripheral neuropathy G60.9 Peripheral neuropathy type: idiopathic neuropathy, unspecified Essential thrombocytosis D47.3 Other specified hypothyroidism E03.8 Additional Codes OMI-7 Assessment Billing - OMI-7 Assessment Tool: OMI-7 Assessment [id number] ([id number])
== END 2024-04-26 11:59 | disposition home or self-care (01) ==
PROVIDERS: Visit Provider Internal Medicine
DX: I10 Essential (primary) hypertension (principal); F41.1 Generalized anxiety disorder; G60.9 Hereditary and idiopathic neuropathy, unspecified; D47.3 Essential (hemorrhagic) thrombocythemia; E03.8 Other specified hypothyroidism
CPT/HCPCS: 99213; G2211

== ENCOUNTER 2024-05-05 02:55 | Emergency (ER) | payer MEDICARE, SELFPAY ==
--- NOTE | ~2024-05-05 | CT_ITS ---
EXAMINATION: CT HEAD WITHOUT CONTRAST CLINICAL INFORMATION: Dizziness COMPARISON: 04/02/2024 TECHNIQUE: Contiguous axial imaging was performed from the skull base to vertex without intravenous administration of contrast. This CT examination was performed using dose optimization techniques as appropriate, variously including the following: *Automated exposure control *Adjustment of mA and/or kV according to patient size (this includes techniques or standardized protocols for targeted exams where dose is matched to indication/reason for exam; i.e. extremities or head) *Use of iterative reconstruction technique DLP: 505 mGy-cm FINDINGS: There is no evidence of acute intracranial hemorrhage or territorial infarction. No abnormal mass-effect or midline shift is seen. [place] to white matter differentiation is well preserved. No extra-axial fluid collections are identified. The ventricles are normal in size. There is mild periventricular white matter hypoattenuation consistent with chronic small vessel ischemic disease. Mild to moderate volume loss noted. The osseous structures and soft tissues are normal. Partially opacified posterior ethmoid air cells bilaterally. The mastoid air cells are well-aerated. CT/CT head/brain wo IV con IMPRESSION: No acute intracranial pathology. Chronic small vessel ischemic disease and volume loss. Electronically signed by: Zachariah Shaffer MD 05/05/2024 05:29 AM EDT RP
--- NOTE | ~2024-05-05 | XR_ITS ---
EXAMINATION: XR CHEST CLINICAL INFORMATION: Dizziness COMPARISON: 04/02/2024 TECHNIQUE: Frontal view of the chest was obtained. FINDINGS: Lungs appear hyperinflated suggesting underlying COPD. No focal consolidation is seen. No evidence of pneumothorax, pleural effusion, or pulmonary edema. Cardiac size is within normal limits. Calcification is present at the aortic arch. No acute osseous findings are seen. XR/XR chest 1V IMPRESSION: No acute cardiopulmonary findings. Hyperinflated lungs suggesting COPD. Electronically signed by: Zachariah Shaffer MD 05/05/2024 05:22 AM EDT RP
[2024-05-05 03:00] VITALS: BP 140/88; BP 196/72; PULSE 75; PULSE 83; RESP 17; TEMP 36.8; O2SAT 96; O2SAT 97; BMI 22.0
[2024-05-05 03:08] VITALS: BP 196/72; PULSE 76; RESP 16; TEMP 36.8; O2SAT 97
--- NOTE | 2024-05-05 03:59 | ECG_ITS ---
Test Reason : NAUSEA Blood Pressure : / mmHG Vent. Rate : 071 BPM Atrial Rate : 071 BPM P-R Int : 152 ms QRS Dur : 068 ms QT Int : 392 ms P-R-T Axes : 108 178 134 degrees QTc Int : 425 ms Suspect limb lead reversal, interpretation assumes no reversal Normal sinus rhythm Right axis deviation Abnormal ECG When compared with ECG of 02-APR-2024 16:05, QRS axis Shifted right T wave inversion now evident in Lateral leads Referred By: Naina Pierce Electronically Signed By:REDDY BLANDON
[2024-05-05 04:00] VITALS: BP 206/77; PULSE 70; RESP 20; TEMP 36.6; O2SAT 96
[2024-05-05] MEDS: 0.9 % Sodium Chloride 1,000 ML 999 ML IV (04:19)
[2024-05-05 04:21] LABS: Basophils Absolute Auto 0.2 X10*3/uL (0.0-0.2); Basophils Percent Auto 1.5 % (0-2); Eosinophils Absolute Auto 0.1 X10*3/uL (0.0-0.4); Eosinophils Percent Auto 1.1 % (0-4); Hematocrit 55.4 % (37.0-47.0); Hemoglobin 18.7 g/dl (12.0-16.0); Imm Gran Abs Auto 0.06 X10*3/uL (0.00-0.03); Imm Gran Pct Auto 0.6 % (0.0-0.4); Lymphocytes Absolute Auto 0.9 X10*3/uL (1.2-4.9); Lymphocytes Percent Auto 8.2 % (20-40); Mean Corpuscular HGB Conc 33.8 g/dl (31.0-35.0); Mean Corpuscular Hemoglobin 32.6 pg (27.0-33.0); Mean Corpuscular Volume 96.5 fL (80.0-98.0); Mean Platelet Volume 9.3 fL (9.4-12.3); Monocytes Absolute Auto 0.6 X10*3/uL (0.1-1.2); Monocytes Percent Auto 5.7 % (2-11); Neutrophils Absolute Auto 8.7 x10*3/uL (2.0-8.3); Neutrophils Percent Auto 82.9 % (45-73); Platelet Count 582 X10*3/uL (160-400); Red Blood Count 5.74 X10*6/uL (4.20-5.50); Red Cell Distribution Width 16.2 % (11.0-16.0); White Blood Count 10.4 X10*3/uL (4.8-10.8)
[2024-05-05 04:22] LABS: Appearance Urine Clear; Color Urine Yellow; Glucose Urine UA Negative (Negative); Leukocyte Esterase Urine Trace (Negative); Nitrite Urine Negative (Negative); Specific Gravity - Urine 1.015 (1.005-1.025); UMIC TRIGGER UACC YES; Urine Blood Small (1+) (Negative); Urine Ketones 15 mg/dL (Negative); Urine Protein Negative (Neg-Trace)
[2024-05-05 04:22] LABS: MANUAL DIFF FLAG NO
--- NOTE | 2024-05-05 04:23 | PC.NURSE ---
Dr. Pierce aware of elevated blood pressure.
[2024-05-05 04:32] LABS: Bacteria Urine None Seen (None Seen); Hyaline Casts Urine 0-2 /LPF (0-2); Squamous Epithelial Cell Urine 0-2 /HPF (0-2); WBC Urine 0-5 /HPF (0-5)
[2024-05-05 04:39] LABS: Alanine Aminotransferase 35 U/L (0-31); Albumin Level 4.4 g/dL (3.5-5.0); Alkaline Phosphatase 63 U/L (39-117); Anion Gap 23 (12-20); Aspartate Amino Transferase 48 U/L (5-31); Bilirubin Direct 0.3 mg/dL (0.0-0.5); Bilirubin Total 0.7 mg/dL (0.0-1.0); Blood Urea Nitrogen 15 mg/dL (9-16); Calcium 9.9 mg/dL (8.4-10.2); Carbon Dioxide 17 mmol/L (22-29); Chloride 102 mmol/L (96-108); Creatinine Clr Calc Pharmacy 46.2; Estimated Glomerular Filt Rate > 60; Glucose Random 73 mg/dL (60-115); Lipase 36 U/L (8-78); Potassium 4.7 mmol/L (3.3-5.1); Sodium 137 mmol/L (135-145); Total Protein 7.3 g/dL (6.5-8.0)
[2024-05-05 04:42] LABS: B Type Natriuretic Peptide 168 pg/mL (<100)
[2024-05-05 04:50] LABS: Troponin-I High Sensitivity < 2.7 ng/L (<3.5-17.0)
--- NOTE | 2024-05-05 04:54 | ED_ITS ---
HPI - General Adult General Chief complaint: Nausea/Vomiting/Diarrhea Stated complaint: dizziness/nausea x 1.5 hrs Time Seen by Provider: 05/05/24 04:02 Source: patient, EMS and old records reviewed Mode of arrival: EMS Limitations: no limitations History of Present Illness ED Provider: DR. Pierce HPI narrative: 83-year-old female with past medical history of hypertension, thrombocytosis, hypothyroidism, anxiety, neuropathy, presented to the ED via EMS complaining of feeling dizzy and room spinning patient could not get out of bed because the dizziness was worried about falling, patient was this felt nauseous and was able to vomit. Patient with known history of high blood pressure take atenolol that was increased recently because her blood pressure was high when she was in the emergency department. Patient in the emergency department feels better, no nausea, no vomiting, feels slightly dizzy. No weakness or numbness, no abdominal pain, no nausea, vomiting. Patient had similar exact presentation last month and patient found to be hypertensive in the emergency department atenolol was increased to 25 mg twice a day. And patient was discharged home after her symptoms resolved. Related Data Home Medications ?Medication ?Instructions ?Recorded ?Confirmed aspirin 81 mg tablet,delayed 81 mg PO DAILY 09/25/20 04/26/24 release (Adult Low Dose Aspirin) Previous Rx's ?Medication ?Instructions ?Recorded levothyroxine 50 mcg tablet 50 mcg PO DAILY 90 days #90 tabs 05/18/23 gabapentin 100 mg capsule 100 mg PO BEDTIME Neuropathy #30 12/09/23 caps alendronate 70 mg tablet (Fosamax) 70 mg PO QWEEK 90 days #13 tabs 12/18/23 atenolol 25 mg tablet 25 mg PO BID 90 days #180 tabs 04/26/24 escitalopram oxalate 10 mg tablet 10 mg PO DAILY #90 tabs 04/26/24 (Lexapro) Allergies Allergy/AdvReac Type Severity Reaction Status Date / Time No Known Allergies Allergy Unknown Verified 05/05/24 03:06 Review of Systems 2 Review of Systems: All other systems are reviewed and are negative Constitutional: Reports as per HPI and Reports no additional constitutional complaints Eyes: Reports as per HPI and Reports no additional eye complaints Reports system reviewed and no additional complaints, except as documented Cardiovascular: Reports as per HPI and Reports no additional cardiovascular complaints Respiratory: Reports as per HPI and Reports no additional respiratory complaints Gastrointestinal: Reports as per HPI and Reports no additional gastrointestinal complaints Genitourinary: Reports no additional female genitourinary complaints Musculoskeletal: Reports no additional musculoskeletal complaints Skin/Breast: Reports system reviewed and no additional complaints, except as docu Psychiatric: Reports no additional psychiatric complaints Endocrine: Reports no additional endocrine complaints Hematologic/Lymphatic: Reports no additional hematologic/lymphatic complaints Allergic/Immunologic: Reports no additional allergic/immunologic complaints Reports system reviewed and no additional complaints, except as documented and Reports Abnormal speech present [facility] Past Medical History Medical History Bleeding hemorrhoids Family History Family History Father Family hx of colon cancer Social History Social History Household Members: Spouse Housing: [facility] [place] Are you a primary director of home care hospice to a significant other at home: No Do you presently have visiting nurse or other home services: No Alcohol intake: current Alcohol intake frequency: 0-2 drinks per day Alcohol type: hard liquor Patient Tobacco Use Status: Never used Tobacco Smoked in Last 30 Days: No e-Cigarette/Vaping Use: Never Used Second Hand Smoke Exposure: No Use of substances other than those prescribed or required for medical reasons: No Advance Directives: No Advance Directives Information Provided: Yes Do you have a plan to hurt others: No Plan service: No Current occupational status: retired Cognitive needs: No Hearing needs: No Vision needs: Yes Physical Exam ED Vital Signs: Vital Signs - 24 hr 05/05/24 03:00 05/05/24 03:08 05/05/24 04:00 Temperature 98.2 F 98.2 F 97.8 F Pulse Rate 75 76 70 Respiratory Rate 17 16 20 Blood Pressure 196/72 H 196/72 H 206/77 H Pulse Oximetry 96 97 96 Oxygen Delivery Method Room Air Room Air Room Air 05/05/24 05:07 05/05/24 05:49 Temperature 98.2 F Pulse Rate 82 Respiratory Rate 20 Blood Pressure 215/110 H 198/81 H Pulse Oximetry 100 Oxygen Delivery Method Room Air BMI result Body Mass Index 22.0 Vital signs have been reviewed and appear to be correct. Blood pressure elevated. Heart rate normal. Respiratory rate normal. Temperature normal. Oxygen saturation normal. Appearance: Alert. Oriented X3. No acute distress. Head: Normal external exam. Normocephalic. Atraumatic. No Alexandra signs noted. No raccoon eyes noted Eyes: PERRLA. EOMI. Conjunctiva and sclera normal. Eyelids normal. ENT: TM's Normal. Pharynx normal. Uvula midline. Moist mucous membranes. No trismus noted. No drooling noted. No muffled voice noted. Neck: Normal inspection. Neck supple. FROM. No adenopathy. Thyroid Normal. No meningeal signs. No neck mass noted. CVS: Normal heart rate and rhythm. Heart sound normal. No murmurs noted. Pulses normal throughout. Respiratory: No respiratory distress. Painless inspiration. Breath sounds normal. No wheezes/rales/rhonchi noted. Chest nontender. No accessory muscle usage noted or decreased air movement noted. Abdomen: Soft and nontender. Bowel sounds normal in all 4 quadrants. No distention noted. No organomegaly noted. No visible injury noted. Back: No CVA tenderness. Full range of motion noted. Skin: Skin warm and dry. Normal skin color. Normal skin turgor. No rashes/lesions/lacerations noted. Extremities: No lower extremity edema. Extremities exhibit normal range of motion. Extremities nontender. Neuro: Oriented X 3. Cranial nerve exam: II-XII are grossly intact No motor deficit. No sensory deficit. Reflexes normal. Course Reevaluation(s) Reevaluation #1: 83-year-old female came in after felt dizzy, room spinning with nausea, patient was known to have high blood pressure takes atenolol 25 mg b.i.d. that was recently increased when the patient had similar presentation and elevated blood pressure a month ago when she was in the emergency department. Patient stated that she is a nervous and anxious person especially when she come to the hospital, no chest pain, no shortness of breath, no headache, no dizziness, labs at baseline, patient was instructed to follow-up with her PCP. Patient is calling his neighbor to come and pick her up from the hospital. Time: 06:32 Medications Administered Discontinued Medications Generic Name Dose Route Start Last Admin Trade Name Freq PRN Reason Stop Dose Admin Amlodipine Besylate 5 mg 05/05/24 04:59 05/05/24 05:07 Amlodipine Besylate 5 Mg Tablet PO 05/05/24 05:00 5 mg ONCE ONE Administration Protocol Sodium Chloride 1,000 mls @ 999 mls/hr 05/05/24 03:59 05/05/24 05:52 Ns IV 05/05/24 04:59 Infused .Q1H1M ONE Infusion Ondansetron HCl 4 mg 05/05/24 03:59 05/05/24 05:08 Ondansetron Hcl 4 Mg/2 Ml Vial IVPUSH 05/05/24 04:00 Not Given ONCE ONE Medical Decision Making Differential Diagnosis Differential Diagnoses: The differential diagnosis associated with the presentation includes (Peripheral vertigo, intracranial pathology, severe anemia, dehydration, electrolyte derangement, ACS.) Admission/Observation Consideration of admission/observation: Escalation of care including admission/observation considered Lab Data MDM Lab Attestation statement: I reviewed the patient's lab results. 05/05/24 04:14 05/05/24 04:14 Labs: Lab Results 05/05/24 05/05/24 Range/Units 04:14 04:16 WBC 10.4 (4.8-10.8) X10*3/uL RBC 5.74 H (4.20-5.50) X10*6/uL Hgb 18.7 H (12.0-16.0) g/dl Hct 55.4 H (37.0-47.0) % MCV 96.5 (80.0-98.0) fL MCH 32.6 (27.0-33.0) pg MCHC 33.8 (31.0-35.0) g/dl RDW 16.2 H (11.0-16.0) % Plt Count 582 H (160-400) X10*3/uL MPV 9.3 L (9.4-12.3) fL Immature Gran % (Auto) 0.6 H (0.0-0.4) % Neut % (Auto) 82.9 H (45-73) % Lymph % (Auto) 8.2 L (20-40) % [place] % (Auto) 5.7 (2-11) % Eos % (Auto) 1.1 (0-4) % Baso % (Auto) 1.5 (0-2) % Lymph # (Auto) 0.9 L (1.2-4.9) X10*3/uL [place] # (Auto) 0.6 (0.1-1.2) X10*3/uL Eos # (Auto) 0.1 (0.0-0.4) X10*3/uL Baso # (Auto) 0.2 (0.0-0.2) X10*3/uL Abs Immat Gran (auto) 0.06 H (0.00-0.03) X10*3/uL Absolute Neuts (auto) 8.7 H (2.0-8.3) x10*3/uL Absolute Nucleated RBC 0.000 (0.0-0.012) X10*3/uL Nucleated RBC % (auto) 0.0 (0.0-0.2) /100WBC Sodium 137 (135-145) mmol/L Potassium 4.7 (3.3-5.1) mmol/L Chloride 102 (96-108) mmol/L Carbon Dioxide 17 L (22-29) mmol/L Anion Gap 23 H (12-20) BUN 15 (9-16) mg/dL Creatinine 0.79 (0.5-1.4) mg/dL Estim Creat Clear Calc 46.2 Estimated GFR > 60 Random Glucose 73 (60-115) mg/dL Calcium 9.9 (8.4-10.2) mg/dL Total Bilirubin 0.7 (0.0-1.0) mg/dL Direct Bilirubin 0.3 (0.0-0.5) mg/dL AST 48 H (5-31) U/L ALT 35 H (0-31) U/L Alkaline Phosphatase 63 (39-117) U/L Troponin I High Sens < 2.7 D (<3.5-17.0) ng/L B-Natriuretic Peptide 168 H (<100) pg/mL Total Protein 7.3 (6.5-8.0) g/dL Albumin 4.4 (3.5-5.0) g/dL Lipase 36 (8-78) U/L Urine Color Yellow Urine Appearance Clear Urine pH 6.0 (5.0-9.0) Ur Specific [place] 1.015 (1.005-1.025) Urine Protein Negative (Neg-Trace) mg/dL Urine Glucose (UA) Negative (Negative) mg/dL Urine Ketones 15 (Negative) mg/dL Urine Blood Small (1+) H (Negative) Urine Nitrite Negative (Negative) Ur Leukocyte Esterase Trace H (Negative) Urine RBC 3-5 H (0-2) /HPF Urine WBC 0-5 (0-5) /HPF Ur Squamous Epith Cells 0-2 (0-2) /HPF Urine Bacteria None Seen (None Seen) Hyaline Casts 0-2 (0-2) /LPF Influenza Type A (PCR) NEGATIVE (Negative) Influenza Type B (PCR) NEGATIVE (Negative) RSV RNA Qual (PCR) NEGATIVE (Negative) SARS-CoV-2 RNA (RT-PCR) NEGATIVE (Negative) Independent Interpretation I performed an independent interpretation of an: EKG (Normal sinus rhythm at 71 beats per minutes, normal intervals, no ST-T change, no significant change from previous EKG.), Plain X-Ray (Chest: No acute intrathoracic pathology.) and CT Scan (Head: No acute intracranial pathology.) Radiology Impression Discussion of test interpretation with radiology: I have reviewed the radiologist's reading. Discharge Plan Discharge Clinical Impression: Vertigo, Hypertension Patient Disposition: Home, Self-Care Instructions: Hypertension (ED), Vertigo (ED) Prescriptions: No Action levothyroxine 50 mcg tablet 50 mcg PO DAILY 90 Days Qty: 90 3RF alendronate [Fosamax] 70 mg tablet 70 mg PO QWEEK 90 Days Qty: 13 1RF aspirin [Adult Low Dose Aspirin] 81 mg tablet,delayed release (DR/EC) 81 mg PO DAILY gabapentin 100 mg capsule 100 mg PO BEDTIME Qty: 30 0RF escitalopram oxalate [Lexapro] 10 mg tablet 10 mg PO DAILY Qty: 90 0RF atenolol 25 mg tablet 25 mg PO BID 90 Days Qty: 180 3RF Print Language: Icelandic
[2024-05-05 05:07] VITALS: BP 215/110
[2024-05-05 05:07] LABS: Influenza A PCR NEGATIVE (Negative); Influenza B PCR NEGATIVE (Negative); Resp Syncy Virus RNA Qual PCR NEGATIVE (Negative); SARS COV2 PCR INHOUSE NEGATIVE (Negative)
[2024-05-05] MEDS: amLODIPine Besylate 5 MG TABLET PO (05:07)
[2024-05-05 05:49] VITALS: BP 198/81; PULSE 82; RESP 20; TEMP 36.8; O2SAT 100
--- NOTE | 2024-05-05 06:04 | PC.NURSE ---
patient remains hypertensive, Dr. Pierce aware and encouraged patient to follow up with primary care. Patient is asymptomatic
[2024-05-05 06:48] VITALS: BP 199/93; PULSE 82; RESP 17; TEMP 36.8; O2SAT 100
== END 2024-05-05 06:49 | disposition home or self-care (01) ==
PROVIDERS: Emergency Provider Emergency Medicine
DX: R42 Dizziness and giddiness (principal); I10 Essential (primary) hypertension; Z03.818 Encounter for observation for suspected exposure to other biological agents ruled out; R11.0 Nausea; Z79.82 Long term (current) use of aspirin; Z79.899 Other long term (current) drug therapy
CPT/HCPCS: 0241U; 70450; 71045; 80048; 80076; 81001; 83690; 83880; 84484; 85025; 93005; 96360; 96361; 99284; 99285

== ENCOUNTER 2024-08-02 12:35 | Emergency (ER) | payer MEDICARE, SELFPAY ==
[2024-08-02] VITALS (12 sets, daily range): BP systolic 165–226; BP diastolic 59–93; PULSE 80–99; RESP 16–20; TEMP 36.7–37.2; O2SAT 94–99; BMI 21.1
--- NOTE | ~2024-08-02 | CT_ITS ---
EXAMINATION: CT head/brain wo IV con CLINICAL INFORMATION: ams COMPARISON: CT head 05/05/2024 TECHNIQUE: Contiguous axial imaging was performed from the skull base to vertex without intravenous contrast. This CT examination was performed using dose optimization techniques as appropriate, variously including the following: * Automated exposure control * Adjustment of mA and/or kV according to patient size (this includes techniques or standardized protocols for targeted exams where dose is matched to indication/reason for exam; i.e. extremities or head) * Use of iterative reconstruction technique DLP: 532 mGy-cm. FINDINGS: There is no evidence of acute intracranial hemorrhage or territorial infarction. [place] to white matter differentiation is well preserved. No abnormal mass effect or midline shift is seen. No extra-axial fluid collections are identified. No hydrocephalus. Proportional prominence of the ventricles and sulcal spaces is consistent with moderate volume loss. Patchy periventricular and deep white matter hypoattenuation is consistent with moderate small vessel ischemic changes. The cerebellar tonsils are well positioned. No acute osseous or soft tissue abnormality. Bilateral lens extraction. Scattered mucoperiosteal thickening in the ethmoid air cells. The remaining visualized paranasal sinuses and mastoid air cells are well-aerated. CT/CT head/brain wo IV con IMPRESSION: 1. No acute intracranial pathology. 2. 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 Electronically signed by: Deepti Engel DO 08/02/2024 04:54 PM [facility]
--- NOTE | 2024-08-02 13:14 | ECG_ITS ---
Test Reason : ARRYTHMIA Blood Pressure : / mmHG Vent. Rate : 076 BPM Atrial Rate : 076 BPM P-R Int : 154 ms QRS Dur : 070 ms QT Int : 366 ms P-R-T Axes : 064 012 062 degrees QTc Int : 411 ms Normal sinus rhythm with sinus arrhythmia Normal ECG When compared with ECG of 05-MAY-2024 04:02, QRS axis Shifted left Referred By: Anitra Delgado Electronically Signed By:Fan Escalera
--- NOTE | 2024-08-02 13:18 | ED.WEAKNESS ---
HPI - Weakness General Chief complaint: Weakness Stated complaint: WEAKNESS,?ANXIETY ATTACK PER EMS Time Seen by Provider: 08/02/24 17:57 Source: patient, RN notes reviewed and old records reviewed Mode of arrival: EMS Limitations: no limitations History of Present Illness ED Provider: Betsy TOURE Narrative: 83-year-old female with past medical history significant for hypertension, thrombocytosis, hypothyroidism, anxiety, neuropathy presents for evaluation of ?feeling off. ? Patient reports that a few hours prior to arrival she ?felt weird. She reports that she had some dizziness She reports that she felt somewhat confused She did not have any pain. She asked her neighbor to call 911 because she did not like the way she felt Currently the patient has no complaints and reports that she feels back to her baseline She was not sure when her symptoms resolved She did not have any difficulty with speech, blurry vision, or focal weakness. The patient reports that she has been compliant with all her medications including her atenolol which she takes for blood pressure. Her current blood pressure is 226/93 but she denies any headache Related Data Home Medications ?Medication ?Instructions ?Recorded ?Confirmed aspirin 81 mg tablet,delayed 81 mg PO DAILY 09/25/20 04/26/24 release (Adult Low Dose Aspirin) Previous Rx's ?Medication ?Instructions ?Recorded alendronate 70 mg tablet (Fosamax) 70 mg PO QWEEK 90 days #13 tabs 12/18/23 atenolol 25 mg tablet 25 mg PO BID 90 days #180 tabs 04/26/24 escitalopram oxalate 10 mg tablet 10 mg PO DAILY #90 tabs 04/26/24 (Lexapro) levothyroxine 50 mcg tablet 50 mcg PO DAILY 90 days #90 tabs 05/18/24 gabapentin 100 mg capsule 100 mg PO BEDTIME for neuropathy 07/17/24 #30 caps atenolol 50 mg tablet (Tenormin) 50 mg PO BID #60 tabs 08/02/24 Allergies Allergy/AdvReac Type Severity Reaction Status Date / Time No Known Allergies Allergy Unknown Verified 08/02/24 13:12 Review of Systems Constitutional: Constitutional: Denies body ache(s), Denies chills, Denies fever(s) and Denies headache(s) Eyes: Eyes: Denies blurry vision ENT: Reports vertigo, Denies dizziness and Denies headache(s) Cardiovascular: Cardiovascular: Denies chest pain and Denies dyspnea Respiratory: Respiratory: Denies cough and Denies dyspnea Gastrointestinal: Gastrointestinal: Denies abdominal pain, Denies nausea and Denies vomiting Musculoskeletal: Musculoskeletal: Denies back pain Integumentary/Breasts: Skin/Breast: Denies rash Neurologic: Reports vertigo, Denies dizziness and Denies headache(s) Psychiatric: Psychiatric: Reports anxiety and Denies suicidal ideation [facility] Past Medical History Medical History Bleeding hemorrhoids Family History Family History Father Family hx of colon cancer Social History Social History Household Members: Spouse Housing: [facility] Are you a primary healthcare representative to a significant other at home: No Do you presently have visiting nurse or other home services: No Alcohol intake: current Alcohol intake frequency: 0-2 drinks per day Alcohol type: hard liquor Patient Tobacco Use Status: Never used Tobacco Smoked in Last 30 Days: No e-Cigarette/Vaping Use: Never Used Second Hand Smoke Exposure: No Use of substances other than those prescribed or required for medical reasons: No Advance Directives: Yes Advance Directives on File: Yes Advance Directives Date on File: 12/10/23 Do you have a plan to hurt others: No Plan service: No Current occupational status: retired Cognitive needs: No Hearing needs: No Vision needs: Yes Physical Exam Vital Signs: Vital Signs: Last Vital Signs Temp 98.7 F 08/02/24 17:56 Pulse 88 08/02/24 20:14 Resp 18 08/02/24 20:14 BP 170/66 H 08/02/24 20:14 Pulse Ox 99 08/02/24 20:14 O2 Del Method Room Air 08/02/24 20:14 BMI result Body Mass Index 21.1 Const: General: healthy appearing, comfortable, no acute distress, alert and awake Nutritional Appearance: well nourished Orientation/consciousness: patient oriented x3 HEENT: Head: Yes normocephalic and Yes atraumatic Eyes: Eyelids: Yes eyelids normal Conjunctivae: conjunctivae normal Sclerae: sclerae normal Corneas: corneas normal Pupils: Equal, round and reactive pupils present EOM: EOMs intact bilaterally Neck: Neck: Yes full ROM Resp: Effort & Inspection: normal respiratory effort, able to speak in complete sentences, no audible wheezes and not labored Auscultation: clear to auscultation bilaterally Cardio: Rate: regular rate Rhythm: regular rhythm GI: Inspection: No distended Palpation (GI): Soft to palpation, not firm, nontender, no guarding and not rigid Skin: General skin exam: elasticity normal Neuro: General: patient oriented x3 Cranial nerves: Yes CN's II-XII intact bilaterally, Yes Equal, round and reactive pupils present and Yes Bilaterally intact EOM present Cognition (Neuro): normal cognition Course Course Course Narrative: This is a rapid medical exam performed by Anitra Delgado PA-C. The patient is 83-year-old female with a history of anxiety disorder poorly controlled hypertension, arthritis with peripheral neuropathy, who presents with confusion and weakness. Patient states ?I just do not feel right?. She states she feels ?jittery?. Patient states she feels generalized weakness from her baseline. On exam she is neurologically intact, alert and oriented x3. We will be screening basic labs, urinalysis and a CT of the brain given her report of confusion. She is hypertensive at this time, we will have her return to the waiting room pending her full medical assessment. Reevaluation(s) Reevaluation #1: Patient's blood pressure improved to 170/66, she will be discharged at this time, she will be instructed to increase her atenolol to 50 mg b.i.d. she remains awake, alert and oriented Time: 20:17 Medications Administered Discontinued Medications Generic Name Dose Route Start Last Admin Trade Name Freq PRN Reason Stop Dose Admin Labetalol HCl 10 mg 08/02/24 18:13 08/02/24 18:44 Labetalol Hcl 100 Mg/20 Ml Vial IVPUSH 08/02/24 18:14 10 mg ONCE ONE Administration Labetalol HCl 20 mg 08/02/24 19:28 08/02/24 19:34 Labetalol Hcl 100 Mg/20 Ml Vial IVPUSH 08/02/24 19:29 20 mg ONCE ONE Administration Medical Decision Making Medical Decision Making MDM Narrative: 83-year-old female with past medical history as documented above presents for evaluation of feeling off. ? She is neurologically intact. She is quite hypertensive currently 226/93. She reports that she has been compliant with her atenolol. Denies any chest pain, she had labs, EKG, head CT scan all of which was ordered in triage. The patient has a slightly elevated leukocytosis to 11.0 which appears to be consistent with her baseline. Her hemoglobin hematocrit are also elevated to 17.0 and 50.8 respectively. The patient has a history of thrombocytosis platelet count is 849k. Chemistries have no significant abnormalities warranting intervention. EKG shows a normal sinus rhythm with a rate of 76 beats minute. No ischemic changes. The patient's CT scan of the brain did not show any acute abnormalities. The patient has a history of vertigo as well as hypertensive urgency in her symptoms may be related to a combination of both. We will treat her blood pressure with labetalol Differential Diagnosis Differential Diagnoses: The differential diagnosis associated with the presentation includes Hypertensive urgency Hypertensive emergency Vertigo CVA less likely Intracranial hemorrhage Admission/Observation Consideration of admission/observation: Escalation of care including admission/observation considered Consider admission due to hypertensive urgency Lab Data MDM Lab Attestation statement: I reviewed the patient's lab results. See above 08/02/24 13:46 08/02/24 13:46 Labs: Lab Results 08/02/24 Range/Units 13:46 WBC 11.0 H (4.8-10.8) X10*3/uL RBC 5.17 (4.20-5.50) X10*6/uL Hgb 17.0 H (12.0-16.0) g/dl Hct 50.8 H (37.0-47.0) % MCV 98.3 H (80.0-98.0) fL MCH 32.9 (27.0-33.0) pg MCHC 33.5 (31.0-35.0) g/dl RDW 16.5 H (11.0-16.0) % Plt Count 849 H D (160-400) X10*3/uL MPV 9.6 (9.4-12.3) fL Immature Gran % (Auto) 0.6 H (0.0-0.4) % Neut % (Auto) 78.2 H (45-73) % Lymph % (Auto) 10.7 L (20-40) % [place] % (Auto) 7.8 (2-11) % Eos % (Auto) 1.2 (0-4) % Baso % (Auto) 1.5 (0-2) % Lymph # (Auto) 1.2 (1.2-4.9) X10*3/uL [place] # (Auto) 0.9 (0.1-1.2) X10*3/uL Eos # (Auto) 0.1 (0.0-0.4) X10*3/uL Baso # (Auto) 0.2 (0.0-0.2) X10*3/uL Abs Immat Gran (auto) 0.07 H (0.00-0.03) X10*3/uL Absolute Neuts (auto) 8.6 H (2.0-8.3) x10*3/uL Absolute Nucleated RBC 0.000 (0.0-0.012) X10*3/uL Nucleated RBC % (auto) 0.0 (0.0-0.2) /100WBC Sodium 139 (135-145) mmol/L Potassium 4.4 (3.3-5.1) mmol/L Chloride 105 (96-108) mmol/L Carbon Dioxide 26 (22-29) mmol/L Anion Gap 12 (12-20) BUN 18 H (9-16) mg/dL Creatinine 0.85 (0.5-1.4) mg/dL Estim Creat Clear Calc 42.9 Estimated GFR > 60 Random Glucose 100 (60-115) mg/dL Calcium 9.8 (8.4-10.2) mg/dL Magnesium 2.2 (1.6-2.6) mg/dL Total Bilirubin 0.3 (0.0-1.0) mg/dL AST 42 H (5-31) U/L ALT 46 H (0-31) U/L Alkaline Phosphatase 63 (39-117) U/L Total Protein 7.0 (6.5-8.0) g/dL Albumin 4.5 (3.5-5.0) g/dL Urine Color Yellow Urine Appearance Clear Urine pH 5.0 (5.0-9.0) Ur Specific [place] 1.010 (1.005-1.025) Urine Protein Negative (Neg-Trace) mg/dL Urine Glucose (UA) Negative (Negative) mg/dL Urine Ketones Negative (Negative) mg/dL Urine Blood Negative (Negative) Urine Nitrite Negative (Negative) Ur Leukocyte Esterase Negative (Negative) Independent Interpretation I performed an independent interpretation of an: EKG (See above) Radiology Impression Discussion of test interpretation with radiology: I have reviewed the radiologist's reading. Radiologist Impression: FINDINGS: There is no evidence of acute intracranial hemorrhage or territorial infarction. [place] to white matter differentiation is well preserved. No abnormal mass effect or midline shift is seen. No extra-axial fluid collections are identified. No hydrocephalus. Proportional prominence of the ventricles and sulcal spaces is consistent with moderate volume loss. Patchy periventricular and deep white matter hypoattenuation is consistent with moderate small vessel ischemic changes. The cerebellar tonsils are well positioned. No acute osseous or soft tissue abnormality. Bilateral lens extraction. Scattered mucoperiosteal thickening in the ethmoid air cells. The remaining visualized paranasal sinuses and mastoid air cells are well-aerated. CT/CT head/brain wo IV con IMPRESSION: 1. No acute intracranial pathology. 2. 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 Electronically signed by: Deepti Engel DO 08/02/2024 04:54 PM [facility] Chronic Conditions Patient?s care impacted by: Hypertension Discharge Plan Discharge Clinical Impression: Hypertensive urgency Patient Disposition: Home, Self-Care Instructions: Hypertensive Crisis (ED) Additional Instructions: Your workup in the ER today was reassuring. Your blood pressure was quite elevated. I recommend that you increase your atenolol to 50 mg twice a day until you can follow-up with your primary doctor Return for new or worsening symptoms Prescriptions: New atenolol [Tenormin] 50 mg tablet 50 mg PO BID Qty: 60 0RF No Action alendronate [Fosamax] 70 mg tablet 70 mg PO QWEEK 90 Days Qty: 13 1RF levothyroxine 50 mcg tablet 50 mcg PO DAILY 90 Days Qty: 90 0RF gabapentin 100 mg capsule 100 mg PO BEDTIME Qty: 30 0RF aspirin [Adult Low Dose Aspirin] 81 mg tablet,delayed release (DR/EC) 81 mg PO DAILY escitalopram oxalate [Lexapro] 10 mg tablet 10 mg PO DAILY Qty: 90 0RF atenolol 25 mg tablet 25 mg PO BID 90 Days Qty: 180 3RF Print Language: Turkish
[2024-08-02 13:57] LABS: MANUAL DIFF FLAG NO
[2024-08-02 13:59] LABS: Basophils Absolute Auto 0.2 X10*3/uL (0.0-0.2); Basophils Percent Auto 1.5 % (0-2); Eosinophils Absolute Auto 0.1 X10*3/uL (0.0-0.4); Eosinophils Percent Auto 1.2 % (0-4); Hematocrit 50.8 % (37.0-47.0); Imm Gran Abs Auto 0.07 X10*3/uL (0.00-0.03); Imm Gran Pct Auto 0.6 % (0.0-0.4); Lymphocytes Absolute Auto 1.2 X10*3/uL (1.2-4.9); Lymphocytes Percent Auto 10.7 % (20-40); Mean Corpuscular HGB Conc 33.5 g/dl (31.0-35.0); Mean Corpuscular Hemoglobin 32.9 pg (27.0-33.0); Mean Corpuscular Volume 98.3 fL (80.0-98.0); Mean Platelet Volume 9.6 fL (9.4-12.3); Monocytes Absolute Auto 0.9 X10*3/uL (0.1-1.2); Monocytes Percent Auto 7.8 % (2-11); Neutrophils Absolute Auto 8.6 x10*3/uL (2.0-8.3); Neutrophils Percent Auto 78.2 % (45-73); Platelet Count 849 X10*3/uL (160-400); Red Blood Count 5.17 X10*6/uL (4.20-5.50); Red Cell Distribution Width 16.5 % (11.0-16.0)
[2024-08-02 14:05] LABS: Appearance Urine Clear; Color Urine Yellow; Glucose Urine UA Negative (Negative); Leukocyte Esterase Urine Negative (Negative); Nitrite Urine Negative (Negative); Urine Blood Negative (Negative); Urine Ketones Negative (Negative); Urine Protein Negative (Neg-Trace)
[2024-08-02 14:20] LABS: Alanine Aminotransferase 46 U/L (0-31); Albumin Level 4.5 g/dL (3.5-5.0); Alkaline Phosphatase 63 U/L (39-117); Anion Gap 12 (12-20); Aspartate Amino Transferase 42 U/L (5-31); Bilirubin Total 0.3 mg/dL (0.0-1.0); Blood Urea Nitrogen 18 mg/dL (9-16); Calcium 9.8 mg/dL (8.4-10.2); Carbon Dioxide 26 mmol/L (22-29); Chloride 105 mmol/L (96-108); Creatinine Clr Calc Pharmacy 42.9; Estimated Glomerular Filt Rate > 60; Glucose Random 100 mg/dL (60-115); Magnesium 2.2 mg/dL (1.6-2.6); Potassium 4.4 mmol/L (3.3-5.1); Sodium 139 mmol/L (135-145)
[2024-08-02] MEDS: Labetalol HCL 100 MG/20 ML VIAL 10 MG IVPUSH (18:44)
--- NOTE | 2024-08-02 18:49 | PC.NURSE ---
patient a&ox3, iv inserted, labs previously drawn, director cardiac applied- nsr on monitor, pt noted to be hypertensive- pt was medicated for htn per order, swallow eval done-pass, pt has no notable neuro deficites- has equal soda drier feeder strength and equal leg strength, smile is symmetrical. pt currently denying pain/discomfort, rr equal/non labored, call leal within reach, will continue to monitor
[2024-08-02] MEDS: Labetalol HCL 100 MG/20 ML VIAL 20 MG IVPUSH (19:34)
== END 2024-08-02 20:51 | disposition home or self-care (01) ==
PROVIDERS: Physician Assistant Medical; Emergency Provider Emergency Medicine Emergency Medical Services; PCP Internal Medicine
DX: I16.0 Hypertensive urgency (principal); R41.82 Altered mental status, unspecified; I49.8 Other specified cardiac arrhythmias; Z79.899 Other long term (current) drug therapy
CPT/HCPCS: 36415; 70450; 80053; 81003; 83735; 85025; 93005; 96374; 96376; 99284; 99285; J1920

== ENCOUNTER → 2024-08-02 13:14 | Outpatient (BNV) | payer MEDICARE, SELFPAY | PROVIDERS: Visit Provider Internal Medicine Cardiovascular Disease | DX: I49.9 Cardiac arrhythmia, unspecified (principal) | CPT/HCPCS: 93010 ==

== ENCOUNTER 2024-08-12 12:42 | Outpatient (AMB) | payer MEDICARE, SELFPAY ==
[2024-08-12 12:44] VITALS: BP 138/86; PULSE 78; O2SAT 99; BMI 21.1
--- NOTE | 2024-08-12 12:44 | MHC.PC.OV ---
Vital Signs 08/12/24 12:44 Height 5 ft 3 in Weight 119 lb BMI 21.1 BP 138/86 Blood Pressure Location Rt brachial Position Sitting Pulse 78 Pulse Source Pulse Oximeter Pulse Oximetry (%) 99 Oxygen Delivery Method Room Air Intake Visit Reasons: Rsched from 07/27 3M follow up Allergies No Known Allergies Allergy (Unknown, Verified 08/12/24 12:46) Medication List - Last Reconciled 08/12/24 by Chuck Morris MD alendronate (Fosamax) 70 mg PO QWEEK 90 days aspirin (Adult Low Dose Aspirin) 81 mg PO DAILY atenolol 25 mg PO BID 90 days gabapentin 100 mg PO BEDTIME levothyroxine 50 mcg PO DAILY 90 days Tobacco use date assessed: 04/26/24 Fall risk assessment: 1 Fall in past year Last assessed Fall Risk: 08/12/24 Dental Screening Dental Screen Date: 04/26/24 HPI Rsched from 07/27 3M follow up HPI Details Chief Complaint Persistent knee pain and elevated blood pressure. Presented to [facility] early this due to elevated blood pressure Assessment and Plan 83 year old female with a history of osteoarthritis and hypertension presenting with persistent knee pain and difficulty in managing blood pressure. The patient describes an episode of migraine with visual aura, leading to a temporary loss of vision and subsequent confusion. Her osteoarthritis has been exacerbated by recent strain, although imaging has ruled out acute injury. She experienced a significant episode which required hospital evaluation, during which her blood pressure was elevated, leading to the use of intravenous labetalol. Her recent thrombocytosis is consistent with past levels. The patient chooses not to increase atenolol dosage despite previous emergency room recommendations, citing hypotension concerns. She has also stopped Lexapro that she was taking for anxiety 1. Thrombocytosis Platelet count remains elevated but stable. Continue regular monitoring. No immediate intervention required. 2. Osteoarthritis Continue management with acetaminophen for pain relief and avoid straining knees. No adjustment in medication currently, although consideration for alternative analgesics may be warranted if pain persists. 3. History Of Vertigo Although not currently symptomatic, patient to remain cautious of any vertiginous episodes and report if they recur. Maintain hydration and consider vestibular exercises if necessary. 4. Migraine With Visual Aura Reassurance provided regarding silent migraines causing temporary visual disturbances. Monitoring recommended and seek care if episodes increase in frequency or severity. 5. Essential Hypertension Monitor blood pressure regularly, continue atenolol 25 mg daily, and consider adjusting dose based on home blood pressure readings. Patient advised to take additional dose if systolic blood pressure remains elevated. Diagnostic results - Labs: Slightly elevated white blood cell count, hemoglobin level at 17, platelet count at 849. - Tests: Normal sinus rhythm with rate of 76 bpm on EKG, no ischemic changes. - Diagnostics: CT scan of brain showed no acute abnormalities. Problem List - Osteoarthritis - Essential Hypertension - Migraine with visual aura - Thrombocytosis - History of vertigo Medications - Acetaminophen 325 mg as needed for osteoarthritis pain - Atenolol 25 mg once daily for hypertension Patient Instructions - Continue taking acetaminophen for osteoarthritis pain relief as needed. - Monitor your blood pressure regularly at home. Take an extra dose of atenolol only if advised by your blood pressure readings and it goes significantly high. - Manage migraine episodes by rest and reassurance, but seek medical attention if visual disturbances worsen or are accompanied by new symptoms. - Report any symptoms of dizziness or vertigo. Keep hydrated. - Follow up in November as scheduled, or sooner if health issues arise. [facility] Medical History Bleeding hemorrhoids Family History Father Family hx of colon cancer Social History Household Members: [facility] Are you a primary physician assistant primary care to a significant other at home: No Do you presently have visiting nurse or other home services: No Alcohol intake: current Alcohol intake frequency: 0-2 drinks per day Alcohol type: hard liquor Patient Tobacco Use Status: Never used Tobacco e-Cigarette/Vaping Use: Never Used Second Hand Smoke Exposure: No Advance Directives Date on File: 12/10/23 service: No Current occupational status: retired Cognitive needs: No Hearing needs: No Vision needs: Yes Questionnaire Thrive Questionnaire Date Thrive assessed: 04/05/24 I am a: Patient What is your living situation today?: I have a steady place to live Within the past 12 months, did the food you bought not last and you didn't have the money to get more?: Never true Within the past 12 months, did you worry whether your food would run out before you got money to buy more?: Never true Do you have trouble paying for medicines?: No Do you have trouble getting transportation to medical appointments?: No Do you have trouble paying your heating and electricity bill?: No Do you have trouble taking care of your child, family member or friend?: No Do you have trouble with day-to-day activities such as bathing, preparing meals, shopping, managing finances, etc.?: No Are you currently unemployed and looking for a job?: No Are you interested in more education?: No Please select the resources that you would like help with: Transportation Currently or been in a relationship where the following occur: No concerns reported THRIVE Score: 0 OMI-7 AMB Questionnaire OMI-7 Date OMI - 7 assessed: 04/26/24 Source: Developed by Drs. Saleem Stein, Paola Pool, Meek Bocanegra and colleagues, with an educational madhavi from [employer]. Review of Systems Const Denies chills and Denies fever(s) ENT Denies epistaxis and Denies nasal discharge Card Denies chest pain Resp Denies chest congestion, Denies cough and Denies hemoptysis GI Denies diarrhea and Denies nausea Skin/Breast Denies rash Neuro Reports no additional complaints Psych Reports no additional complaints Endo Reports no additional complaints Physical exam (Primary Care) Vital Signs: Last Vital Signs Pulse 78 08/12/24 12:44 BP 138/86 08/12/24 12:44 Pulse Ox 99 08/12/24 12:44 Oxygen Delivery Method Room Air 08/12/24 12:44 BMI result Body Mass Index 21.1 Tobacco/Smoking Status: Tobacco use Status Tobacco use date assessed 04/26/24 08/12/24 12:48 Patient Tobacco Use Status Never used Tobacco 08/12/24 12:48 e-Cigarette/Vaping Use Never Used 08/12/24 12:48 Thrive Assessment: Date of Thrive Assessment Date Thrive assessed 04/05/24 08/12/24 12:48 Currently or been in a relationship where the following occur: No concerns reported Const General: cooperative, comfortable and no acute distress Orientation/consciousness: patient oriented x3 HENMT Head: Yes normocephalic Eyes General: appearance normal, both eyes and all related structures Neck Neck: Yes supple Resp Effort & Inspection: normal respiratory effort, no cough and no stridor Cardio Rhythm: regular rhythm Heart sounds: S1 normal heart sound present and S2 normal heart sound present Skin General skin exam: turgor normal Neuro General: patient oriented x3, tone normal and moves all extremities Extrem Other: Both knees is full range of motion, no swelling noted Right lower extremity: no edema Left lower extremity: no edema Coding Level of Care Code Est Pt Level 4 (09889) Diagnoses Hospital discharge follow-up Z09 Hypertension, essential I10 Thrombocytosis D47.3 Other specified hypothyroidism E03.8 Anxiety, generalized F41.1 Chronic pain of both knees M25.561; M25.562; G89.29 Chronicity: chronic Idiopathic peripheral neuropathy G60.9 Peripheral neuropathy type: idiopathic neuropathy, unspecified Assessment & Plan Assessment & Plan (1) Hospital discharge follow-up: Code(s): Z09 - Encounter for follow-up examination after completed treatment for conditions other than malignant neoplasm Category: Medical (2) Hypertension, essential: Code(s): I10 - Essential (primary) hypertension Category: Medical (3) Thrombocytosis: Code(s): D47.3 - Essential (hemorrhagic) thrombocythemia Category: Medical (4) Other specified hypothyroidism: Code(s): E03.8 - Other specified hypothyroidism Category: Medical (5) Anxiety, generalized: Code(s): F41.1 - Generalized anxiety disorder Category: Medical (6) Bilateral knee pain: Code(s): M25.561 - Pain in right knee; M25.562 - Pain in left knee Category: Medical Qualifiers: Chronicity: chronic Qualified Code(s): M25.561 - Pain in right knee; M25.562 - Pain in left knee; G89.29 - Other chronic pain (7) Peripheral neuropathy: Code(s): G62.9 - Polyneuropathy, unspecified Category: Medical Qualifiers: Peripheral neuropathy type: idiopathic neuropathy, unspecified Qualified Code(s): G60.9 - Hereditary and idiopathic neuropathy, unspecified Plan Chief Complaint Persistent knee pain and elevated blood pressure. Presented to [facility] early this due to elevated blood pressure Assessment and Plan 83 year old female with a history of osteoarthritis and hypertension presenting with persistent knee pain and difficulty in managing blood pressure. The patient describes an episode of migraine with visual aura, leading to a temporary loss of vision and subsequent confusion. Her osteoarthritis has been exacerbated by recent strain, although imaging has ruled out acute injury. She experienced a significant episode which required hospital evaluation, during which her blood pressure was elevated, leading to the use of intravenous labetalol. Her recent thrombocytosis is consistent with past levels. The patient chooses not to increase atenolol dosage despite previous emergency room recommendations, citing hypotension concerns. She has also stopped Lexapro that she was taking for anxiety 1. Thrombocytosis Platelet count remains elevated but stable. Continue regular monitoring. No immediate intervention required. 2. Osteoarthritis Continue management with acetaminophen for pain relief and avoid straining knees. No adjustment in medication currently, although consideration for alternative analgesics may be warranted if pain persists. 3. History Of Vertigo Although not currently symptomatic, patient to remain cautious of any vertiginous episodes and report if they recur. Maintain hydration and consider vestibular exercises if necessary. 4. Migraine With Visual Aura Reassurance provided regarding silent migraines causing temporary visual disturbances. Monitoring recommended and seek care if episodes increase in frequency or severity. 5. Essential Hypertension Monitor blood pressure regularly, continue atenolol 25 mg daily, and consider adjusting dose based on home blood pressure readings. Patient advised to take additional dose if systolic blood pressure remains elevated. Diagnostic results - Labs: Slightly elevated white blood cell count, hemoglobin level at 17, platelet count at 849. - Tests: Normal sinus rhythm with rate of 76 bpm on EKG, no ischemic changes. - Diagnostics: CT scan of brain showed no acute abnormalities. Problem List - Osteoarthritis - Essential Hypertension - Migraine with visual aura - Thrombocytosis - History of vertigo Medications - Acetaminophen 325 mg as needed for osteoarthritis pain - Atenolol 25 mg once daily for hypertension Patient Instructions - Continue taking acetaminophen for osteoarthritis pain relief as needed. - Monitor your blood pressure regularly at home. Take an extra dose of atenolol only if advised by your blood pressure readings and it goes significantly high. - Manage migraine episodes by rest and reassurance, but seek medical attention if visual disturbances worsen or are accompanied by new symptoms. - Report any symptoms of dizziness or vertigo. Keep hydrated. - Follow up in November as scheduled, or sooner if health issues arise. Medications: Discontinued atenolol (Tenormin) Discontinued Reason: Change Referral Type 50 mg PO BID 60 tabs 0RF escitalopram oxalate (Lexapro) Discontinued Reason: Doctor's Order 10 mg PO DAILY 90 tabs 0RF
== END 2024-08-12 13:29 | disposition home or self-care (01) ==
PROVIDERS: PCP Internal Medicine; Visit Provider Internal Medicine
DX: Z09 Encounter for follow-up examination after completed treatment for conditions other than malignant neoplasm (principal); I10 Essential (primary) hypertension; D47.3 Essential (hemorrhagic) thrombocythemia; E03.8 Other specified hypothyroidism; F41.1 Generalized anxiety disorder; M25.561 Pain in right knee; M25.562 Pain in left knee; G89.29 Other chronic pain; G60.9 Hereditary and idiopathic neuropathy, unspecified

== ENCOUNTER → 2024-08-12 12:42 | Outpatient (BNVA) | payer MEDICARE, SELFPAY | PROVIDERS: Visit Provider Internal Medicine | DX: Z09 Encounter for follow-up examination after completed treatment for conditions other than malignant neoplasm (principal); I10 Essential (primary) hypertension; D47.3 Essential (hemorrhagic) thrombocythemia; E03.8 Other specified hypothyroidism; F41.1 Generalized anxiety disorder; M25.561 Pain in right knee; M25.562 Pain in left knee; G89.29 Other chronic pain; G60.9 Hereditary and idiopathic neuropathy, unspecified | CPT/HCPCS: 99212 ==

== ENCOUNTER 2024-09-16 12:43 | Outpatient (REF) | payer MEDICARE, SELFPAY ==
--- NOTE | ~2024-09-16 | XR_ITS ---
EXAMINATION: XR KNEE, RIGHT CLINICAL INFORMATION: M25.561 - Pain in right knee COMPARISON: None available. TECHNIQUE: Two views of the right knee. FINDINGS: No fracture or joint effusion. Alignment is anatomic. Joint spaces are maintained. No abnormal soft tissue calcification. XR/XR knee RT 2V IMPRESSION: Normal right knee. Electronically signed by: Roque Obrien MD 09/28/2024 03:22 PM [facility]
--- NOTE | ~2024-09-16 | XR_ITS ---
EXAMINATION: XR KNEE 1-2 VIEWS LEFT HISTORY: Pain in left knee. COMPARISON: Comparison is made with the prior examination dated 04/07/2023. FINDINGS: AP and lateral views of the left knee are submitted. Osseous mineralization is normal. There is no fracture or dislocation. The joint spaces are preserved. The soft tissues are unremarkable. XR/XR knee LT 2V IMPRESSION: Unremarkable examination of the left knee. Electronically signed by: Saleem Castro MD 09/28/2024 03:07 PM [facility]
== END 2024-09-16 12:44 | disposition home or self-care (01) ==
LOC: HO.HMGCX 12:43
PROVIDERS: PCP Internal Medicine; Visit Provider Internal Medicine
DX: M25.561 Pain in right knee (principal); M25.562 Pain in left knee; G89.29 Other chronic pain
CPT/HCPCS: 73560; 99212

== ENCOUNTER 2024-09-16 12:43 | Outpatient (AMB) | payer MEDICARE, SELFPAY ==
[2024-09-16 12:55] VITALS: BP 136/86; PULSE 91; O2SAT 98; BMI 21.1
--- NOTE | 2024-09-16 12:55 | MHC.OFFWIV ---
Intake Vital Signs 09/16/24 12:55 Height 5 ft 3 in Weight 119 lb BMI 21.1 BP 136/86 Blood Pressure Location Lt brachial Position Sitting Pulse 91 Pulse Source Pulse Oximeter Pulse Oximetry (%) 98 Oxygen Delivery Method Room Air Intake Visit Reasons: EP Bilateral knee pain due to fall Intake Note: Pt is here today for a walk in visit. Pt c/o fall in July and landed on her knees. Patient Tobacco Use Status: Never used Tobacco Allergies No Known Allergies Allergy (Unknown, Verified 09/16/24 12:57) Medication List - Last Reconciled 09/16/24 by Chuck Morris MD alendronate (Fosamax) 70 mg PO QWEEK 90 days aspirin (Adult Low Dose Aspirin) 81 mg PO DAILY atenolol 25 mg PO BID 90 days gabapentin 100 mg PO BEDTIME levothyroxine 50 mcg PO DAILY 90 days HPI EP Bilateral knee pain due to fall HPI Details Chief Complaint The patient presents with knee pain and difficulty walking following a fall one month ago. History of Present Illness - The patient is an 83-year-old female presenting with knee pain and difficulty walking after a fall experienced a month ago. - She has a history of osteoarthritis affecting the knees, with symptoms persisting post-fall. - The patient reports redness in the knees without accompanying swelling, and difficulty with ambulation, particularly on stairs. - Previous x-ray in July did not highlight fractures or significant new damage. - Pain management strategies prior to this visit included ibuprofen, which did not provide adequate relief, prompting a discussion about Celebrex for sustained pain relief. - The patient?s use of preventative strategies includes using a walker at night to prevent further falls. Plan The patient's persistent knee pain due to osteoarthritis, worsened by a fall, necessitates a change in pain management strategy. We discussed transitioning to Celebrex for longer-lasting pain control, pending cost considerations. An updated knee x-ray is advised to rule out new injuries. Recommendations include preventative measures such as using a walker during night-time movements to reduce fall risks. Further evaluation by an application development specialist may be warranted if current interventions prove insufficient. Patient Instructions - Use Celebrex as discussed, pending affordability; check with the pharmacy about costs. - Avoid high-risk activities that could lead to another fall. - Use a walker or hold on to stable objects when moving at night. - Monitor for changes in pain or increased difficulty with movement. - Have prescribed x-ray imaging completed to assess current knee condition. Review of Systems - Musculoskeletal: Reports knee pain, difficulty ascending stairs, intermittent redness, denies swelling - Neurological: Denies dizziness, falls reported primarily at night Constitutional: No fever no chills Respiratory: no Cough, no shortness a breath Cardiovascular: no palpitations, no chest pains gastrointestinal: No nausea no vomiting no diarrhea PATTERN VAULT CLERK: No headache no blurring of vision skin: No rash extremities: As per history [facility] Medical History Bleeding hemorrhoids Family History Father Family hx of colon cancer Social History Household Members: Spouse Housing: [facility] Are you a primary animal care worker to a significant other at home: No Do you presently have visiting nurse or other home services: No Alcohol intake: current Alcohol intake frequency: 0-2 drinks per day Alcohol type: hard liquor Patient Tobacco Use Status: Never used Tobacco e-Cigarette/Vaping Use: Never Used Second Hand Smoke Exposure: No Advance Directives Date on File: 12/10/23 service: No Current occupational status: retired Cognitive needs: No Hearing needs: No Vision needs: Yes Physical Exam Vital Signs: Last Vital Signs Pulse 91 09/16/24 12:55 BP 136/86 09/16/24 12:55 Pulse Ox 98 09/16/24 12:55 Oxygen Delivery Method Room Air 09/16/24 12:55 BMI result Body Mass Index 21.1 Assessment & Plan Assessment & Plan (1) Bilateral knee pain: Code(s): M25.561 - Pain in right knee; M25.562 - Pain in left knee Qualifiers: Chronicity: chronic Qualified Code(s): M25.561 - Pain in right knee; M25.562 - Pain in left knee; G89.29 - Other chronic pain Plan The patient is an 83-year-old female presenting with knee pain and difficulty walking after a fall experienced a month ago. - She has a history of osteoarthritis affecting the knees, with symptoms persisting post-fall. - The patient reports redness in the knees without accompanying swelling, and difficulty with ambulation, particularly on stairs. - Previous x-ray in July did not highlight fractures or significant new damage. - Pain management strategies prior to this visit included ibuprofen, which did not provide adequate relief, prompting a discussion about Celebrex for sustained pain relief. - The patient?s use of preventative strategies includes using a walker at night to prevent further falls. Plan The patient's persistent knee pain due to osteoarthritis, worsened by a fall, necessitates a change in pain management strategy. We discussed transitioning to Celebrex for longer-lasting pain control, pending cost considerations. An updated knee x-ray is advised to rule out new injuries. Recommendations include preventative measures such as using a walker during night-time movements to reduce fall risks. Further evaluation by an application development specialist may be warranted if current interventions prove insufficient. Orders: Orders XR knee LT 2V Today G89.29 - Other chronic pain, M25.561 - Pain in right knee, M25.562 - Pain in left knee XR knee RT 2V Today G89.29 - Other chronic pain, M25.561 - Pain in right knee, M25.562 - Pain in left knee Medications: New celecoxib (Celebrex) 200 mg (2 x 100 mg) PO DAILY 30 caps 0RF Coding Level of Care Code Est Pt Level 3 (31402) Diagnoses Chronic pain of both knees M25.561; M25.562; G89.29 Chronicity: chronic
== END 2024-09-16 14:06 | disposition home or self-care (01) ==
PROVIDERS: PCP Internal Medicine; Visit Provider Internal Medicine
DX: M25.561 Pain in right knee (principal); M25.562 Pain in left knee; G89.29 Other chronic pain

== ENCOUNTER → 2024-09-16 13:34 | Outpatient (BNV) | payer MEDICARE, SELFPAY | PROVIDERS: PCP Internal Medicine; Visit Provider Radiology Diagnostic Radiology | DX: M25.562 Pain in left knee (principal); M25.561 Pain in right knee | CPT/HCPCS: 73560 ==

== ENCOUNTER 2024-11-10 12:05 | Outpatient (AMB) | payer MEDICARE, SELFPAY ==
--- NOTE | 2024-11-10 12:43 | MHC.OFFWIV ---
Intake Vital Signs 11/10/24 12:54 Weight 120 lb BP 140/90 H Blood Pressure Location Rt brachial Position Sitting Pulse 85 Pulse Source Pulse Oximeter Pulse Oximetry (%) 98 Oxygen Delivery Method Room Air Intake Visit Reasons: EP Fall, Rt leg/foot injury (not WC) Intake Note: Patient here for right leg pain after she fell out of bed last night. Patient Tobacco Use Status: Never used Tobacco Allergies No Known Allergies Allergy (Unknown, Verified 11/10/24 12:55) Do you need a note to return to daycare/school/sports/work: No HPI HPI Comments History of Present Illness Details 84 y/o female patient who presents to the walk in clinic with c/o right lower extremity pain after a Fall at home this morning. Pt reports Falling off her Bed this morning at 4 am, when she was getting up. She believes she landed on her leg, but does not remember how it really happened. Denies LOC or hitting her head. She has not taken any Pain relief medications because They do not work for me . [facility] Medical History (Updated 11/10/24 @ 13:12 by Jennifer Ferris NP) Pain of right lower leg Bleeding hemorrhoids Family History Father Family hx of colon cancer Social History Household Members: [facility] Are you a primary client care manager to a significant other at home: No Do you presently have visiting nurse or other home services: No Alcohol intake: current Alcohol intake frequency: 0-2 drinks per day Alcohol type: hard liquor Patient Tobacco Use Status: Never used Tobacco e-Cigarette/Vaping Use: Never Used Second Hand Smoke Exposure: No Advance Directives Date on File: 12/10/23 service: No Current occupational status: retired Cognitive needs: No Hearing needs: No Vision needs: Yes Review of Systems Const All systems reviewed & are unremarkable except as noted in HPI and below Physical Exam Vital Signs: Last Vital Signs Pulse 85 11/10/24 12:54 BP 140/90 H 11/10/24 12:54 Pulse Ox 98 11/10/24 12:54 Oxygen Delivery Method Room Air 11/10/24 12:54 Const General: cooperative and no acute distress Orientation/consciousness: patient oriented x3 Neuro General: patient oriented x3, gait normal and moves all extremities Extrem Right lower extremity: full ROM and lower leg Details: normal to inspection, tenderness Location: of the posterior calf, of the distal tibia and of the distal fibula and no edema; no erythema, no ecchymosis and no crepitus Psych Speech and movement: Normal speech and movement present Assessment & Plan Assessment & Plan (1) Pain of right lower leg: Code(s): M79.661 - Pain in right lower leg Plan: Advised to take Acetaminophen or NSAIDs for pain relief. Rest and elevate Joint. Low chance of Fracture at this time. If pain worse will order Xrays. Coding Level of Care Code Est Pt Level 4 (80327) Diagnoses Pain of right lower leg M79.661 Time Spent (min) 20
[2024-11-10 12:54] VITALS: BP 140/90; PULSE 85; O2SAT 98
--- OUTSIDE RECORDS SUMMARY | 2024-11-10 15:27 | XMS_ITS | Clinical Summary ---
Author Organization [facility] Facility Address [address] [place] [id number] Care Team Providers Care Taximeter Repairer Name Role Phone Chuck Morris MD Primary Care Provider [phone] Allergies No known active allergies Medications levothyroxine (SYNTHROID, LEVOTHROID) 50 MCG tablet Take 50 mcg by mouth 1 (one) time each day 08/15/2022 Active atenolol (TENORMIN) 25 MG tablet Take 25 mg by mouth 1 (one) time each day 08/28/2022 Active alendronate (FOSAMAX) 70 MG tablet Take 70 mg by mouth 09/15/2022 Active aspirin 81 MG chewable tablet Chew 81 mg 1 (one) time each day Active Active Problems Problem Noted Date Diagnosed Date Essential (primary) hypertension 11/04/2022 Hypothyroidism 11/04/2022 Osteoporosis 11/04/2022 Tachycardia 11/04/2022 Hyperkalemia 11/04/2022 Social History Tobacco Use Types Packs/Day Years Used Date Smoking Tobacco: Never Tobacco Cessation:Counseling Given: Not Answered Alcohol Use Standard Drinks/Week Comments Never 0 (1 standard drink = 0.6 oz pur e alcohol) Comments Unknown Sex and Gender Information Value Date Recorded Sex Assigned at Not on file Legal Sex Female 11:16 AM EST Gender Identity Not on file Sexual Orientation Not on file Last Filed Vital Signs Vital Sign Reading Time Taken Comments Blood Pressure 138/60 11/04/2022 2:32 PM EST Pulse 91 11/04/2022 2:32 PM EST Temperature - - Respiratory Rate - - Oxygen Saturation 97% 11/04/2022 2:32 PM EST Inhaled Oxygen Concentration - - Weight 54.3 kg (119 lb 9.6 oz) 11/04/2022 2:32 P M EST Height - - Body Mass Index - - Plan of Treatment Health Maintenance Due Date Last Done Comments Pneumococcal Vaccine: 65+ Ye ars (1 of 2 - PCV) 1948 Influenza Vaccine (#1) 2024 Hepatitis B Vaccine Aged Out No longe r eligible based on patient's age to complete this topic Insurance MEDICARE [facility]ICARE [facility] Care Teams Taximeter Repairer Relationship Specialty Start Date End Date Chuck Morris MD [address] [place] [address] [phone] PCP - General Internal Medicine 08/05/22
== END 2024-11-10 13:50 | disposition home or self-care (01) ==
PROVIDERS: PCP Internal Medicine; Visit Provider Nurse Practitioner Family
DX: M79.661 Pain in right lower leg (principal)

== ENCOUNTER → 2024-11-10 12:05 | Outpatient (BNVA) | payer MEDICARE, SELFPAY | PROVIDERS: PCP Internal Medicine; Visit Provider Nurse Practitioner Family | DX: M79.661 Pain in right lower leg (principal) | CPT/HCPCS: 99212 ==

== ENCOUNTER 2024-12-14 10:58 | Outpatient (AMB) | payer MEDICARE, SELFPAY ==
[2024-12-14 11:01] VITALS: BP 144/78; PULSE 77; O2SAT 95; BMI 21.0
--- NOTE | 2024-12-14 11:01 | A.OFFVIS_ITS ---
Intake Vital Signs 12/14/24 11:01 Height 5 ft 3 in Weight 118 lb 6 oz BMI 21.0 BP 144/78 H Blood Pressure Location Rt brachial Position Sitting Pulse 77 Pulse Source Pulse Oximeter Pulse Oximetry (%) 95 Oxygen Delivery Method Room Air Intake Visit Reasons: [facility] G0439 Allergies No Known Allergies Allergy (Unknown, Verified 12/14/24 11:01) Medication List - Last Reconciled 12/14/24 by Chuck Morris MD alendronate (Fosamax) 70 mg PO QWEEK 90 days aspirin (Adult Low Dose Aspirin) 81 mg PO DAILY atenolol 25 mg PO BID 90 days celecoxib (Celebrex) 200 mg (2 x 100 mg) PO DAILY gabapentin 100 mg PO BEDTIME levothyroxine 50 mcg PO DAILY 90 days Do you need a note to return to daycare/school/sports/work: No HPI [facility] G0439 HPI Details Medicare wellness visit and follow-up appointment - The patient is an 84-year-old female - Previous leg injury requiring , vertig o and bilateral knee pain along with peripheral neuropathy, she was having difficulty climbing stairs , she got a stair lift She is requesting a script for that so she can be reimbursed partially, script provided to patient and we have also faxed it over - Underwent cognitive assessment to [facility]; manages affairs independently. - The patient uses walker as well at [facility] . - Acknowledges balance issues noted nahed angel physical assessments. - States no consistent issues with neuro jose currently - Knee discomfort addressed by audi grubbs an expensive stair lift to mitigate pain and prevent future falls.. - thrombocytosis stable patient is margarita Cardona She has also been evaluated by Cardiology and Nephrology in the past Medications - Levothyroxine for hypothyroidism - Celebrex (celecoxib) as needed for radha n management, particularly effective for knee discomfort - Atenolol 25 mg for hypertension Problem List - Previous Leg Injury - Cognitive Assessment (No specific diag nosis stated) - Balance Issues - Hypertension - Neuropathy (Friend's condition, saroj kinney in conversation) - Knee Pain (leading to stair lift insta llation) [place] of Care - Engaged with long-term healthcare serv ices for routine assistance, including nurse assessments and weekly helper for household tasks. - Contact with [facility] part of [employer] for coordinated care management. Patient Instructions - Continue using safety aids such as a w alker and stair lift. - Monitor blood pressure ensuring adequa te hydration - Utilize home care assistance for house hold chores to prevent fall risk. - Ensure all medications are taken as pr escribed. - Schedule follow-up appointments as adv ised. - Contact healthcare provider if symptom s worsen or any new concerns arise. Review of Systems General: No fever no chills neurological: No headaches ear nose throat: No sore throat no hearing difficulty no ear pain cardiovascular: No syncope, no chest pain, no palpitations gastrointestinal: No nausea vomiting or diarrhea genitourinary: No dysuria skin: No new complaints Physical Exam general: No acute distress HEENT: No acute findings neck: Supple respiratory system: Able to talk in full sentences, no audible wheeze no stridor Cardiovascular: S1-S2 regular in rate and rhythm gastrointestinal: No pain extremities: No new findings INTERACTIVE ART DIRECTOR: Alert awake oriented x3 motor sensory intact, Romberg failed tandem failed skin: Normal turgor HPI Comments History of Present Illness Details AWV Medical/social history reviewed Past medical history reviewed [place] of care / care team list updated Surgical/ hospitalization history reviewed Current medications including OTC and supplements reviewed Family history reviewed Tobacco controlled form updated Alcohol use form updated Illicit drug use in social history reviewed Current diagnosis of depression ?screening updated Appropriate PHQ 2/PHQ-9 completed . Vital signs reviewed Alcohol tobacco drug use reviewed and discussed . MMSE completed . ? Fall risk: ?Assessed Fall history: ?None Have you had any falls with injury in the past year?? No Have you had 2 or more falls in the past year?? No Fall risk assessment completed Home safety discussed with the patient Functional ability assessed and discussed and documented Activities of daily living reviewed and appropriate actions taken . HRA filled out by the patient and reviewed by provider and scanned . Appropriate written screening schedule established . Any health advise needed provided . Advance care planning discussed with the patient , necessary paperwork filled Examination IPPE/AWE: Balance off Romberg failed Tandem walk failed walk-in turn failed rise from sit to stand intact . ?Hearing ?whisper test pass . Medication list reviewed, patient is stable on medications All other providers patient is seeing discussed and noted . [facility] Medical History Pain of right lower leg Bleeding hemorrhoids Family History Father Family hx of colon cancer Social History Household Members: Spouse Housing: Condominium Are you a primary career development consultant to a significant other at home: No Do you presently have visiting nurse or other home services: No Alcohol intake: current Alcohol intake frequency: 0-2 drinks per day Alcohol type: hard liquor Patient Tobacco Use Status: Never used Tobacco e-Cigarette/Vaping Use: Never Used Second Hand Smoke Exposure: No Advance Directives Date on File: 12/10/23 service: No Current occupational status: retired Cognitive needs: No Hearing needs: No Vision needs: Yes Questionnaire Medicare Wellness Checkup What is your age?: 80 or older What gender do you identify with?: female During the past 4 weeks, how much have you been bothered by emotional problems such as feeling anxious, depressed, irritable, sad or downhearted, and blue?: moderately During the past 4 weeks, has your physical & emotional health limited your social activities with family, friends, neighbors, or groups?: moderately During the past 4 weeks, how much bodily pain have you generally had?: moderate pain During the past 4 weeks, was someone available to help you if you needed & wanted help?: yes, some During the past 4 weeks, what was the hardest physical activity you could do for at least 2 minutes?: moderate Can you get to places out of walking distance without help? (For eg., can you travel alone on buses, taxis or drive your car?): Yes Can you go shopping for groceries or clothes without someone's help?: Yes Can you prepare your own meals?: Yes Can you do your housework without help?: No Because of any health problems, do you need the help of another person with your personal care needs such as eating, bathing, dressing or getting around the house?: Yes Can you handle your own money without help?: Yes During the past 4 weeks, how would you rate your health in general?: very good During the past 4 weeks how have things been going for you?: good & bad parts a bout equal Are you having difficulties driving your car?: no Do you always fasten your seat belt when you are in a car?: yes, usually During past 4 weeks, have you been bothered by the following: never: Falling or dizzy when standing up, Sexual problems?, Trouble eating well?, Teeth or denture problems?, Problems using the telephone? and Tiredness or fatigue? Have you fallen 2 or more times in the past year?: Yes Are you afraid of falling?: No Are you a smoker?: no During the past 4 weeks, how many drinks of wine, beer, or other alcoholic beverages did you have?: 10 or more per week Do you exercise for about 20 minutes 3 or more times a week?: no, I usually do not exercise this much Have you been given information to help with the following?: yes: Hazards in your house that might hurt you? and yes: Keeping track of your medications? How often do you have trouble taking medicines the way you have been told to take them?: I always take medicine as prescribed How confident are you that you can control & manage most of your health problems?: somewhat confident What is your race?: White Mini Mental State Exam (MMSE) Orientation What is the (year) (season) (date) (day) (month)?: year, season, date, day and month Where are we (state) (county) (town or city) (hospital) (floor)?: state, county, town or city, hospital/clinic and floor Score Score: 10 Activity of Daily Living Bathing - sponge bath, tub bath or shower: receives no assistance (gets in/out by self, if usual bathing means Dressing - getting clothes from closets & drawers, including inner/outer garments & fasteners.: gets clothes & gets completely dressed without help Toileting - going to the 'toilet room' for urine/bowel elimination & cleaning self/arranging clothes: goes to toilet room, cleans self, arranges clothes without help Transfer: moves in & out of bed and chair without help (may use support object) Continence: controls urination/bowel movements completely by self Feeding: feeds self without help Total Score: 0 Information obtained from: patient Using telephone: independent Traveling: independent Shopping: independent Preparing meals: independent Housework: independent Taking medicine: independent Managing money: independent PHQ-9 Over the last 2 weeks, how often have you been bothered by any of the following problems? 1. Little interest or pleasure in doing things: several days 2. Feeling down, depressed, or hopeless: not at all 3. Trouble falling or staying asleep, or sleeping too much: not at all 4. Feeling tired or having little energy: several days 5. Poor appetite or overeating: not at all 6. Feeling bad about yourself - or that you are a failure or have let yourself or your family down: not at all 7. Trouble concentrating on things, such as reading the newspaper or watching television: several days 8. Moving or speaking so slowly that other people could have noticed. Or the opposite - being so fidgety or restless that you have been moving around a lot more than usual: several days 9. Thoughts that you would be better off or of hurting yourself in some way: not at all Total score: 4 Depression Screening Interpretation: Negative Depression Screening Done: Yes 43614 - PHQ-9 Billing: Yes Source: Developed by Drs. Saleem Stein, Paola Pool, Meek Bocanegra and colleagues, with an educational madhavi from [employer]. Physical Exam Vital Signs: Last Vital Signs Pulse 77 12/14/24 11:01 BP 144/78 H 12/14/24 11:01 Pulse Ox 95 12/14/24 11:01 Oxygen Delivery Method Room Air 12/14/24 11:01 BMI result Body Mass Index 21.0 Assessment & Plan Assessment & Plan (1) Medicare annual wellness visit, subsequent: Code(s): Z00.00 - Encounter for general adult medical examination without abnormal findings (2) Hypertension, essential: Code(s): I10 - Essential (primary) hypertension (3) Other specified hypothyroidism: Code(s): E03.8 - Other specified hypothyroidism (4) Osteoporosis: Code(s): M81.0 - Age-related osteoporosis without current pathological fracture Qualifiers: Osteoporosis type: age-related Presence of current pathological fracture: without current pathological fracture Qualified Code(s): M81.0 - Age- related osteoporosis without current pathological fracture (5) Osteoarthritis of knees, bilateral: Code(s): M17.0 - Bilateral primary osteoarthritis of knee Qualifiers: Osteoarthritis type: primary Qualified Code(s): M17.0 - Bilateral primary osteoarthritis of knee (6) Thrombocytosis: Code(s): D47.3 - Essential (hemorrhagic) thrombocythemia (7) Peripheral neuropathy: Code(s): G62.9 - Polyneuropathy, unspecified Qualifiers: Peripheral neuropathy type: idiopathic neuropathy, unspecified Qualified Code(s): G60.9 - Hereditary and idiopathic neuropathy, unspecified (8) Vertigo: Code(s): R42 - Dizziness and giddiness (9) Anxiety, generalized: Code(s): F41.1 - Generalized anxiety disorder Plan Medicare wellness visit and follow-up appointment - The patient is an 84-year-old female - Previous leg injury requiring , vertigo and bilateral knee pain along with peripheral neuropathy, she was having difficulty climbing stairs , she got a stair lift She is requesting a script for that so she can be reimbursed partially, script provided to patient and we have also faxed it over - Underwent cognitive assessment to evaluate mental alertness; manages affairs independently. - The patient uses walker as well at night . - Acknowledges balance issues noted during physical assessments. - States no consistent issues with neuropathy currently - Knee discomfort addressed by installing an expensive stair lift to mitigate pain and prevent future falls.. - thrombocytosis stable patient is seeing Dr. Cardona She has also been evaluated by Cardiology and Nephrology in the past Medications - Levothyroxine for hypothyroidism - Celebrex (celecoxib) as needed for pain management, particularly effective for knee discomfort - Atenolol 25 mg for hypertension Problem List - Previous Leg Injury - Cognitive Assessment (No specific diagnosis stated) - Balance Issues - Hypertension - Neuropathy (Friend's condition, mentioned in conversation) - Knee Pain (leading to stair lift installation) [place] of Care - Engaged with long-term healthcare services for routine assistance, including nurse assessments and weekly helper for household tasks. - Contact with [facility] part of [employer] for coordinated care management. Patient Instructions - Continue using safety aids such as a walker and stair lift. - Monitor blood pressure ensuring adequate hydration - Utilize home care assistance for diamond die polisher to prevent fall risk. - Ensure all medications are taken as prescribed. - Schedule follow-up appointments as advised. - Contact healthcare provider if symptoms worsen or any new concerns arise. Orders: Orders LDL Cholesterol Direct Today D47.3 - Essential (hemorrhagic) thrombocythemia, E03.8 - Other specified hypothyroidism, F41.1 - Generalized anxiety disorder, G60.9 - Hereditary and idiopathic neuropathy, unspecified, I10 - Essential (primary) hypertension, M17.0 - Bilateral primary osteoarthritis of knee, M81.0 - Age-related osteoporosis without current pathological fracture Complete Blood Count Auto Diff Today D47.3 - Essential (hemorrhagic) thrombocythemia, E03.8 - Other specified hypothyroidism, F41.1 - Generalized anxiety disorder, G60.9 - Hereditary and idiopathic neuropathy, unspecified, I10 - Essential (primary) hypertension, M17.0 - Bilateral primary osteoarthritis of knee, M81.0 - Age-related osteoporosis without current pathological fracture Comprehensive Met. Panel Today D47.3 - Essential (hemorrhagic) thrombocythemia, E03.8 - Other specified hypothyroidism, F41.1 - Generalized anxiety disorder, G60.9 - Hereditary and idiopathic neuropathy, unspecified, I10 - Essential (primary) hypertension, M17.0 - Bilateral primary osteoarthritis of knee, M81.0 - Age-related osteoporosis without current pathological fracture TSH reflex Free T4 Today D47.3 - Essential (hemorrhagic) thrombocythemia, E03.8 - Other specified hypothyroidism, F41.1 - Generalized anxiety disorder, G60.9 - Hereditary and idiopathic neuropathy, unspecified, I10 - Essential (primary) hypertension, M17.0 - Bilateral primary osteoarthritis of knee, M81.0 - Age- related osteoporosis without current pathological fracture Vitamin D 25-OH (D2 and D3) Today D47.3 - Essential (hemorrhagic) thrombocythemia, E03.8 - Other specified hypothyroidism, F41.1 - Generalized anxiety disorder, G60.9 - Hereditary and idiopathic neuropathy, unspecified, I10 - Essential (primary) hypertension, M17.0 - Bilateral primary osteoarthritis of knee, M81.0 - Age-related osteoporosis without current pathological fracture Vitamin B12 Today D47.3 - Essential (hemorrhagic) thrombocythemia, E03.8 - Other specified hypothyroidism, F41.1 - Generalized anxiety disorder, G60.9 - Hereditary and idiopathic neuropathy, unspecified, I10 - Essential (primary) hypertension, M17.0 - Bilateral primary osteoarthritis of knee, M81.0 - Age- related osteoporosis without current pathological fracture Medications: New [Stairlift] As directed 1 0 [id number] G60.9 - Hereditary and idiopathic kaycee ropathy, unspecified, M17.0 - Bilateral primary osteoarthritis of knee, M79.661 - Pain in right lower leg, M81.0 - Age-related osteoporosis without current pathological fracture, R42 - Dizziness and giddiness Quality Reporting (2019) Depression/Bipolar (159/160/161/177) PHQ-9: Total score: 4 Coding Level of Care Code Medicare Subsequent (G0439) Est Pt Level 4 (41250) Diagnoses Medicare annual wellness visit, subsequent Z00.00 Hypertension, essential I10 Other specified hypothyroidism E03.8 Age-related osteoporosis without current pathological fracture M81.0 Osteoporosis type: age-related Presence of current pathological fracture: without current pathological fracture Primary osteoarthritis of both knees M17.0 Osteoarthritis type: primary Thrombocytosis D47.3 Idiopathic peripheral neuropathy G60.9 Peripheral neuropathy type: idiopathic neuropathy, unspecified Vertigo R42 Anxiety, generalized F41.1 CPT Codes Advance Care Planning - Advance Care Planning discussion: On file, no changes ([id number]) Advance Care Planning - Time spent: 1-15 minutes, on File ([id number]) Additional Codes PHQ-9 - 38884 - PHQ-9 Billing: Yes ([id number]) Advance Care Planning Advance Care Planning discussion: On file, no changes Forms completed: MOLST Time spent: 1-15 minutes, on File
--- OUTSIDE RECORDS SUMMARY | 2024-12-14 13:08 | XMS_ITS | Clinical Summary ---
Author Organization [facility] Facility Address [address] [place] [address] Care Team Providers Care Motor Vehicle Salesperson Name Role Phone Chuck Morris MD Primary Care Provider [phone] Allergies No known active allergies Medications levothyroxine [...] Due Date Last Done Comments Pneumococcal Vaccine: 50+ Ye ars (1 of 2 - PCV) 1959 Influenza Vaccine (Season Ended) 2025 Hepatitis B Vaccine Aged Out No longe r eligible based on patient's age to complete this topic Insurance Medicare [facility] Medicare [facility] Care Teams Motor Vehicle Salesperson Relationship Specialty Start Date End Date Chuck Morris MD [address] [place] [address] [phone] PCP - General Internal Medicine 08/05/22
== END 2024-12-14 11:43 | disposition home or self-care (01) ==
LOC: HO.HMCC 10:59
PROVIDERS: Visit Provider Internal Medicine
DX: Z00.00 Encounter for general adult medical examination without abnormal findings (principal); I10 Essential (primary) hypertension; D47.3 Essential (hemorrhagic) thrombocythemia; E03.8 Other specified hypothyroidism; M81.0 Age-related osteoporosis without current pathological fracture; M17.0 Bilateral primary osteoarthritis of knee; G60.9 Hereditary and idiopathic neuropathy, unspecified; R42 Dizziness and giddiness; F41.1 Generalized anxiety disorder

== ENCOUNTER → 2024-12-14 10:58 | Outpatient (BNVA) | payer MEDICARE, SELFPAY | PROVIDERS: Visit Provider Internal Medicine | DX: Z00.00 Encounter for general adult medical examination without abnormal findings (principal); I10 Essential (primary) hypertension; E03.8 Other specified hypothyroidism; M81.0 Age-related osteoporosis without current pathological fracture; M17.0 Bilateral primary osteoarthritis of knee; D47.3 Essential (hemorrhagic) thrombocythemia; G60.9 Hereditary and idiopathic neuropathy, unspecified; R42 Dizziness and giddiness; F41.1 Generalized anxiety disorder; Z79.899 Other long term (current) drug therapy | CPT/HCPCS: 96127; 99212 ==

== ENCOUNTER → 2025-02-09 23:59 | Outpatient (BNV) | payer MEDICARE, SELFPAY | PROVIDERS: PCP Internal Medicine; Visit Provider Internal Medicine | DX: M80.062D Age-related osteoporosis with current pathological fracture, left lower leg, subsequent encounter for fracture with routine healing (principal); I10 Essential (primary) hypertension; E03.9 Hypothyroidism, unspecified | CPT/HCPCS: G0180 ==

== ENCOUNTER 2025-05-16 11:36 | Outpatient (AMB) | payer MEDICARE, SELFPAY ==
[2025-05-16 11:42] VITALS: BP 144/78; PULSE 78; O2SAT 98; BMI 20.9
--- NOTE | 2025-05-16 11:42 | MHC.PC.OV ---
Vital Signs 05/16/25 11:42 Height 5 ft 3 in Weight 118 lb BMI 20.9 BP 144/78 H Blood Pressure Location Lt brachial Position Sitting Pulse 78 Pulse Source Pulse Oximeter Pulse Oximetry (%) 98 Intake Visit Reasons: Follow up Allergies No Known Allergies Allergy (Unknown, Verified 05/16/25 11:42) Medication List - Last Reconciled 05/16/25 by Chuck Morris MD alendronate (Fosamax) 70 mg PO QWEEK 90 days aspirin (Adult Low Dose Aspirin) 81 mg PO DAILY atenolol 25 mg PO BID 90 days celecoxib (Celebrex) 200 mg (2 x 100 mg) PO DAILY gabapentin 100 mg PO BEDTIME levothyroxine 50 mcg PO DAILY 90 days [Stairlift As directed] Tobacco use date assessed: 05/16/25 Fall risk assessment: 1 Fall in past year Last assessed Fall Risk: 05/16/25 Dental Screening Dental Screen Date: 05/16/25 Did you have a dental visit in the last 12 months?: Yes Did you have a dental problem in the last 6 months where you did not have access to dental care?: No Was dental information given to patient?: Patient has dentist HPI Follow up HPI Details History The patient is an 84-year-old female presenting with follow-up for a tibial shaft fracture and general health maintenance. Left tibial shaft fracture: - The fracture occurred as a result of a fall in the bathroom. - Underwent percutaneous fixation of the left tibial shaft fracture. - Injuries sustained occurred in November of this year. - Patient currently experiences some residual pain but considers it manageable. - Utilizing a walker for extra security, although she can ambulate without it. - Patient anticipates visiting orthopedics for follow-up in about two weeks. Medical History: -risk for fall - Asthma - Hypertension - thrombocytosis - hypothyroidism Medications: - Alendronate (Fosamax), for bone density - Atenolol 25 mg, twice daily, for hypertension - Levothyroxine 50 mcg, for thyroid function - Gabapentin, used at night for sleep Social History: - Resides in a living facility called [facility] - Sold previous home and vehicle as part of transitioning into the living facility - Manages own medication by herself - Reports reduced anxiety due to relocation and management of household responsibilities Family History: - , Dennis, experiencing dementia and residing in a intermediate Problem List - Left tibial shaft fracture - Hypertension - Asthma - Thrombocytosis - hypothyroidism - peripheral neuropathy [place] of Care - Receiving additional care and follow-up from orthopedics at [facility] Patient Instructions - Continue using the walker for support as needed. - Arrange blood tests to check platelet levels at convenience. - Visit orthopedics for follow-up in two weeks. - Consider contacting the pharmacy for a senior dose flu shot. - follow-up 4 months, continue medications Review of Systems General: No fever no chills neurological: No headaches no dizziness ear nose throat: No sore throat no hearing difficulty no ear pain cardiovascular: No syncope, no chest pain, no palpitations gastrointestinal: No nausea vomiting or diarrhea endocrine: No polyuria polydipsia no heat intolerance genitourinary: No dysuria skin: No new complaints Physical Exam general: No acute distress HEENT: No acute findings neck: Supple respiratory system: Able to talk in full sentences, no audible wheeze no stridor cardiovascular: S1-S2 RRR gastrointestinal: No pain extremities: Left lower leg with a history of tibial shaft fracture , however patient is able to get up and walk without any discomfort HEAD LINEMAN: Alert awake oriented x3 motor intact skin: Normal turgor PFSH Medical History Pain of right lower leg Bleeding hemorrhoids Family History Father Family hx of colon cancer Social History Household Members: [facility] Are you a primary residential child care counselor to a significant other at home: No Do you presently have visiting nurse or other home services: No Alcohol intake: current Alcohol intake frequency: 0-2 drinks per day Alcohol type: hard liquor Patient Tobacco Use Status: Never used Tobacco e-Cigarette/Vaping Use: Never Used Second Hand Smoke Exposure: No Advance Directives Date on File: 12/10/23 service: No Current occupational status: retired Cognitive needs: No Hearing needs: No Vision needs: Yes Questionnaire PHQ-9 Over the last 2 weeks, how often have you been bothered by any of the following problems? 1. Little interest or pleasure in doing things: several days 2. Feeling down, depressed, or hopeless: not at all 3. Trouble falling or staying asleep, or sleeping too much: not at all 4. Feeling tired or having little energy: several days 5. Poor appetite or overeating: not at all 6. Feeling bad about yourself - or that you are a failure or have let yourself or your family down: not at all 7. Trouble concentrating on things, such as reading the newspaper or watching television: several days 8. Moving or speaking so slowly that other people could have noticed. Or the opposite - being so fidgety or restless that you have been moving around a lot more than usual: several days 9. Thoughts that you would be better off or of hurting yourself in some way: not at all Total score: 4 Depression Screening Interpretation: Negative Depression Screening Done: Yes 45432 - PHQ-9 Billing: Yes Source: Developed by Drs. Saleem Stein, Paola Pool, Meek Bocanegra and colleagues, with an educational madhavi from [employer]. Thrive Questionnaire Date Thrive assessed: 05/16/25 I am a: Patient What is your living situation today?: I have a steady place to live Within the past 12 months, did the food you bought not last and you didn't have the money to get more?: Never true Within the past 12 months, did you worry whether your food would run out before you got money to buy more?: Never true Do you have trouble paying for medicines?: No Do you have trouble getting transportation to medical appointments?: No Do you have trouble paying your heating and electricity bill?: No Do you have trouble taking care of your child, family member or friend?: No Do you have trouble with day-to-day activities such as bathing, preparing meals, shopping, managing finances, etc.?: No Are you currently unemployed and looking for a job?: No Are you interested in more education?: No Please select the resources that you would like help with: Transportation Currently or been in a relationship where the following occur: No concerns reported THRIVE Score: 0 AUDIT C Alcohol Use Questionnaire (AUDIT-C) 1. How often do you have a drink containing alcohol?: 2-3 times a week 2. How many drinks containing alcohol do you have on a typical day when you are drinking?: 1 or 2 3. How often do you have six or more drinks on one occasion?: Never Total Score: 3 Score Reviewed/Action Taken: Yes OMI-7 AMB Questionnaire OMI-7 Date OMI - 7 assessed: 05/16/25 Feeling nervous, anxious, or on edge: 1 = Several days Not being able to stop or control worryin = Several days Worrying too much about different things: 1 = Several days Trouble relaxin = Several days Being so restless that it is hard to sit still: 0 = Not at all Becoming easily annoyed or irritable: 0 = Not at all Feeling afraid as if something awful might happen: 0 = Not at all Total OMI-7 score (0-4 normal; 5-9 mild; 10-14 moderate; 15-21 severe): 4 Source: Developed by Drs. Saleem Stein, Paola Pool, Meek Bocanegra and colleagues, with an educational madhavi from [employer]. OMI-7 Assessment Billing OMI-7 Assessment Tool: OMI-7 Assessment 41394 Physical exam (Primary Care) Vital Signs: Last Vital Signs Pulse 78 05/16/25 11:42 BP 144/78 H 05/16/25 11:42 Pulse Ox 98 05/16/25 11:42 BMI result Body Mass Index 20.9 Tobacco/Smoking Status: Tobacco use Status Tobacco use date assessed 05/16/25 05/16/25 11:44 Patient Tobacco Use Status Never used Tobacco 05/16/25 11:44 e-Cigarette/Vaping Use Never Used 05/16/25 11:44 PHQ-9: PHQ-9 Score PHQ-9: Total score 4 05/16/25 12:05 Depression Screening Interpretation: Negative Thrive Assessment: Date of Thrive Assessment Date Thrive assessed 05/16/25 05/16/25 11:44 Currently or been in a relationship where the following occur: No concerns reported Office Procedures Flu Questionnaire Does the patient have a severe egg allergy?: No Does the patient have severe life threatening allergies?: No Does the patient have a fever or illness today?: No Has the patient ever had Guillain-Datil Syndrome?: No Has the patient ever had any past reaction to a flu shot?: No Immunizations Fluarix (PF) 45 mcg (15 mcg x 3)/0.5 mL IM syringe Performing Provider: Chuck Morris MD Performing Location: [facility] Administered by: Seun Robles CMA on 05/16/25 12:05 Dose Route Admin Location Dispensed Lot Number Expiration Date NDC Landscape Management Technician 0.5 mL IM Right Deltoid 0.5 mL [id number] 02/27/26 [id number] [employer] VIS Given Date VIS Provided VIS Publication Date 05/16/25 Single Vaccine 24 Eligibility Eligibility Date Funding Source Not [facility] Eligible 05/16/25 Private Coding Level of Care Code Est Pt Level 4 (84486) Complex EM visit Add On G2211 Diagnoses Hypertension, essential I10 Other specified hypothyroidism E03.8 Age-related osteoporosis without current pathological fracture M81.0 Osteoporosis type: age-related Presence of current pathological fracture: without current pathological fracture Thrombocytosis D47.3 Idiopathic peripheral neuropathy G60.9 Peripheral neuropathy type: idiopathic neuropathy, unspecified Anxiety, generalized F41.1 Status post fracture of left tibia Z87.81 Dependent on walker for ambulation Z99.89 Primary osteoarthritis of both knees M17.0 Osteoarthritis type: primary Additional Codes OMI-7 Assessment Billing - OMI-7 Assessment Tool: OMI-7 Assessment 59634 ([id number]) PHQ-9 - 51773 - PHQ-9 Billing: Yes ([id number]) Assessment & Plan Assessment & Plan (1) Hypertension, essential: Code(s): I10 - Essential (primary) hypertension Category: Medical (2) Other specified hypothyroidism: Code(s): E03.8 - Other specified hypothyroidism Category: Medical (3) Osteoporosis: Code(s): M81.0 - Age-related osteoporosis without current pathological fracture Category: Medical Qualifiers: Osteoporosis type: age-related Presence of current pathological fracture: without current pathological fracture Qualified Code(s): M81.0 - Age-related osteoporosis without current pathological fracture (4) Thrombocytosis: Code(s): D47.3 - Essential (hemorrhagic) thrombocythemia Category: Medical (5) Peripheral neuropathy: Code(s): G62.9 - Polyneuropathy, unspecified Category: Medical Qualifiers: Peripheral neuropathy type: idiopathic neuropathy, unspecified Qualified Code(s): G60.9 - Hereditary and idiopathic neuropathy, unspecified (6) Anxiety, generalized: Code(s): F41.1 - Generalized anxiety disorder Category: Medical (7) Status post fracture of left tibia: Code(s): Z87.81 - Personal history of (healed) traumatic fracture Category: Medical (8) Dependent on walker for ambulation: Code(s): Z99.89 - Dependence on other enabling machines and devices Category: Medical (9) Osteoarthritis of knees, bilateral: Code(s): M17.0 - Bilateral primary osteoarthritis of knee Category: Medical Qualifiers: Osteoarthritis type: primary Qualified Code(s): M17.0 - Bilateral primary osteoarthritis of knee Plan History The patient is an 84-year-old female presenting with follow-up for a tibial shaft fracture and general health maintenance. Left tibial shaft fracture: - The fracture occurred as a result of a fall in the bathroom. - Underwent percutaneous fixation of the left tibial shaft fracture. - Injuries sustained occurred in November of this year. - Patient currently experiences some residual pain but considers it manageable. - Utilizing a walker for extra security, although she can ambulate without it. - Patient anticipates visiting orthopedics for follow-up in about two weeks. Medical History: -risk for fall - Asthma - Hypertension - thrombocytosis - hypothyroidism Medications: - Alendronate (Fosamax), for bone density - Atenolol 25 mg, twice daily, for hypertension - Levothyroxine 50 mcg, for thyroid function - Gabapentin, used at night for sleep Social History: - Resides in a living facility called [facility] - Sold previous home and vehicle as part of transitioning into the living facility - Manages own medication by herself - Reports reduced anxiety due to relocation and management of household responsibilities Family History: - , Dennis, experiencing dementia and residing in a intermediate Problem List - Left tibial shaft fracture - Hypertension - Asthma - Thrombocytosis - hypothyroidism - peripheral neuropathy [place] of Care - Receiving additional care and follow-up from orthopedics at [facility] Patient Instructions - Continue using the walker for support as needed. - Arrange blood tests to check platelet levels at convenience. - Visit orthopedics for follow-up in two weeks. - Consider contacting the pharmacy for a senior dose flu shot. - follow-up 4 months, continue medications Orders: Orders Complete Blood Count Auto Diff Today D47.3 - Essential (hemorrhagic) thrombocythemia, E03.8 - Other specified hypothyroidism, F41.1 - Generalized anxiety disorder, G60.9 - Hereditary and idiopathic neuropathy, unspecified, I10 - Essential (primary) hypertension, M81.0 - Age-related osteoporosis without current pathological fracture, Z87.81 - Personal history of (healed) traumatic fracture, Z99.89 - Dependence on other enabling machines and devices TSH reflex Free T4 Today D47.3 - Essential (hemorrhagic) thrombocythemia, E03.8 - Other specified hypothyroidism, F41.1 - Generalized anxiety disorder, G60.9 - Hereditary and idiopathic neuropathy, unspecified, I10 - Essential (primary) hypertension, M81.0 - Age-related osteoporosis without current pathological fracture, Z87.81 - Personal history of (healed) traumatic fracture, Z99.89 - Dependence on other enabling machines and devices Comprehensive Met. Panel Today D47.3 - Essential (hemorrhagic) thrombocythemia, E03.8 - Other specified hypothyroidism, F41.1 - Generalized anxiety disorder, G60.9 - Hereditary and idiopathic neuropathy, unspecified, I10 - Essential (primary) hypertension, M81.0 - Age-related osteoporosis without current pathological fracture, Z87.81 - Personal history of (healed) traumatic fracture, Z99.89 - Dependence on other enabling machines and devices Influenza [id number] Immunization Today Z23 - Encounter for immunization Medications: Discontinued celecoxib (Celebrex) Discontinued Reason: Doctor's Order 200 mg (2 x 100 mg) PO DAILY 30 caps 0RF
--- OUTSIDE RECORDS SUMMARY | 2025-05-16 15:48 | XMS_ITS | Clinical Summary ---
Author Organization [facility] Facility Address [address] [place] [id number] Care Team Providers Care [place] Machine Operator Name Role Phone Chuck Morris MD Primary Care Provider [phone] Allergies No known active allergies Medications levothyroxine [...] of 2 - PCV) 1959 Influenza Vaccine (#1) 2025 Hepatitis B Vaccine Aged Out No longe r eligible based on patient's age to complete this topic Insurance Medicare [facility] Medicare [facility] Care Teams [employer] Machine Operator Relationship Specialty Start Date End Date Chuck Morris MD [address] [place] [address] [id number] PCP - General Internal Medicine 08/05/22
== END 2025-05-16 12:08 | disposition home or self-care (01) ==
LOC: HO.HMCC 11:36
PROVIDERS: PCP Internal Medicine; Visit Provider Internal Medicine
DX: I10 Essential (primary) hypertension (principal); E03.8 Other specified hypothyroidism; M81.0 Age-related osteoporosis without current pathological fracture; D47.3 Essential (hemorrhagic) thrombocythemia; G60.9 Hereditary and idiopathic neuropathy, unspecified; F41.1 Generalized anxiety disorder; Z87.81 Personal history of (healed) traumatic fracture; Z99.89 Dependence on other enabling machines and devices; M17.0 Bilateral primary osteoarthritis of knee; Z23 Encounter for immunization

== ENCOUNTER 2025-05-16 11:36 | Outpatient (REF) | payer MEDICARE, SELFPAY ==
[2025-05-16 13:39] LABS: MANUAL DIFF FLAG NO
[2025-05-16 14:03] LABS: Hematocrit 52.9 % (37.0-47.0); Hemoglobin 15.8 g/dl (12.0-16.0); Imm Gran Abs Auto 0.07 X10*3/uL (0.00-0.03); Imm Gran Pct Auto 0.4 % (0.0-0.4); Lymphocytes Absolute Auto 2.0 X10*3/uL (1.2-4.9); Mean Corpuscular HGB Conc 29.9 g/dl (31.0-35.0); Mean Corpuscular Hemoglobin 22.9 pg (27.0-33.0); Mean Corpuscular Volume 76.6 fL (80.0-98.0); NRBC Abs Auto 0.000 X10*3/uL (0.0-0.012); NRBC Pct Auto 0.0 /100WBC (0.0-0.2); Red Blood Count 6.91 X10*6/uL (4.20-5.50); White Blood Count 15.6 X10*3/uL (4.8-10.8)
[2025-05-16 14:37] LABS: Platelet Count 1047 X10*3/uL (160-400)
[2025-05-16 14:46] LABS: Alanine Aminotransferase 18 U/L (0-31); Albumin Level 4.3 g/dL (3.5-5.0); Alkaline Phosphatase 121 U/L (39-117); Anion Gap 15 (12-20); Aspartate Amino Transferase 27 U/L (5-31); Blood Urea Nitrogen 15 mg/dL (9-16); Calcium 9.4 mg/dL (8.4-10.2); Carbon Dioxide 30 mmol/L (22-29); Chloride 103 mmol/L (96-108); Estimated Glomerular Filt Rate > 60; Potassium 4.0 mmol/L (3.3-5.1); Sodium 144 mmol/L (135-145); Total Protein 6.6 g/dL (6.5-8.0)
== END 2025-05-16 11:37 | disposition home or self-care (01) ==
LOC: HO.HMGCLDS 11:36
PROVIDERS: PCP Internal Medicine; Visit Provider Internal Medicine
DX: Z23 Encounter for immunization (principal); I10 Essential (primary) hypertension; E03.8 Other specified hypothyroidism; M81.0 Age-related osteoporosis without current pathological fracture; D47.3 Essential (hemorrhagic) thrombocythemia; G60.9 Hereditary and idiopathic neuropathy, unspecified; F41.1 Generalized anxiety disorder; M17.0 Bilateral primary osteoarthritis of knee; Z87.81 Personal history of (healed) traumatic fracture; Z99.89 Dependence on other enabling machines and devices
CPT/HCPCS: 36415; 80053; 84443; 85025; 90471; 90656; 96127; 99212

== ENCOUNTER 2025-08-09 10:57 | Outpatient (REF) | payer MEDICARE, SELFPAY | END 2025-08-09 10:58 | disposition home or self-care (01) | LOC: HO.BBR 10:57 | PROVIDERS: PCP Internal Medicine; Visit Provider Internal Medicine Medical Oncology | DX: D45 Polycythemia vera (principal) | CPT/HCPCS: 85018; 99195 ==